=== PATIENT | male | born 1955 | race Caucasian/White ===

== ENCOUNTER → 2021-10-25 09:49 | Outpatient (BNVA) | payer OTHER, SELFPAY | PROVIDERS: Family Provider Family Medicine; PCP Family Medicine; Visit Provider Surgery | DX: Z12.11 Encounter for screening for malignant neoplasm of colon (principal) | CPT/HCPCS: 99203 ==

== ENCOUNTER 2021-11-08 11:12 | Outpatient (CLI) | payer OTHER, SELFPAY ==
--- NOTE | 2021-11-08 13:15 | PFTS_ITS ---
Date of Study:11/08/21 Date of Dictation: 11/11/21 MECHANICS: Postbronchodilator forced vital capacity (FVC) is normal. Postbronchodilator forced expiratory volume in one second (FEV1) is moderately reduced. FEV1/FVC is reduced. There is no significant response to bronchodilator FLOW VOLUME LOOP: Sloping of expiratory limb suggestive of airflow obstruction. LUNG VOLUMES: Total lung capacity (TLC) is normal. Residual volume (RV) is normal. DIFFUSING CAPACITY FOR CARBON MONOXIDE: normal. INTERPRETATION: The Spirometry showed moderate airflow obstruction. There is no significant response to bronchodilators. Lung volumes and gas transfer are normal. Clinical correlation recommended. MTDD
== END 2021-11-08 11:13 | disposition home or self-care (01) ==
LOC: RT 11:14
PROVIDERS: PCP Family Medicine; Visit Provider Family Medicine
DX: J44.9 Chronic obstructive pulmonary disease, unspecified (principal)
CPT/HCPCS: 94060; 94726; 94729; J7614

== ENCOUNTER 2022-01-26 09:24 | Day surgery (SDC) | payer OTHER, SELFPAY ==
[2022-01-24 14:15] VITALS: BMI 28.0
--- NOTE | 2022-01-26 06:52 | W.PM.OPSFHP ---
Same Day Surgery H&P Indication for Procedure/HPI DATE OF PROCEDURE: January 26, 2022 CHIEF COMPLAINT/INDICATIONFOR SURGICAL PROCEDURE: Screening colonoscopy PREOP DIAGNOSIS: Screening colonoscopy PLANNED PROCEDURE: Operation Date: 01/26/22 10:30 Proposed Procedures p Colonoscopy 76272,Z12.11(Not Applicable) - Andrey Roger MD 10/25/2021 This is a pleasant 66 years old gentleman was referred to my practice for screening colonoscopy.? Patient denies any history of bleeding per rectum or colon cancer or weight loss.? He also reports asymptomatic umbilical hernia had a cystic lesion on the right side of the abdomen where he does not have any complaints about both.? At present time.??Patient gives history of previous neck surgery back in 2017. Interim history 01/26/2022 Patient comes today for screening colonoscopy ROS All systems have been reviewed negative except as for the above or per problem list. Medications/Allergies* Home Medications Medication Instructions Recorded Confirmed Type cholecalciferol (vitamin D3) 25 25 mcg PO DAILY 01/05/21 01/26/22 History mcg (1,000 unit) capsule furosemide 20 mg tablet (Lasix) 10 mg PO QAM 01/05/21 01/26/22 History hydrochlorothiazide 12.5 mg capsule 12.5 mg PO DAILY 01/05/21 01/26/22 History metoclopramide HCl 5 mg tablet 5 mg PO DAILY 01/05/21 01/26/22 History amlodipine 10 mg tablet 10 mg PO DAILY 10/25/21 01/26/22 History atorvastatin 40 mg tablet 40 mg PO DAILY 10/25/21 01/26/22 History cetirizine 10 mg tablet 10 mg PO DAILY PRN Allergy Symptoms 10/25/21 01/26/22 History fluticasone 250 mcg-salmeterol 50 1 inh inhalation BID 10/25/21 01/26/22 History mcg/dose blistr powdr for inhalation (Wixela Inhub) hydrocodone 10 mg-acetaminophen 1 tab PO Q4H PRN Pain 10/25/21 01/26/22 History 325 mg tablet Allergies/Adverse Reactions Allergy/AdvReac Type Severity Reaction Status Date / Time No Known Allergies Allergy Verified 01/26/22 09:55 Pertinent History/Comorbid Conditions* Medical History (Updated 03/30/21 @ 14:15 by Katie Cantu DO) COPD (chronic obstructive pulmonary disease) History of ganglion cyst removal Hypertension Surgical History (Updated 01/09/22 @ 14:43 by Katie Cantu DO) History of decompression of ulnar nerve History of neck surgery 01/2017 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 -2007 Family History (Updated 01/05/21 @ 10:43 by Betty Walton) Diabetes Lung disease Denies family history of CAD (coronary artery disease) Chronic kidney disease (CKD) Cancer Stroke Social History Smoking and tobacco status: former smoker Second hand smoke exposure: No Alcohol intake: current Alcohol intake frequency: holidays/special occasions only Lives independently: Yes Pertinent Exam Findings alert, oriented x 3, regular rate & rhythm (Presence of precordial murmur) and procedure specific exam findings (Abdominal exam nontender nondistended soft) Recommendations Surgery/Procedure today (Screening colonoscopy) Coding Level of Care Code Acute Wink Cutter Operator for Alex Ruffin
[2022-01-26 09:51] VITALS: BP 168/99; PULSE 93; RESP 18; TEMP 36.6; O2SAT 95
--- NOTE | 2022-01-26 09:54 | PC.NURSE ---
patient c/o left upper arm pain x5 years. recently changed pain med to hydrocodone, states it has helped some. has an appointment with pain management on march 14.
[2022-01-26] MEDS: sodium chloride 0.9% 1,000 ML 30 ML IV (10:04)
--- NOTE | 2022-01-26 10:08 | ANES.PREANE2 ---
Pre-Anesthetic Assessment Height/Weight: Height 1.96 m Weight 107.048 kg Temp Pulse Resp BP Pulse Ox O2 Del Method 97.9 F 93 18 168/99 95 01/26/22 09:51 01/26/22 09:51 01/26/22 09:51 01/26/22 09:51 01/26/22 09:51 01/26/22 09:51 Preop Diagnosis: Screening colonoscopy Operation Date: 01/26/22 10:30 Proposed Procedures p Colonoscopy 54057,Z12.11(Not Applicable) - Andrey Roger MD Familial anesthetic complications: none Was Beta Merari taken within 24 hours: N/A Was Clonidine taken within 24 hours: N/A Last intake: Intake Last Liquid Date 01/25/22 Last Liquid Time 22:00 Last Solid Date 01/24/22 Last Solid Time 18:00 Last Intake: 22:00 Social Alcohol (2-3 beers day) and No tobacco Exam alert, oriented x 3, clear to auscultation bilaterally and regular rate & rhythm Airway Submandibular: within normal limits Cervical ROM: within normal limits Mallampati: Class I Dentition: false Pulmonary Chronic Obstructive Pulmonary Disease CV/HEM Hypertension and Murmur None reported Hepatic None reported GI None reported Metabolic None reported Musc/skel Lower Back Pain and Osteoarthritis/DJD Anesthetic Plan ASA status: 3 Anesthesia: MAC Risk of > 500 ml blood loss (7ml/kg in children): No Medications/Allergies Home Medications Medication Instructions Recorded Confirmed Last Taken Type cholecalciferol (vitamin D3) 25 25 mcg PO DAILY 01/05/21 01/26/22 01/25/22 History mcg (1,000 unit) capsule furosemide 20 mg tablet (Lasix) 10 mg PO QAM 01/05/21 01/26/22 01/25/22 History hydrochlorothiazide 12.5 mg capsule 12.5 mg PO DAILY 01/05/21 01/26/22 01/26/22 History metoclopramide HCl 5 mg tablet 5 mg PO DAILY 01/05/21 01/26/22 01/25/22 History calcipotriene 0.005 % topical 1 applic topical BID #120 grams 07/11/21 01/26/22 01/17/22 Rx ointment amlodipine 10 mg tablet 10 mg PO DAILY 10/25/21 01/26/22 01/25/22 History atorvastatin 40 mg tablet 40 mg PO DAILY 10/25/21 01/26/22 01/25/22 History cetirizine 10 mg tablet 10 mg PO DAILY PRN Allergy Symptoms 10/25/21 01/26/22 12/19/21 History fluticasone 250 mcg-salmeterol 50 1 inh inhalation BID 10/25/21 01/26/22 01/26/22 History mcg/dose blistr powdr for inhalation (Wixela Inhub) hydrocodone 10 mg-acetaminophen 1 tab PO Q4H PRN Pain 10/25/21 01/26/22 01/11/22 History 325 mg tablet Allergies Allergy/AdvReac Type Severity Reaction Status Date / Time No Known Allergies Allergy Verified 01/26/22 09:55 Current Medications Generic Name Dose Route Start Last Admin Trade Name Freq PRN Reason Stop Dose Admin Sodium Chloride 1,000 mls @ 30 mls/hr 01/26/22 09:30 01/26/22 10:04 Sodium Chloride 0.9% IV 01/27/22 09:29 30 mls/hr .Q24H MIGDALIA Administration PFSH Anesthesia Medical History COPD (chronic obstructive pulmonary disease) History of ganglion cyst removal Hypertension Surgical History History of decompression of ulnar nerve History of neck surgery 01/2017 History of surgery external aneurysm on right taoism -2007 Family History Other Diabetes Lung disease Denies family history of CAD (coronary artery disease) Chronic kidney disease (CKD) Cancer Stroke Social History Smoking and tobacco status: former smoker Second hand smoke exposure: No Alcohol intake: current Alcohol intake frequency: holidays/special occasions only Lives independently: Yes Data Anesthesia Cardiac Studies: No Data to Display
[2022-01-26 11:18] VITALS: BP 124/83; PULSE 78; RESP 16; TEMP 36.1; O2SAT 97
[2022-01-26 11:28] VITALS: BP 132/68; PULSE 87; RESP 18; O2SAT 96
--- NOTE | 2022-01-26 13:53 | ANE.PACU2 ---
Inpatient post-anesthesia follow up: Airway intact: Yes Vital signs: Temperature 97.0 F Pulse Rate 87 Respiratory Rate 18 Blood Pressure 132/68 Pulse Oximetry 96 Oxygen Delivery Me thod Room Air Oxygen Flow Rate 4 Fraction of Inspir ed Oxygen Hydration adequate: Yes Nausea and vomiting: No Pain level: 1 Mental status: Baseline
== END 2022-01-26 12:07 | disposition home or self-care (01) ==
PROVIDERS: PCP Family Medicine; Visit Provider Surgery
PROC: 0DJD8ZZ Inspection of Lower Intestinal Tract, Via Natural or Artificial Opening Endoscopic (ICD-10-PCS; CPT 45378; principal; 2022-01-26 10:30)
DX: Z12.11 Encounter for screening for malignant neoplasm of colon (principal); D12.2 Benign neoplasm of ascending colon; D12.4 Benign neoplasm of descending colon; D12.5 Benign neoplasm of sigmoid colon; D12.3 Benign neoplasm of transverse colon; D12.8 Benign neoplasm of rectum; K57.30 Diverticulosis of large intestine without perforation or abscess without bleeding; J44.9 Chronic obstructive pulmonary disease, unspecified; I10 Essential (primary) hypertension; Z87.891 Personal history of nicotine dependence
CPT/HCPCS: 45385; 88305; J2704; J7030

== ENCOUNTER → 2022-01-31 10:15 | Outpatient (BNVA) | payer OTHER, SELFPAY | PROVIDERS: PCP Family Medicine; Visit Provider Surgery | DX: Z09 Encounter for follow-up examination after completed treatment for conditions other than malignant neoplasm (principal); K57.31 Diverticulosis of large intestine without perforation or abscess with bleeding; K63.5 Polyp of colon | CPT/HCPCS: 99213 ==

== ENCOUNTER → 2022-05-23 11:39 | Outpatient (BNVA) | payer OTHER, SELFPAY | PROVIDERS: PCP Family Medicine; Visit Provider Anesthesiology Pain Medicine | DX: M54.12 Radiculopathy, cervical region (principal); M79.601 Pain in right arm; M79.602 Pain in left arm | CPT/HCPCS: 72040; 99203 ==

== ENCOUNTER → 2022-06-04 10:43 | Outpatient (BNVA) | payer OTHER, SELFPAY | PROVIDERS: PCP Family Medicine; Referring Provider Family Medicine; Visit Provider Student in an Organized Health Care Education/Training Program | DX: G56.22 Lesion of ulnar nerve, left upper limb (principal) | CPT/HCPCS: 99204 ==

== ENCOUNTER 2022-07-11 10:20 | Outpatient (CLI) | payer OTHER, SELFPAY ==
--- NOTE | 2022-07-11 10:30 | CT_ITS ---
WS: [id number] CT CERVICAL SPINE HISTORY: M54.12 - Radiculopathy, cervical region TECHNIQUE: Contiguous 2.0 mm axial imaging performed through the entire cervical spine. Sagittal and coronal reformats also performed. All CT scans at [facility] use at least one of these dose o ptimization techniques: automated exposure control; mA and/or kV adjustment per patient size (include s targeted exams where dose is matched to clinical indication); or iterative reconstruction. DLP: 762.20 mGy.cm COMPARISON: 08/14/2017 Prior anterior cervical fusion extends from C3 through C6. Interbody spacers at C3-4, C4-5 and C5-C6 are fused. 2 mm retrolisthesis of C2 and 2 mm anterolisthesis of C6. No fractures. C1 and C2 are normally aligned. The odontoid is intact. Craniocervical junction is normal. C2-C3: Mild osteophytic ridging C2 with mild encroachment upon the ventral thecal sac and mild forami nal narrowing. C3-C4: Bilateral moderate facet joint arthritis with bilateral foraminal stenosis. Slightly greater s tenosis on the RIGHT. C4-C5: Moderate bilateral facet joint arthritis with moderate foraminal stenosis. C5-C6: Mild osteophytic ridging with marked bilateral facet joint arthritis, LEFT greater than RIGHT. Moderate to severe foraminal stenosis, LEFT greater than RIGHT. C6-C7: Marked bilateral facet joint arthritis. Severe bilateral foraminal stenosis with mild encroach ment upon the ventral thecal sac. C7-T1: Mild osteophytic ridging. Facet joint osteophytes encroach into the foramina. At least moderat e foraminal stenosis due to osteophyte disease. Fibrosis at the lung apices. Scattered calcifications in the carotid arteries. CT/CT cervical spin wo con* [id number] IMPRESSION: 1. Anterior cervical fusion with interbody spacers from C3 to C6 is intact. Fu chandni across the interbody spacers. 2. Multilevel moderate to severe foraminal stenosis and facet joint arthritis. Hypertrophic bone formation with significant contribution to the foraminal yuliana nosis. Stenosis is most significant at C5-6 and C6-7.
== END 2022-07-11 10:21 | disposition home or self-care (01) ==
LOC: RAD 10:22
PROVIDERS: PCP Family Medicine; Visit Provider Anesthesiology Pain Medicine
DX: M54.12 Radiculopathy, cervical region (principal); Z98.1 Arthrodesis status; M48.02 Spinal stenosis, cervical region
CPT/HCPCS: 72125

== ENCOUNTER → 2022-07-30 09:58 | Outpatient (BNVA) | payer OTHER, SELFPAY | PROVIDERS: PCP Family Medicine; Visit Provider Student in an Organized Health Care Education/Training Program | DX: G56.22 Lesion of ulnar nerve, left upper limb (principal); Z98.890 Other specified postprocedural states | CPT/HCPCS: 99213 ==

== ENCOUNTER → 2022-08-21 10:30 | Outpatient (BNVA) | payer OTHER, SELFPAY | PROVIDERS: PCP Family Medicine; Visit Provider Anesthesiology Pain Medicine | DX: M50.323 Other cervical disc degeneration at C6-C7 level (principal); M48.02 Spinal stenosis, cervical region; Z98.890 Other specified postprocedural states | CPT/HCPCS: 99204; 99214 ==

== ENCOUNTER → 2022-10-10 09:40 | Outpatient (BNVA) | payer OTHER, SELFPAY | PROVIDERS: PCP Family Medicine; Visit Provider Anesthesiology Pain Medicine | DX: M54.50 Low back pain, unspecified (principal); M54.2 Cervicalgia | CPT/HCPCS: 99215 ==

== ENCOUNTER → 2022-12-05 09:40 | Outpatient (BNVA) | payer OTHER, SELFPAY | PROVIDERS: PCP Family Medicine; Visit Provider Anesthesiology Pain Medicine | DX: M48.02 Spinal stenosis, cervical region; M50.323 Other cervical disc degeneration at C6-C7 level; Z98.890 Other specified postprocedural states | CPT/HCPCS: 99214 ==

== ENCOUNTER → 2022-12-12 12:19 | Outpatient (BNVA) | payer OTHER, SELFPAY | PROVIDERS: PCP Family Medicine; Visit Provider Anesthesiology Pain Medicine | DX: M54.16 Radiculopathy, lumbar region (principal) | CPT/HCPCS: 64483; 64484; J1100; J3490 ==

== ENCOUNTER → 2023-01-09 13:43 | Outpatient (BNVA) | payer OTHER, SELFPAY | PROVIDERS: PCP Family Medicine; Visit Provider Anesthesiology Pain Medicine | DX: M54.16 Radiculopathy, lumbar region (principal) | CPT/HCPCS: 64483; 64484; J1100; J3490 ==

== ENCOUNTER → 2023-01-23 10:44 | Outpatient (BNVA) | payer OTHER, SELFPAY | PROVIDERS: PCP Family Medicine; Visit Provider Anesthesiology Pain Medicine | DX: M54.9 Dorsalgia, unspecified (principal); M48.02 Spinal stenosis, cervical region; L40.0 Psoriasis vulgaris; L57.0 Actinic keratosis; L57.8 Other skin changes due to chronic exposure to nonionizing radiation; L72.0 Epidermal cyst | CPT/HCPCS: 17000; 99213; 99214; 99215 ==

== ENCOUNTER → 2023-02-13 09:33 | Outpatient (BNVA) | payer OTHER, SELFPAY | PROVIDERS: PCP Family Medicine; Visit Provider Anesthesiology Pain Medicine | DX: M79.18 Myalgia, other site (principal); M54.12 Radiculopathy, cervical region | CPT/HCPCS: 20553; 99215; J1030; J3490 ==

== ENCOUNTER 2023-03-20 09:40 | Outpatient (CLI) | payer OTHER, SELFPAY ==
--- NOTE | 2023-03-20 11:00 | MR_ITS ---
WS: [id number] MRI LUMBAR SPINE NONCONTRAST TECHNIQUE: Sagittal T1, T2 and STIR imaging. Axial T1 and T2 imaging. CLINICAL INFORMATION: M48.062 - Spinal stenosis, lumbar region with neurogenic ... COMPARISON: MRI 2017 FINDINGS: Counting performed from the craniocervical junction. 13 rib-bearing thoracic vertebral bodies. 5 lumb ar type vertebral bodies considered L1-L5 for the purposes of this dictation. Small riblets at T12. S mall central protrusion at T12-L1 with mild central canal stenosis. This is progressed compared to pr evious. L1-L2: Mild disc bulging with slight effacement of the ventral thecal sac. Spinal canal and foramen a re patent. L2-L3: Disc bulging with moderate to severe narrowing of the thecal sac with crowding of the cauda eq uina nerve rootlets. Prominent dorsal epidural fat results in thecal sac narrowing. Moderate facet ar thropathy. Mild RIGHT foraminal narrowing. Central canal stenosis at this level has progressed. L3-L4: Moderate to severe narrowing of the thecal sac mainly due to prominent dorsal epidural fat pro gressed compared to previous. Crowding of the cauda equina nerve rootlets. Moderate facet arthropathy . Ligamentum flavum hypertrophy. Moderate to severe LEFT foraminal narrowing with impingement on the exiting LEFT L3 nerve root progressed compared to previous. L4-L5: Grade 1 anterolisthesis. Mild disc bulge with osteophytic ridging. Narrowing of the subarticul ar recess bilaterally. Mild central canal stenosis. This has progressed compared to previous. Advance d facet arthropathy and ligamentum flavum hypertrophy. Small facet effusions. Mild RIGHT and no signi ficant LEFT foraminal narrowing. L5-S1: Mild annular bulging with slight effacement of the ventral thecal sac. Spinal canal and forame n are patent. Mild facet arthropathy. Small LEFT renal cyst. Multiple central disc protrusions in the mid and lower thoracic spine with con tact of the thoracic cord seen on the garnett feeder imaging. This could be further evaluated with thoracic sp ine MRI. Visualized pelvic bony structures: Normal. Paravertebral soft tissues: Normal. IMPRESSION: 1. Counting performed from the craniocervical junction. 13 rib-bearing thoracic vertebral bodies. 5 lumbar type vertebral bodies considered L1-L5 for the purposes of this dictation. 2. Moderate to severe narrowing of the thecal sac L2-L3 and L3-L4 with crowding of the cauda equina nerve rootlets progressed compared to previous. This is primarily due to increased dorsal epidural fa t. 3. Mild central canal stenosis L4-5 with impingement on the traversing RIGHT greater than LEFT L5 ne rve roots. 4. Moderate to severe LEFT L3-4 foraminal narrowing with impingement on the exiting LEFT L3 nerve ro ot. 5. Mild RIGHT L4-5 foraminal narrowing. 6. Mild multilevel moderate to severe facet arthropathy worse at L3-L4 and L4-L5 with bilateral face t effusions at L4-5.
== END 2023-03-20 09:41 | disposition home or self-care (01) ==
PROVIDERS: PCP Family Medicine; Visit Provider Anesthesiology Pain Medicine
DX: M48.062 Spinal stenosis, lumbar region with neurogenic claudication (principal); M47.817 Spondylosis without myelopathy or radiculopathy, lumbosacral region; M54.16 Radiculopathy, lumbar region
CPT/HCPCS: 72148

== ENCOUNTER 2023-04-17 10:10 | Outpatient (CLI) | payer OTHER, SELFPAY ==
[2023-04-17 13:53] VITALS: PULSE 96; RESP 16; O2SAT 98
[2023-04-17] MEDS: albuterol 2.5 mg/3 mL Neb INHALATION (13:57)
[2023-04-17 13:58] VITALS: PULSE 99
== END 2023-04-17 10:11 | disposition home or self-care (01) ==
LOC: RT 10:10
PROVIDERS: PCP Family Medicine; Visit Provider Nurse Practitioner Family
DX: M48.02 Spinal stenosis, cervical region (principal); Z01.89 Encounter for other specified special examinations; G62.9 Polyneuropathy, unspecified; Z87.891 Personal history of nicotine dependence; Z98.1 Arthrodesis status; R94.2 Abnormal results of pulmonary function studies
CPT/HCPCS: 94060; 94729; 99214

== ENCOUNTER → 2023-05-01 13:03 | Outpatient (BNVA) | payer OTHER, SELFPAY | PROVIDERS: PCP Family Medicine; Visit Provider Anesthesiology Pain Medicine | DX: M79.18 Myalgia, other site (principal); M54.9 Dorsalgia, unspecified; M54.2 Cervicalgia; M25.552 Pain in left hip | CPT/HCPCS: 20553; 99213; J1030; J3490 ==

== ENCOUNTER → 2023-05-20 10:18 | Outpatient (BNVA) | payer OTHER, SELFPAY | PROVIDERS: PCP Family Medicine; Visit Provider Anesthesiology Pain Medicine | DX: M47.817 Spondylosis without myelopathy or radiculopathy, lumbosacral region (principal); M48.061 Spinal stenosis, lumbar region without neurogenic claudication; M48.02 Spinal stenosis, cervical region; M47.812 Spondylosis without myelopathy or radiculopathy, cervical region | CPT/HCPCS: 99215 ==

== ENCOUNTER → 2023-06-21 11:16 | Outpatient (BNVA) | payer OTHER, SELFPAY | PROVIDERS: PCP Family Medicine; Referring Provider Family Medicine; Visit Provider Orthopaedic Surgery | DX: M43.16 Spondylolisthesis, lumbar region (principal); M48.061 Spinal stenosis, lumbar region without neurogenic claudication; Z01.812 Encounter for preprocedural laboratory examination; Z79.899 Other long term (current) drug therapy | CPT/HCPCS: 36415; 72110; 80053; 81001; 85025; 87077; 87086; 87186; 99214 ==

== ENCOUNTER 2023-07-12 12:22 | Inpatient (IN) | payer OTHER, SELFPAY ==
[2023-07-12] VITALS (32 sets, daily range): BP systolic 75–148; BP diastolic 60–94; PULSE 73–123; RESP 10–25; TEMP 36.6–36.8; O2SAT 90–96
--- NOTE | 2023-07-12 12:39 | ECG_ITS ---
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 Measurements Intervals [place] Rate: 145 P: 0 AR: 0 QRS: -10 QRSD: 98 T: 87 QT: 301 QTc: 468 Interpretive Statements ATRIAL FIBRILLATION WITH RAPID VENTRICULAR RESPONSE MODERATE VOLTAGE CRITERIA FOR LVH, CONSIDER NORMAL VARIANT [MEETS CRITERIA IN ONE OF: R(aVL), S(V1), R(V5), R(V5/V6)+S(V1)] POSSIBLE SEPTAL MYOCARDIAL INFARCTION , PROBABLY OLD [30 ms Q WAVE IN V1/V2] ABNORMAL RHYTHM ECG No previous ECG available for comparison Electronically Signed On 07-12-2023 17:59:41 ASSEMBLY INSPECTOR by Burton Mooney M.D. [id number]
--- NOTE | 2023-07-12 12:39 | XR_ITS ---
WS: [id number] Exam: XR chest 1V portable [id number] Date/Time of Exam: 07/12/2023 12:49 PM Reason For Exam: palpitations Comparison with outside images performed 09/27/2021. The lungs are clear and fully expanded. Normal cardiomediastinal silhouette. No pleural effusions. Un remarkable bony structures. Fusion hardware in the lower C-spine. IMPRESSION: 1. No acute cardiopulmonary finding.
[2023-07-12] MEDS: dilTIAZem 5 mg/mL SDV 5 mL 10 MG IVP ×2 (12:52→13:22)
[2023-07-12] MEDS: aspirin 81 mg Chew Tablet 324 MG PO (12:52)
[2023-07-12] MEDS: ondansetron 2 mg/ML SDV 2 mL 4 MG IVP (12:52)
[2023-07-12 12:53] LABS: Basophils # 0.1 10^3/uL (0.0-0.1); Basophils % 0.8 %; Eosinophils # 0.1 10^3/uL (0.0-0.8); Eosinophils % 0.6 %; Hematocrit 44.8 % (37-53); Lymphocytes # 1.4 10^3/uL (0.8-4.8); Lymphocytes % 11.5 %; Mean Corpuscular HGB Conc 34.6 g/dL (30-55); Mean Corpuscular Hemoglobin 32.5 pg (27-33); Mean Corpuscular Volume 93.9 fl (82-101); Mean Platelet Volume 12.2 fL (7.4-10.4); Monocytes # 0.9 10^3/uL (0.2-0.9); Monocytes % 7.6 %; Neutrophils # 9.27 10^3/uL (1.8-7.7); Neutrophils % 78.8 %; Nucleated Red Blood Cells % 0 %; Platelet Count 139 10^3/cmm (157-399); Red Blood Count 4.77 10^6/uL (3.85-5.65); Red Cell Distribution Width 16.3 % (12.1-15.1); White Blood Count 11.78 10^3/uL (3.29-11.43)
[2023-07-12] MEDS: sodium chloride 0.9% 1,000 ML 999 ML IV (12:53)
--- NOTE | 2023-07-12 13:06 | W.ED.ARRPALP ---
HPI - Arrhythmia/Palpitations General: Chief Complaint: Arrhythmia/Palpitations Stated Complaint: sent over by , irregular heartbeat Time Seen by Provider: 07/12/23 12:38 History of Present Illness: 77-year-old male presents emergency department chief complaint of palpitations and concerns of atrial fibrillation patient was doing some outpatient testing for preoperative clearance for back surgery is coming up in which patient was noted to be an elevated heart rate in the 140s concerning for atrial fibrillation. Patient does not endorse any chest pain palpitations water rate retention or current weight gain patient does not endorse any chest pain at this time patient does not recall any prior history of any cardiac issues. The patient appears asymptomatic at this time patient was presented to the ER for further assessment and management. Associated symptoms: Deny anxiety, nausea or vomiting Review of Systems General: Reports: 10 or more systems reviewed and unremarkable except in HPI and below Const: Denies: fever(s), chills, fatigue or malaise Eyes: Denies: change in vision or blurry vision Card: Denies: chest pain or palpitations Resp: Denies: dyspnea or productive cough GI: Denies: abdominal pain, nausea or vomiting : Denies: flank pain Musc: Denies: extremity pain or extremity swelling Skin/Breast: Denies: rash or pruritus Neuro: Denies: headache(s) Psych: Denies: anxiety or depression Mat/Lymph: Denies: easy bleeding All/Imm: Denies: urticaria, throat swelling or facial swelling [facility] ED PFSH: Medical History Ulnar nerve neuropathy History of ganglion cyst removal Hypertension COPD (chronic obstructive pulmonary disease) Surgical History History of cervical spinal surgery History of decompression of ulnar nerve History of neck surgery 01/2017 History of surgery external aneurysm on right christianity -2007 Family History Other Diabetes Lung disease Denies family history of CAD (coronary artery disease) Chronic kidney disease (CKD) Cancer Stroke Social History Smoking and tobacco/nicotine status: former use of tobacco/nicotine Second hand smoke exposure: No Alcohol intake: current Alcohol intake frequency: holidays/special occasions only Substance/Drug Use: never Lives independently: Yes Physical Exam Narrative: EXAM NARRATIVE: Patient appears somewhat anxious on exam however appears in no obvious acute distress. Const: COMMON NORMALS: no acute distress, patient oriented x3 and healthy appearing HENMT: COMMON NORMALS: normocephalic and atraumatic HEAD & SCALP: normocephalic and atraumatic Eye: COMMON NORMALS: Equal, round and reactive pupils present and EOMs intact bilaterally PUPIL: Yes Equal, round and reactive pupils present Neck/C-Spine: COMMON NORMALS: full ROM, supple and no JVD Lymph: LYMPHATIC: no lymphadenopathy noted Chest: COMMONS NORMALS: normal inspection of the chest and normal palpation of entire chest wall Resp: COMMON NORMALS: normal respiratory effort, No retractions and clear to auscultation bilaterally EFFORT & INSPECTION: Yes able to speak in complete sentences and Yes symmetric chest movement AUSCULTATION: clear to auscultation bilaterally Cardio: COMMON NORMALS: no JVD; negative for regular rate and negative for regular rhythm (Patient was found to be A-fib with RVR with a rapid ventricular rate of danielle) RATE: abnormal rate and tachycardic RHYTHM: abnormal rhythm (Patient was found to be A-fib with RVR with a rapid ventricular rate of danielle) GI: COMMON NORMALS: Normal to inspection, nondistended, normoactive bowel sounds present, Soft to palpation and non-tender INSPECTION: Yes normal to inspection PALPATION: Yes Soft to palpation : COMMON NORMALS: Yes no CVA tenderness BLADDER/KIDNEY EXAM: Yes no CVA tenderness Back/Pelvis: COMMON NORMALS: no CVA tenderness Extremity: COMMON NORMALS: normal to inspection and full ROM Neuro: COMMON NORMALS: patient oriented x3, CN's II-XII intact bilaterally, moves all extremities and no focal motor deficits Psych: COMMON NORMALS: mental status grossly normal, Normal thought process present, cooperative and normal affect THOUGHT PROCESS: Normal thought process present Skin: COMMON NORMALS: no rashes or lesions noted GENERAL SKIN EXAM: no rashes or lesions noted Course Vital Signs: Vital signs: Vital Signs Temperature 97.8 F 07/12/23 12:23 Pulse Rate 106 H 07/12/23 13:54 Respiratory Rate 16 07/12/23 13:54 Blood Pressure 123/75 07/12/23 13:54 Pulse Oximetry 93 07/12/23 13:54 Oxygen Delivery Me thod Room Air 07/12/23 13:54 MDM - Arrhythmia/Palpitations Medical Decision Making Patient is found to be in A-fib with RVR current rate is in the 140s will be started the patient on a cardiac workup applied the patient a dose of Cardizem patient most likely will require Cardizem drip but he does not respond with the IV push Cardizem patient is otherwise asymptomatic at this time anticipate the need for probable admission placing the patient on a Cardizem drip as well as further evaluation by cardiology and medicine. Patient was found to have elevated cardiac troponins no current chest pain patient also was found to be somewhat hypokalemic which potassium was provided. Discussed patient's case with hospitalist Dr. Jones there is greater acceptance to the CCU patient remained in stable condition at this time currently on a Cardizem drip. Lab Data 07/12/23 12:46 07/12/23 13:19 Laboratory Results WBC 11.78 10^3/uL (3.29-11.43) H 07/12/23 12:46 RBC 4.77 10^6/uL (3.85-5.65) 07/12/23 12:46 Hgb 15.50 g/dL (11.27-16.99) 07/12/23 12:46 Hct 44.8 % (37-53) 07/12/23 12:46 MCV 93.9 fl (82-101) 07/12/23 12:46 MCH 32.5 pg (27-33) 07/12/23 12:46 MCHC 34.6 g/dL (30-55) 07/12/23 12:46 RDW 16.3 % (12.1-15.1) H 07/12/23 12:46 Plt Count 139 10^3/cmm (157-399) L 07/12/23 12:46 MPV 12.2 fL (7.4-10.4) H 07/12/23 12:46 Neut % (Auto) 78.8 % 07/12/23 12:46 Lymph % (Auto) 11.5 % 07/12/23 12:46 [place] % (Auto) 7.6 % 07/12/23 12:46 Eos % (Auto) 0.6 % 07/12/23 12:46 Baso % (Auto) 0.8 % 07/12/23 12:46 Neut # (Auto) 9.27 10^3/uL (1.8-7.7) H 07/12/23 12:46 Lymph # (Auto) 1.4 10^3/uL (0.8-4.8) 07/12/23 12:46 [place] # (Auto) 0.9 10^3/uL (0.2-0.9) 07/12/23 12:46 Eos # (Auto) 0.1 10^3/uL (0.0-0.8) 07/12/23 12:46 Baso # (Auto) 0.1 10^3/uL (0.0-0.1) 07/12/23 12:46 Nucleated RBC % (auto) 0 % 07/12/23 12:46 Nucleated RBCs # 0.0 /100WBC 07/12/23 12:46 PT 15.50 SECONDS (12.1-14.9) H 07/12/23 12:46 INR 1.19 (0.8-1.2) 07/12/23 12:46 APTT 27.6 SECONDS (23.9-36.7) 07/12/23 12:46 Sodium 136 mmol/L (136-145) 07/12/23 13:19 Potassium 2.6 mmol/L (3.5-5.1) L* 07/12/23 13:19 Chloride 97 mmol/L (98-107) L 07/12/23 13:19 Carbon Dioxide 21 mmol/L (22-29) L 07/12/23 13:19 Anion Gap 20.6 (5-19) H 07/12/23 13:19 BUN 10 mg/dL (8-23) 07/12/23 13:19 Creatinine 1.2 mg/dL (0.7-1.2) 07/12/23 13:19 GFR Calculation 60.8 mL/min (90-130) L 07/12/23 13:19 Glucose 147 mg/dL (65-115) H 07/12/23 13:19 Calculated Osmolality 284 mOsm/kg (285-295) L 07/12/23 13:19 Calcium 8.6 mg/dL (8.5-10.5) 07/12/23 13:19 Total Bilirubin 5.4 mg/dL (0.15-1.2) H 07/12/23 13:19 AST 85 U/L (0-40) H 07/12/23 13:19 ALT 50 U/L (0-41) H 07/12/23 13:19 Alkaline Phosphatase 261 U/L (40-130) H 07/12/23 13:19 Troponin T Baseline 41 ng/L (0-15) H 07/12/23 13:19 NT-Pro-B Natriuret Pep 442 pg/mL (0-125) H 07/12/23 13:19 Total Protein 6.4 g/dL (6.6-8.7) L 07/12/23 13:19 Albumin 3.2 g/dL (3.5-5.2) L 07/12/23 13:19 Globulin 3.2 g/dL (1.3-4.6) 07/12/23 13:19 All radiology interpretation(s) finalized by discharge Discharge Plan Discharge Patient Disposition: Admitted As Inpatient Clinical Impression: Atrial fibrillation with rapid ventricular response Condition: Stable Prescriptions: No Action metoclopramide HCl 5 mg tablet 5 mg PO DAILY cholecalciferol (vitamin D3) 25 mcg (1,000 unit) capsule 25 mcg PO DAILY hydrochlorothiazide 12.5 mg capsule 12.5 mg PO DAILY calcipotriene 0.005 % ointment 1 applic topical BID Qty: 120 2RF Rx Instructions: rub in gently and completely to affected areas on the lower extremities amlodipine 10 mg tablet 10 mg PO DAILY atorvastatin 40 mg tablet 40 mg PO DAILY fluticasone propion-salmeterol [Wixela Inhub] 250-50 mcg/dose blister with device 1 inh inhalation BID gabapentin 300 mg capsule 300 mg PO TID Qty: 90 3RF potassium chloride 10 mEq Tablet Extended Release 10 meq PO DAILY Referrals: Debora Garcia MD [Primary Care Provider] - Coding Level of Care Code ED Painting Machine Operator for Caryg Laly
[2023-07-12 13:08] LABS: INR 1.19 (0.8-1.2)
[2023-07-12 13:10] LABS: Partial Thromboplastin Time 27.6 SECONDS (23.9-36.7)
[2023-07-12] MEDS: dilTIAZem 100 MG in sodium chloride 0.9% (add-van) 100 ML IV (13:22)
[2023-07-12 13:54] LABS: Troponin(5th) Baseline 41 ng/L (0-15)
--- NOTE | 2023-07-12 14:01 | ECG_ITS ---
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 Measurements Intervals [place] Rate: 105 P: 0 [place]: 0 QRS: -23 QRSD: 106 T: 84 QT: 384 QTc: 508 Interpretive Statements ATRIAL FIBRILLATION WITH RAPID VENTRICULAR RESPONSE INCOMPLETE RIGHT BUNDLE BRANCH BLOCK [90+ ms QRS DURATION, TERMINAL R IN V1/V2, 40+ ms S IN I/aVL/V4/V5/V6] MODERATE VOLTAGE CRITERIA FOR LVH, CONSIDER NORMAL VARIANT [MEETS CRITERIA IN ONE OF: R(aVL), S(V1), R(V5), R(V5/V6)+S(V1)] POSSIBLE SEPTAL MYOCARDIAL INFARCTION , PROBABLY OLD [30 ms Q WAVE IN V1/V2] ABNORMAL RHYTHM ECG Compared to ECG 07/12/2023 12:27:35 Incomplete right bundle-branch block now present Myocardial infarct finding still present Electronically Signed On 07-12-2023 18:04:33 WRAPPER CASER by Burton Mooney M.D. [id number]
[2023-07-12 14:05] LABS: Alanine Aminotransferase 50 U/L (0-41); Albumin Level 3.2 g/dL (3.5-5.2); Alkaline Phosphatase 261 U/L (40-130); Anion Gap 20.6 (5-19); Aspartate Amino Transferase 85 U/L (0-40); Blood Urea Nitrogen 10 mg/dL (8-23); Calcium 8.6 mg/dL (8.5-10.5); Carbon Dioxide 21 mmol/L (22-29); Chloride 97 mmol/L (98-107); Creatinine Clr Calc Pharmacy 79.4806; Globulin 3.2 g/dL (1.3-4.6); Glomerular Filtration Rate 60.8 mL/min (90-130); Glucose 147 mg/dL (65-115); NT Pro B Type Natriuretic Pept 442 pg/mL (0-125); Osmolality Calculated 284 mOsm/kg (285-295); Sodium 136 mmol/L (136-145); Total Bilirubin 5.4 mg/dL (0.15-1.2); Total Protein 6.4 g/dL (6.6-8.7)
[2023-07-12 14:07] LABS: Potassium 2.6 mmol/L (3.5-5.1)
--- NOTE | 2023-07-12 14:25 | P.HP_ITS ---
Providers/Chief Complaint 2 Primary Care Provider: Debora Garcia MD Chief Complaint: sent over by , irregular heartbeat History of Present Illness Jose Mosley is a 67 year old male With past medical history of hypertension, COPD, peripheral neuropathy presented to the hospital today after being sent from his primary care doctor's office. He is going to be getting a L3-L4 L4-L5 PLIF with decompression on 07/17/[address] De La Vega and he went to see his primary to get cleared for surgery. He went to get outpatient testing done and presented with a heart rate of 140 concerning for atrial fibrillation. Patient was sent to the ER. Patient denies complaint of palpitations, chest pain, shortness of breath, weight gain, lower extremity swelling, abdominal pain, nausea, vomiting, diarrhea. He states he feels asymptomatic. ED course: 123/75 heart rate 16, pulse 106, temperature 97.8, saturating 93% on room air. Patient found to be in A-fib with RVR on EKG and he was given IV Cardizem push after which she was started on a Cardizem drip. Troponins ordered. First troponin 41, BNP 442, WBC 11.7. Potassium found to be 2.4. 40 potassium orally x 1 was given. Hospitalist called for admission. Medications/Allergies Home Medications Medication Instructions Recorded Confirmed Last Taken Type cholecalciferol (vitamin D3) 25 25 mcg PO DAILY 01/05/21 07/12/23 07/11/23 History mcg (1,000 unit) capsule hydrochlorothiazide 12.5 mg capsule 12.5 mg PO DAILY 01/05/21 07/12/23 07/11/23 History metoclopramide HCl 5 mg tablet 5 mg PO DAILY 01/05/21 07/12/23 07/11/23 History calcipotriene 0.005 % topical 1 applic topical BID #120 grams 07/11/21 07/12/23 07/11/23 Rx ointment amlodipine 10 mg tablet 10 mg PO DAILY 10/25/21 07/12/23 07/12/23 History atorvastatin 40 mg tablet 40 mg PO DAILY 10/25/21 07/12/23 07/11/23 History fluticasone 250 mcg-salmeterol 50 1 inh inhalation BID 10/25/21 07/12/23 07/11/23 History mcg/dose blistr powdr for inhalation (Wixela Inhub) gabapentin 300 mg capsule 300 mg PO TID pain #90 caps 10/10/22 07/12/23 07/12/23 Rx potassium chloride 10 mEq 10 meq PO DAILY 07/12/23 07/12/23 07/11/23 History tablet,extended release Allergies Allergy/AdvReac Type Severity Reaction Status Date / Time No Known Allergies Allergy Verified 07/12/23 13:37 PFSH Acute 2 PFSH: Medical History (Updated 07/12/23 @ 19:35 by Viry Jones MD) Ulnar nerve neuropathy History of ganglion cyst removal Hypertension COPD (chronic obstructive pulmonary disease) Surgical History History of cervical spinal surgery History of decompression of ulnar nerve History of neck surgery 01/2017 History of surgery external 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 Family History Other Diabetes Lung disease Denies family history of CAD (coronary artery disease) Chronic kidney disease (CKD) Cancer Stroke Social History Smoking and tobacco/nicotine status: former use of tobacco/nicotine Second hand smoke exposure: No Alcohol intake: current Alcohol intake frequency: holidays/special occasions only Substance/Drug Use: never Lives independently: Yes Vitals/I&O/Wt Last Vital Signs Temp 97.8 F 07/12/23 12:23 Pulse 106 H 07/12/23 13:54 Resp 16 07/12/23 13:54 BP 123/75 07/12/23 13:54 Pulse Ox 93 07/12/23 13:54 O2 Del Method Room Air 07/12/23 13:54 07/11/23 07/12/23 07/12/23 22:59 06:59 14:59 Intake Total 3.167 / 3.167 Balance 3.167 / 3.167 Weight last 48 hrs Weight 95.254 kg Physical Exam 2 Narrative: General: Alert oriented x3, patient seen sitting up in bed appearing comfortable. HEENT: Normocephalic, atraumatic, EOMI, breathing comfortably on room air. Cardio: irregularly irregular, normal S1-S2, no jvd elevation Respiratory: Mild crackles bilaterally at bases. GI: Abdomen soft, nontender, nondistended, bowel sounds + Behavior: Appropriate and cooperative Extremities: NO edema ble Data 07/12/23 12:46 07/12/23 17:17 A&P Assessment and plan (1) Atrial fibrillation with rapid ventricular response: (2) Hypertension: (3) Heart failure: Plan #Atrial fibrillation with RVR #New onset congestive heart failure, unspecified #COPD, not in exacerbation #Hypertension #Hypokalemia ? Patient presents with new onset A-fib with RVR on routine preop testing. ? Cardizem push given. Continue on Cardizem drip ? Check echocardiogram ? I will give Lasix 20 IV x 1 ? BNP elevated 442 ? Stable from respiratory standpoint COPD not in exacerbation. Does not require use of oxygen ? Takes Advair as an outpatient ? Replete potassium. Keep potassium above 4 magnesium above 2 ? Recheck magnesium potassium in a.m. ? Convert to oral Cardizem once rate controlled. ? Discussed with patient regarding anticoagulation secondary to atrial fibrillation ? He will need a cardiology follow-up after discharge ? Denies any chest pain. Initial troponin 44, subsequent troponins pending at this time. - Check TSH, HBA1C, Lipid panel Full code SCDs, heparin SQ twice daily Attestations 2 Medical Necessity Statement*: Anticipate < 48 hours stay Diagnoses Atrial fibrillation with rapid ventricular response I48.91 Hypertension I10 Heart failure I50.9
[2023-07-12 14:34] LABS: Alcohol Level < 10 mg/dL (0-10)
[2023-07-12 15:12] LABS: Estmated Average Glucose 82; Hemoglobin A1C 4.5 % (4.0-6.0)
[2023-07-12 15:15] LABS: Thyroid Stimulating Hormone 1.55 uIU/mL (0.27-4.20)
[2023-07-12] MEDS: potassium chloride ER 20 mEq Tablet 40 MEQ PO (15:56)
[2023-07-12] MEDS: sodium chloride 0.9% 1,000 ML 75 ML IV (16:00)
[2023-07-12] MEDS: potassium phosphate (mEq K) 20 MEQ in sodium chloride 0.9% (100 ml) 100 ML 27.2699999999999996 MEQ IV (16:08)
--- NOTE | 2023-07-12 16:36 | PC.NURSE ---
Pt admitted to ICU as CSU-OF from Ed. Pt alert and oriented. Amiodarone gtt infusing at 1 mg/min. without difficulty. No chest pain or dizziness per pt. Sinus rhythm noted on monitor
[2023-07-12 16:54] LABS: Troponin 5 2HR 36.42 ng/L (0-15)
[2023-07-12 16:55] LABS: Troponin 5 2HR Delta -4.58 ABS# (0-10)
[2023-07-12 17:40] LABS: Blood Urea Nitrogen 9 mg/dL (8-23); Calcium 8.3 mg/dL (8.5-10.5); Carbon Dioxide 24 mmol/L (22-29); Chloride 96 mmol/L (98-107); Creatinine Clr Calc Pharmacy 95.3767; Glucose 167 mg/dL (65-115); Osmolality Calculated 276 mOsm/kg (285-295); Sodium 132 mmol/L (136-145)
--- NOTE | 2023-07-12 18:12 | PC.NURSE ---
arrived from ED, AO x4 no c/o
[2023-07-12] MEDS: gabapentin 300 mg Capsule PO (19:55)
[2023-07-12] MEDS: FUROsemide 10 mg/mL SDV 2mL 20 MG IVP (19:55)
[2023-07-12 20:00] LABS: Chol HDL Ratio 3.24 mg/dL (1.0-5.00); Cholesterol 165 mg/dL (0-200); HDL Cholesterol 51 mg/dL (60-100); LDL Cholesterol Calculated 98 mg/dL (50-129); Triglycerides 82 mg/dL (0-150); VLDL Cholestrol Calculation 16 mg/dL (0-30)
[2023-07-12] MEDS: budesonide 0.5 mg/2 mL Neb INHALATION (20:07)
[2023-07-12] MEDS: albuterol 2.5 mg/3 mL Neb INHALATION (20:07)
[2023-07-12 20:08] LABS: Troponin 5 6HR 33.99 ng/L (0-15)
[2023-07-12 20:09] LABS: Troponin 5 6HR Delta -7.01 ng/L (0-12)
[2023-07-12] MEDS: dilTIAZem 100 MG in sodium chloride 0.9% (add-van) 100 ML 10 MG IV (21:01)
--- NOTE | 2023-07-12 21:16 | ECG_ITS ---
[facility] Test Date: 2023-07-12 Pat Name: Jose Mosley Department: Room: ICU03 Gender: Male Historical Interpreter: : 1955 Requested By: Patrick August Order Number: [id number] Kelli MD: Pavan Mckinley M.D. Measurements Intervals [place] Rate: 91 P: 0 UT: 0 QRS: -20 QRSD: 106 T: 74 QT: 322 QTc: 397 Interpretive Statements ATRIAL FIBRILLATION MODERATE VOLTAGE CRITERIA FOR LVH, CONSIDER NORMAL VARIANT [MEETS CRITERIA IN ONE OF: R(aVL), S(V1), R(V5), R(V5/V6)+S(V1)] NONSPECIFIC ST & T-WAVE ABNORMALITY Compared to ECG 07/12/2023 14:01:01 T-wave abnormality now present Incomplete right bundle-branch block no longer present Myocardial infarct finding no longer present Electronically Signed On 07-13-2023 10:13:07 TELEVISION MAINTENANCE MAN by Pavan Mckinley M.D. [id number]
[2023-07-12 22:28] LABS: Bilirubin Urine 1+ (Negative); Blood Urine 2+ (Negative); Glucose Urine UA Norm (Normal); Ketones Urine Negative (Negative); Leukocyte Esterase Urine 1+ (Negative); Nitrate Urine Negative (Negative); Protein Urine Neg (Negative); Urine Appearance Clear (CLEAR); Urine Color Amber (Yellow); Urobilinogen Urine 4 mg/dL (Negative); pH Urine 7 (5-7)
[2023-07-12 22:29] LABS: Add Urine Microscopic? YES
[2023-07-12 22:31] LABS: Add Urine Culture? Yes; Bacteria Urine 1+ /hpf; Calcium Oxalate Crystals Urine 0-4 /hpf; Squamous Epithelial Cell Urine 0-4 /hpf (0-5)
[2023-07-12 22:33] LABS: Amphetamines Screen Urine Negative (Negative); Barbiturates Screen Urine Negative (Negative); Benzodiazepines Screen Urine Negative (Negative); Cocaine Screen Urine Negative (Negative); Opiate Screen Urine Negative (Negative); PCP Screen Urine Negative (Negative); THC Screen Urine Negative (Negative)
[2023-07-13] VITALS (35 sets, daily range): BP systolic 92–128; BP diastolic 44–80; PULSE 64–121; RESP 14–28; TEMP 36.8; O2SAT 80–96
[2023-07-13 03:58] LABS: Basophils # 0.1 10^3/uL (0.0-0.1); Basophils % 0.9 %; Eosinophils # 0.4 10^3/uL (0.0-0.8); Eosinophils % 3.9 %; Hematocrit 38.3 % (37-53); Lymphocytes # 2.4 10^3/uL (0.8-4.8); Lymphocytes % 24.1 %; Mean Corpuscular HGB Conc 34.2 g/dL (30-55); Mean Corpuscular Hemoglobin 32.4 pg (27-33); Mean Corpuscular Volume 94.8 fl (82-101); Mean Platelet Volume 12.3 fL (7.4-10.4); Monocytes % 9.4 %; Neutrophils % 61.2 %; Nucleated Red Blood Cells % 0 %; Platelet Count 108 10^3/cmm (157-399); Red Blood Count 4.04 10^6/uL (3.85-5.65); Red Cell Distribution Width 16.5 % (12.1-15.1); White Blood Count 10.13 10^3/uL (3.29-11.43)
[2023-07-13] MEDS: sodium chloride 0.9% 1,000 ML 75 ML IV (04:14)
[2023-07-13] MEDS: dilTIAZem 100 MG in sodium chloride 0.9% (add-van) 100 ML 10 MG IV (04:14)
[2023-07-13 04:17] LABS: Alanine Aminotransferase 43 U/L (0-41); Albumin Level 2.9 g/dL (3.5-5.2); Alkaline Phosphatase 219 U/L (40-130); Anion Gap 15.6 (5-19); Aspartate Amino Transferase 72 U/L (0-40); Blood Urea Nitrogen 9 mg/dL (8-23); Calcium 8.1 mg/dL (8.5-10.5); Carbon Dioxide 26 mmol/L (22-29); Chloride 100 mmol/L (98-107); Creatinine Clr Calc Pharmacy 119.4531; Globulin 2.7 g/dL (1.3-4.6); Glucose 99 mg/dL (65-115); Magnesium 1.4 mg/dL (1.7-2.3); Osmolality Calculated 287 mOsm/kg (285-295); Sodium 139 mmol/L (136-145); Total Bilirubin 4.1 mg/dL (0.15-1.2); Total Protein 5.6 g/dL (6.6-8.7)
[2023-07-13 04:37] LABS: Potassium 2.6 mmol/L (3.5-5.1)
[2023-07-13] MEDS: lidocaine 1% 5 ML in potassium chloride premix 100 ML 52.5 ML IV (05:39)
[2023-07-13] MEDS: potassium chloride oral liq 20 mEq/15 mL UDC 40 MEQ PO (05:40)
[2023-07-13] MEDS: magnesium sulfate premix 4 GM/100 ML PREMIX IV (05:40)
--- NOTE | 2023-07-13 06:04 | PC.NURSE ---
Patient's heart rate is 55 to 60. Patient is on amiodarone at 0.5mg/min currently and has dose of metoprolol 50mg. Informed Dr Beckwith and received order to hold metoprolol dose this am and continue with amiodarone as ordered. RBVO
[2023-07-13] MEDS: atorvastatin 40 mg Tablet PO (08:46)
[2023-07-13] MEDS: gabapentin 300 mg Capsule PO ×2 (08:46→16:18)
--- NOTE | 2023-07-13 09:28 | CTR_ITS ---
PROCEDURE INFORMATION: Exam: CT Abdomen And Pelvis With Contrast Exam date and time: 07/13/2023 9:40 AM Age: 67 years old Clinical indication: Abnormal findings; Abnormal lab test; Other: Elevated bilirubin; Additional info: Elevated bilirubin 4.1 TECHNIQUE: Imaging protocol: Computed tomography of the abdomen and pelvis with contrast. Radiation optimization: All CT scans at this facility use at least one of these dose optimization techniques: automated exposure control; mA and/or kV adjustment per patient size (includes targeted exams where dose is matched to clinical indication); or iterative reconstruction. Contrast material: OMNI 350; Contrast volume: 100 ml; Contrast route: INTRAVENOUS (IV); COMPARISON: MR lumbar spine wo con* [id number] 03/20/2023 11:07 AM RADIATION DOSE METRICS: Total DLP (mGy-cm): 838.12 FINDINGS: Lungs: Mild dependent atelectatic changes. Coronary artery calcifications noted. Liver: Marked heterogeneous hypodensity throughout without a discrete focal lesion. Portal vein is patent. Hepatic veins are patent. Gallbladder and bile ducts: Contracted gallbladder with minimal pericholecystic edema. No significant biliary ductal dilatation is identified. Pancreas: 2.2 x 2.3 x 2.3 cm hypodense lesion in tail of the pancreas suspicious for neoplasm. The remainder of the pancreas is unremarkable. No ductal dilatation. Spleen: Minimally enlarged measuring 13 x 5 x 13.5 cm. Adrenal glands: Normal. Kidneys and ureters: Cortical cysts seen bilaterally, largest on the right side measuring 2.6 cm and largest on the left side measuring 2.1 cm. Some of these lesions are too small to characterize.No further workup is recommended. No hydronephrosis. Stomach and bowel: Diverticulosis changes of colon noted. Minimal mucosal edema of the stomach suspected. No obstruction. Mild wall thickening of hepatic flexure of the colon as well as ascending colon. Appendix: No evidence of appendicitis. Intraperitoneal space: Minimal nodular appearing peritoneum without a discrete mass. No free air. No significant fluid collection. Vasculature: No abdominal aortic aneurysm. Calcifications in aorta and iliac vessels. Lymph nodes: No enlarged lymph nodes. Urinary bladder: Chronic appearing mild wall thickening. Reproductive: Prostatomegaly. Bones/joints: No acute fracture. Prominent spondylotic changes. Chronic appearing mild compression deformities of lower thoracic vertebra. Soft tissues: 4.8 x 1.6 cm circumscribed soft tissue masslike density in right ventral abdominal wall involving skin and subcutaneous fat. CT/CT abdomen pelvis w con* [id number] IMPRESSION: 1. 2.2 x 2.3 x 2.3 cm mass in tail of the pancreas, suspicious for neoplasm. 2. Marked heterogeneous hypodense liver without a definite focal lesion. Severe hepatocellular dysfunction suspected. No biliary ductal dilatation identified. 3. Follow-up with MRI will be helpful to evaluate pancreatic lesion and liver. 4. Apparent minimal nodular appearing peritoneum without discrete mass. Artifactual versus neoplasm. 5. Mild mucosal thickening of stomach and minimal edema of ascending colon. 6. 4.8 x 1.6 cm circumscribed masslike lesion in skin and subcutaneous fat right anterior abdominal wall. Correlate clinically for benign lesion. If concern for neoplasm, consider biopsy.
[2023-07-13] MEDS: iohexol 350 mg/mL 500 mL Btl (per mL) IV (09:48)
[2023-07-13] MEDS: albuterol 2.5 mg/3 mL Neb INHALATION (11:01)
[2023-07-13] MEDS: dilTIAZem 60 mg Tablet PO ×2 (11:42→16:18)
--- NOTE | 2023-07-13 13:13 | P.PN_ITS ---
Subjective 2 Subjective: seen this morning rate controlled CT abdomen pelvis ordered: results discussed with patient he would like to pursue further imaging talked with MRI to see if tech is available today. Patient says he drinks alcohol every day and the last time he drank was on Saturday this week. He has decided not to drink anymore. Total bilirubin 4.1, magnesium 1.4 today, AST ALT elevated. Vitals/I&O/Wt Last Vital Signs Temp 98.3 F 07/13/23 03:00 Pulse 90 07/13/23 12:00 Resp 17 07/13/23 12:00 BP 118/63 07/13/23 12:00 Pulse Ox 94 07/13/23 12:00 O2 Del Method Room Air 07/13/23 11:01 07/12/23 07/13/23 07/13/23 22:59 06:59 14:59 Intake Total 599.7133 / 1610.0053 1100 / 2710.0053 545 / 545 Output Total 800 / 800 750 / 1550 750 / 750 Balance -200.2867 / 810.0053 350 / 1160.0053 -205 / -205 Weight last 48 hrs Weight 95.254 kg Weight 95.7 kg Weight 95.254 kg Physical Exam 2 Narrative: General: Alert oriented x3, patient seen sitting up in bed appearing comfortable. HEENT: Normocephalic, atraumatic, EOMI, breathing comfortably on room air. Cardio: irregularly irregular, normal S1-S2, no jvd elevation Respiratory: Clear to auscultation bilaterally. GI: Abdomen soft, nontender, nondistended, bowel sounds + Behavior: Appropriate and cooperative Extremities: NO edema ble Data 07/13/23 03:20 07/13/23 03:20 A&P Assessment and plan (1) Atrial fibrillation with rapid ventricular response: (2) Hypertension: (3) Heart failure: Plan #Atrial fibrillation with RVR #New onset congestive heart failure, unspecified #COPD, not in exacerbation #Hypertension #Hypokalemia #Pancreatic mass ? Patient presents with new onset A-fib with RVR on routine preop testing. ? Cardizem push given. Continue on Cardizem drip ? Check echocardiogram?pending ? I will give Lasix 20 IV x 1 ? BNP elevated 442 ? Stable from respiratory standpoint COPD not in exacerbation. Does not require use of oxygen ? Takes Advair as an outpatient ? Replete potassium. Keep potassium above 4 magnesium above 2 ? Recheck magnesium potassium in a.m. ? Stop Cardizem drip. Switch to 60 mg every 6 hours orally. ? [id number] score: 2. Patient is moderate high risk and should be a anticoagulation candidate. ? He says he has a back surgery coming up and would like to hold off on starting anticoagulation at this time in the hospital. ? He would like to discuss this with his primary care doctor as an outpatient. ? He will need a cardiology follow-up after discharge ? Denies any chest pain. Initial troponin 44, subsequent troponins pending at this time. - Check TSH, HBA1C, Lipid panel. Triglycerides 82, LDL 98, cholesterol 165, TSH 1.55, hemoglobin A1c 4.5 ? CT abdomen pelvis obtained today shows: 1. 2.2 x 2.3 x 2.3 cm mass in tail of the pancreas, suspicious for neoplasm. 2. Marked heterogeneous hypodense liver without a definite focal lesion. Severe hepatocellular dysfunction suspected. No biliary ductal dilatation identified. 3. Follow-up with MRI will be helpful to evaluate pancreatic lesion and liver. 4. Apparent minimal nodular appearing peritoneum without discrete mass. Artifactual versus neoplasm. 5. Mild mucosal thickening of stomach and minimal edema of ascending colon. 6. 4.8 x 1.6 cm circumscribed masslike lesion in skin and subcutaneous fat right anterior abdominal wall. Correlate clinically for benign lesion. If concern for neoplasm, consider biopsy. -MRI abdomen pelvis ordered. ? Check CA 19?9, CEA, AFP Transfer to floor Full code SCDs, heparin SQ twice daily Attestations 2 Medical Necessity Statement*: requires hospitalization for workup of pancreatic mass Diagnoses Atrial fibrillation with rapid ventricular response I48.91 Hypertension I10 Heart failure I50.9
--- NOTE | 2023-07-13 14:27 | PM.DCS ---
Discharge Providers Date of Admission: 07/12/23 14:28 Date of Discharge: July 13, 2023 Attending Provider at Admission: Viry Jones MD Attending Provider at Discharge: Viry Jones MD Primary Care Provider: Debora Garcia MD Diagnoses at Discharge Discharge Diagnosis (1) Atrial fibrillation with rapid ventricular response: Status: Acute (2) Hypertension: Status: Acute (3) Heart failure: Status: Acute Reason for Visit Reason for Visit: sent over by macie felix Hospital Course Hospital Course Patient was admitted for atrial fibrillation after being sent in by his primary care doctor. He was kept on a Cardizem drip and eventually converted to oral Cardizem once rate controlled. Echocardiogram was ordered however patient declined to have that done during hospital stay. During hospital stay LFTs were elevated along with bilirubin therefore CT abdomen pelvis was ordered which showed 2.2 x 2.3 x 2.3 cm mass in tail of the pancreas, suspicious for neoplasm. 2. Marked heterogeneous hypodense liver without a definite focal lesion. Severe hepatocellular dysfunction suspected. No biliary ductal dilatation identified. 3. Follow-up with MRI will be helpful to evaluate pancreatic lesion and liver. 4. Apparent minimal nodular appearing peritoneum without discrete mass. Artifactual versus neoplasm. 5. Mild mucosal thickening of stomach and minimal edema of ascending colon. 6. 4.8 x 1.6 cm circumscribed masslike lesion in skin and subcutaneous fat right anterior abdominal wall. Correlate clinically for benign lesion. If concern for neoplasm, consider biopsy. Also discussed with the patient an MRI for follow-up was recommended. Initially patient agreed to stay in the hospital to have MRI completed however later said he wanted to be discharged and wanted to do the workup as an outpatient. He also requested to have biopsy done as an outpatient. Patient really wanted to be discharged and wanted to go home and did not even want to wait for an echocardiogram that was a part of his workup with new onset congestive heart failure and atrial fibrillation. CHF is most likely secondary to A-fib with RVR. He was euvolemic at discharge. Patient was given prescription to do echo as an outpatient as per his request. CA 19?9, CEA, AFP were ordered at time of discharge. Patient was discharged home on diltiazem. Patient did get Lasix 20 x 1 in the ER and was euvolemic thereafter. Did not require any further Lasix. He was also noted to be chronically hypokalemic and with a history of hypertension warrants further workup for hyperaldosteronism. Patient however did not want to stay in the hospital for further management. All of the above was discussed with the patient in detail however at time of discharge he did not even wait for discharge instructions and left. He was given follow-up appointment with oncology, cardiology, gastroenterology as he will need a colonoscopy for further workup. Patient does have a laminectomy planned with Dr. De La Vega as outpatient and therefore Eliquis was not started in the hospital. Patient would like to defer that to start at a later time. He will however need anticoagulation as his [id number] score is 2 and this was discussed with the patient. At time the tag writer is writing this discharge summary it is noted that the CEA is 15.2 and CA 19?9 is 218. High suspicion for pancreatic cancer given results. Copy of discharge summary will be sent to patient's primary care doctor at the [facility]. I have provided him with a prescription to recheck CBC CMP and MRI outpatient. He has been given a 21-day event monitor prescription as well. Discharge Data Studies Completed and Pending Completed Studies During Hospitalization Category Date Time Status CT abdomen pelvis w con* [id number] Stat Cat Scan 07/13/23 09:28 Completed XR chest 1V portable [id number] Stat Exams 07/12/23 12:39 Completed Pending at discharge Category Date Time Status AFPTM [Tumor Marker Alpha Fetoprotein] Routine Lab 07/13/23 03:20 Received BMP [Basic Metabolic Panel] Routine Lab 07/13/23 16:23 Ordered Basic Metabolic Panel AM LABS Lab 07/14/23 04:00 Ordered CEA [Carcinoembryonic Antigen] Routine Lab 07/13/23 03:20 Received Cancer Antigen 19 9 Stat Lab 07/13/23 03:20 Received Complete Blood Count w/Auto AM LABS Lab 07/14/23 04:00 Ordered Magnesium AM LABS Lab 07/14/23 04:00 Ordered Urine Culture Stat Lab 07/12/23 22:14 Received MR abdomen wo/w con* [id number] Routine MRI 07/13/23 13:25 Ordered US abdomen complete* [id number] Routine Ultrasound 07/13/23 06:00 Ordered Radiology Impressions Abdomen/Pelvis CT 07/13/23 09:28 IMPRESSION: 1. 2.2 x 2.3 x 2.3 cm mass in tail of the pancreas, suspicious for neoplasm. 2. Marked heterogeneous hypodense liver without a definite focal lesion. Severe hepatocellular dysfunction suspected. No biliary ductal dilatation identified. 3. Follow-up with MRI will be helpful to evaluate pancreatic lesion and liver. 4. Apparent minimal nodular appearing peritoneum without discrete mass. Artifactual versus neoplasm. 5. Mild mucosal thickening of stomach and minimal edema of ascending colon. 6. 4.8 x 1.6 cm circumscribed masslike lesion in skin and subcutaneous fat right anterior abdominal wall. Correlate clinically for benign lesion. If concern for neoplasm, consider biopsy. Laboratory Results WBC 10.13 10^3/uL (3.29-11.43) 07/13/23 03:20 RBC 4.04 10^6/uL (3.85-5.65) 07/13/23 03:20 Hgb 13.10 g/dL (11.27-16.99) 07/13/23 03:20 Hct 38.3 % (37-53) 07/13/23 03:20 MCV 94.8 fl (82-101) 07/13/23 03:20 MCH 32.4 pg (27-33) 07/13/23 03:20 MCHC 34.2 g/dL (30-55) 07/13/23 03:20 RDW 16.5 % (12.1-15.1) H 07/13/23 03:20 Plt Count 108 10^3/cmm (157-399) L 07/13/23 03:20 MPV 12.3 fL (7.4-10.4) H 07/13/23 03:20 Neut % (Auto) 61.2 % 07/13/23 03:20 Lymph % (Auto) 24.1 % 07/13/23 03:20 [place] % (Auto) 9.4 % 07/13/23 03:20 Eos % (Auto) 3.9 % 07/13/23 03:20 Baso % (Auto) 0.9 % 07/13/23 03:20 Neut # (Auto) 6.20 10^3/uL (1.8-7.7) 07/13/23 03:20 Lymph # (Auto) 2.4 10^3/uL (0.8-4.8) 07/13/23 03:20 [place] # (Auto) 1.0 10^3/uL (0.2-0.9) H 07/13/23 03:20 Eos # (Auto) 0.4 10^3/uL (0.0-0.8) 07/13/23 03:20 Baso # (Auto) 0.1 10^3/uL (0.0-0.1) 07/13/23 03:20 Nucleated RBC % (auto) 0 % 07/13/23 03:20 Nucleated RBCs # 0.0 /100WBC 07/13/23 03:20 PT 15.50 SECONDS (12.1-14.9) H 07/12/23 12:46 INR 1.19 (0.8-1.2) 07/12/23 12:46 APTT 27.6 SECONDS (23.9-36.7) 07/12/23 12:46 Sodium 139 mmol/L (136-145) 07/13/23 03:20 Potassium 2.6 mmol/L (3.5-5.1) L* 07/13/23 03:20 Chloride 100 mmol/L (98-107) 07/13/23 03:20 Carbon Dioxide 26 mmol/L (22-29) 07/13/23 03:20 Anion Gap 15.6 (5-19) 07/13/23 03:20 BUN 9 mg/dL (8-23) 07/13/23 03:20 Creatinine 0.8 mg/dL (0.7-1.2) 07/13/23 03:20 GFR Calculation 97.0 mL/min (90-130) 07/13/23 03:20 Glucose 99 mg/dL (65-115) 07/13/23 03:20 Estimat Average Glucose 82 07/12/23 12:46 Hemoglobin A1c 4.5 % (4.0-6.0) 07/12/23 12:46 Calculated Osmolality 287 mOsm/kg (285-295) 07/13/23 03:20 Calcium 8.1 mg/dL (8.5-10.5) L 07/13/23 03:20 Magnesium 1.4 mg/dL (1.7-2.3) L 07/13/23 03:20 Total Bilirubin 4.1 mg/dL (0.15-1.2) H 07/13/23 03:20 AST 72 U/L (0-40) H 07/13/23 03:20 ALT 43 U/L (0-41) H 07/13/23 03:20 Alkaline Phosphatase 219 U/L (40-130) H 07/13/23 03:20 Troponin T Baseline 41 ng/L (0-15) H 07/12/23 13:19 Troponin T 120 Minute 36.42 ng/L (0-15) H 07/12/23 15:34 Delta Troponin T -4.58 ABS# (0-10) L 07/12/23 15:34 Troponin T Hi Sens 6Hr 33.99 ng/L (0-15) H 07/12/23 19:39 Troponin T Hi Sens 6Hr Delta -7.01 ng/L (0-12) L 07/12/23 19:39 NT-Pro-B Natriuret Pep 442 pg/mL (0-125) H 07/12/23 13:19 Total Protein 5.6 g/dL (6.6-8.7) L 07/13/23 03:20 Albumin 2.9 g/dL (3.5-5.2) L 07/13/23 03:20 Globulin 2.7 g/dL (1.3-4.6) 07/13/23 03:20 Triglycerides 82 mg/dL (0-150) 07/12/23 17:17 Cholesterol 165 mg/dL (0-200) 07/12/23 17:17 LDL Cholesterol, Calc 98 mg/dL (50-129) 07/12/23 17:17 Total VLDL Cholesterol 16 mg/dL (0-30) 07/12/23 17:17 HDL Cholesterol 51 mg/dL (60-100) L 07/12/23 17:17 Cholesterol/HDL Ratio 3.24 mg/dL (1.0-5.00) 07/12/23 17:17 TSH 1.55 uIU/mL (0.27-4.20) 07/12/23 12:46 Urine Color [place] (Yellow) 07/12/23 22:14 Urine Appearance Clear (CLEAR) 07/12/23 22:14 Urine pH 7 (5-7) 07/12/23 22:14 Ur Specific [place] 1.000 (1.005-1.030) L 07/12/23 22:14 Urine Protein Neg (Negative) 07/12/23 22:14 Urine Glucose (UA) Norm (Normal) 07/12/23 22:14 Urine Ketones Negative (Negative) 07/12/23 22:14 Urine Blood 2+ (Negative) H 07/12/23 22:14 Urine Nitrate Negative (Negative) 07/12/23 22:14 Urine Bilirubin 1+ (Negative) H 07/12/23 22:14 Urine Urobilinogen 4 mg/dL (Negative) H 07/12/23 22:14 Ur Leukocyte Esterase 1+ (Negative) H 07/12/23 22:14 Urine RBC 5-10 /hpf (0-2) H 07/12/23 22:14 Urine WBC 5-10 /hpf (0-5) H 07/12/23 22:14 Ur Squamous Epith Cells 0-4 /hpf (0-5) H 07/12/23 22:14 Calcium Oxalate Crystal 0-4 /hpf H 07/12/23 22:14 Amorphous Sediment Not Reportable 07/12/23 22:14 Urine Bacteria 1+ /hpf (NONE) H 07/12/23 22:14 Urine Opiates Screen Negative ng/mL (Negative) 07/12/23 22:14 Ur Barbiturates Screen Negative ng/mL (Negative) 07/12/23 22:14 Ur Phencyclidine Scrn Negative ng/mL (Negative) 07/12/23 22:14 Ur Amphetamines Screen Negative ng/mL (Negative) 07/12/23 22:14 U Benzodiazepines Scrn Negative ng/mL (Negative) 07/12/23 22:14 Urine Cocaine Screen Negative ng/mL (Negative) 07/12/23 22:14 U Marijuana (THC) Screen Negative ng/mL (Negative) 07/12/23 22:14 Ethyl Alcohol < 10 mg/dL (0-10) 07/12/23 13:19 Vitals Last Vital Signs Temp 98.3 F 07/13/23 03:00 Pulse 90 07/13/23 12:00 Resp 17 07/13/23 12:00 BP 118/63 07/13/23 12:00 Pulse Ox 94 07/13/23 12:00 O2 Del Method Room Air 07/13/23 11:01 Discharge Plan Discharge Patient Disposition: Home Condition: Stable Prescriptions: New diltiazem HCl 240 mg capsule,extended release 24 hr 240 mg PO DAILY Qty: 30 0RF Continued metoclopramide HCl 5 mg tablet 5 mg PO DAILY cholecalciferol (vitamin D3) 25 mcg (1,000 unit) capsule 25 mcg PO DAILY calcipotriene 0.005 % ointment 1 applic topical BID Qty: 120 2RF Rx Instructions: rub in gently and completely to affected areas on the lower extremities atorvastatin 40 mg tablet 40 mg PO DAILY fluticasone propion-salmeterol [Wixela Inhub] 250-50 mcg/dose blister with device 1 inh inhalation BID gabapentin 300 mg capsule 300 mg PO TID Qty: 90 3RF potassium chloride 10 mEq Tablet Extended Release 10 meq PO DAILY Qty: 30 0RF Discontinued hydrochlorothiazide 12.5 mg capsule 12.5 mg PO DAILY amlodipine 10 mg tablet 10 mg PO DAILY Discharge Orders: Discharge Order (Routine); Ordered 07/13/23 Ordered By: Viry Jones Other Ambulatory Orders: MR abdomen wo/w con* [id number] (Routine) Timeframe: 1 Day Facility: [facility] - Location: Radiology [place] [facility] Ordered By: Viry Jones Complete Blood Count w/Auto (Routine) Timeframe: 3 Days Location: Determined by Patient Ordered By: Viry Jones Comprehensive Metabolic Panel (Routine) Timeframe: 3 Days Facility: [facility] - Location: Lab - Main Lab Ordered By: Viry Jones MCT/Event Monitor 21 Days (Routine) Timeframe: 1 Day Facility: [facility] - Location: Radiology Ordered By: Viry Jones Referrals: Enrrique Hollingsworth [Other] - 1-3 days (Please call on Saturday to set up an appointment to be seen in 1-3 days ) Debora Garcia MD [Primary Care Provider] - 1-3 days (lease call on Saturday to set up an appointment to be seen within 1-3 days.P) Johanna Luque FNP [Nurse Practitioner] - 7-10 days ([facility] and should contact you on Saturday. In the event you do not hear form them for a f/u appt, please call them on Saturday to set up an appt.) Mitch Callahan MD [Hospitalist] - 4-7 days (A message has been sent to Dr. Callahan's office to set up an appointment to be seen. If you do not hear form them by Saturday, please call Saturday to set up an appointment.) Discharge Diet: Cardiac Discharge Activity: Resume usual activity Patient Instructions: Diltiazem (By mouth), A-fib (Atrial Fibrillation) (DC), Hypokalemia (DC), Opioid Safety Activity Restrictions/Additional Instructions: You will need outpatient follow-up for your pancreatic mass. As discussed you will need further imaging with MRI and a biopsy for diagnosis. Initial labs have been obtained during your hospitalization. Please follow-up with your primary care doctor for further workup as per your request. Also discussed with your primary care doctor regarding starting anticoagulation for your atrial fibrillation. If you have worsening abdominal pain, chest pain, nausea vomiting please return back to the hospital. Follow-up with your primary care doctor regarding results of the echocardiogram obtained in the hospital. You will need follow up with gasteroentology as well. Please ensure you have lab work done as directed. Please follow-up with your primary care doctor at your earliest convenience. Discharge Attestations Time Spent in Discharge Care*: greater than 30 min Quality Metrics Clinical Quality Measures [ No reported AMI, CVA or VTE this stay] Coding Level of Care Code 67256 Total time (in minutes) for Discharge: 45 Diagnoses Atrial fibrillation with rapid ventricular response I48.91 Hypertension I10 Heart failure I50.9
[2023-07-13 14:29] LABS: Cancer Antigen 19 9 218.7 U/mL (0-35); Carcinoembryonic Antigen 15.2 ng/mL (0.0-4.7); Tumor Marker Alpha Fetoprotein 3.4 ng/mL (0-8.3)
[2023-07-13] MEDS: potassium chloride ER 20 mEq Tablet 40 MEQ PO (16:18)
--- NOTE | 2023-07-13 16:49 | PC.NURSE ---
Discharge Note Patient discharged to [home] via [w/c to POV] accompanied by [friend]. Discharge instructions were not reviewed with patient and/or service liaison representative as the pt was upset and ready to go [place]. Informed pt that there was a lot of important information contained in the packet and that he needs to set up some appointments as it is the weekend and we are not able to set them up at this time. Pt stated understanding. Mobile pharmacy medications and/or prescriptions provided. Belongings/home medications returned.
== END 2023-07-13 16:45 | disposition home or self-care (01) | DRG 310 ==
LOC: ER 14:27 → ER IP 15:40 → ICU 17:26
PROVIDERS: Admitting Provider Internal Medicine; Emergency Provider Emergency Medicine; PCP Family Medicine; Visit Provider Internal Medicine
DX: I48.91 Unspecified atrial fibrillation (principal); I11.0 Hypertensive heart disease with heart failure; I50.9 Heart failure, unspecified; J44.9 Chronic obstructive pulmonary disease, unspecified; G62.9 Polyneuropathy, unspecified; E87.6 Hypokalemia; F10.90 Alcohol use, unspecified, uncomplicated; K86.9 Disease of pancreas, unspecified; R97.0 Elevated carcinoembryonic antigen [CEA]; R97.8 Other abnormal tumor markers; Z87.891 Personal history of nicotine dependence
CPT/HCPCS: 36415; 71045; 74177; 80048; 80053; 80061; 80306; 80307; 81001; 82105; 82378; 83036; 83735; 83880; 84443; 84484; 85025; 85610; 85730; 86301; 87077; 87086; 87186; 93005; 94640; 96365; 96366; 96375; 96376; 99285; J1940; J2405; J3475; J3480; J3490; J7030; J7613; J7626; Q9967

== ENCOUNTER 2023-08-21 11:59 | Oncology outpatient (recurring) (ONCR) | payer OTHER, SELFPAY ==
[2023-08-21 13:25] LABS: Basophils # 0.1 10^3/uL (0.0-0.1); Basophils % 0.8 %; Eosinophils # 0.2 10^3/uL (0.0-0.8); Eosinophils % 2.3 %; Hematocrit 42.5 % (37-53); Lymphocytes # 1.7 10^3/uL (0.8-4.8); Lymphocytes % 19.6 %; Mean Corpuscular HGB Conc 33.4 g/dL (30-55); Mean Corpuscular Hemoglobin 33.3 pg (27-33); Mean Corpuscular Volume 99.5 fl (82-101); Mean Platelet Volume 11.1 fL (7.4-10.4); Monocytes # 0.9 10^3/uL (0.2-0.9); Monocytes % 9.7 %; Neutrophils # 5.89 10^3/uL (1.8-7.7); Neutrophils % 67.1 %; Nucleated Red Blood Cells % 0 %; Platelet Count 160 10^3/cmm (157-399); Red Blood Count 4.27 10^6/uL (3.85-5.65); Red Cell Distribution Width 15.4 % (12.1-15.1); White Blood Count 8.77 10^3/uL (3.29-11.43)
[2023-08-21 13:51] LABS: Carcinoembryonic Antigen 20.3 ng/mL (0.0-4.7)
[2023-08-21 14:02] LABS: Alanine Aminotransferase 32 U/L (0-41); Albumin Level 3.1 g/dL (3.5-5.2); Alkaline Phosphatase 312 U/L (40-130); Anion Gap 15.9 (5-19); Aspartate Amino Transferase 68 U/L (0-40); Blood Urea Nitrogen 10 mg/dL (8-23); Calcium 8.7 mg/dL (8.5-10.5); Carbon Dioxide 22 mmol/L (22-29); Chloride 102 mmol/L (98-107); Creatinine Clr Calc Pharmacy 126.3969; Globulin 3.3 g/dL (1.3-4.6); Glomerular Filtration Rate 113.2 mL/min (90-130); Glucose 113 mg/dL (65-115); Osmolality Calculated 282 mOsm/kg (285-295); Potassium 3.9 mmol/L (3.5-5.1); Sodium 136 mmol/L (136-145); Total Bilirubin 4.2 mg/dL (0.15-1.2); Total Protein 6.4 g/dL (6.6-8.7)
[2023-08-21 14:32] LABS: Cancer Antigen 19 9 240.9 U/mL (0-35)
== END 2023-09-10 23:59 | disposition home or self-care (01) ==
PROVIDERS: PCP Family Medicine; Visit Provider Internal Medicine Medical Oncology
DX: K86.89 Other specified diseases of pancreas (principal); Z79.899 Other long term (current) drug therapy
CPT/HCPCS: 36415; 80053; 82378; 85025; 86301; 99205

== ENCOUNTER → 2023-08-28 09:48 | Outpatient (BNVA) | payer OTHER, SELFPAY | PROVIDERS: PCP Family Medicine; Visit Provider Anesthesiology Pain Medicine | DX: K86.89 Other specified diseases of pancreas (principal); M43.16 Spondylolisthesis, lumbar region; M48.061 Spinal stenosis, lumbar region without neurogenic claudication; M47.816 Spondylosis without myelopathy or radiculopathy, lumbar region; M48.02 Spinal stenosis, cervical region | CPT/HCPCS: 99215 ==

== ENCOUNTER 2023-09-20 11:58 | Emergency (ER) | payer OTHER, SELFPAY ==
[2023-09-20 12:00] VITALS: PULSE 110; RESP 18; TEMP 36.4; O2SAT 97; BMI 26.3
--- NOTE | 2023-09-20 13:13 | XR_ITS ---
WS: [id number] Portable AP upright chest, 09/20/2023 Clinical Data: edema Comparison: Portable chest, 07/12/2023 Findings: No nodules, masses or effusions are seen. The heart is normal. The pulmonary vascularity is not increased. No pneumonia or pneumothorax is seen. The aortic arch and descending thoracic aorta s how mild tortuosity. There is a lower anterior cervical disc fusion. XR/XR chest 1V portable [id number] Impression: Atherosclerosis.
[2023-09-20 13:14] VITALS: BP 133/69; PULSE 111; O2SAT 97
--- NOTE | 2023-09-20 13:15 | USCV_ITS ---
Jose Mosley Age: 67 Gender: M : 1955 Exam Date: 09/20/2023 13:42 Ordering Phys: Solomon Villeda MD Technologist: FRANCESCO Exam Location: [facility] [place] Indication: RLE PAIN AND SWELLING HISTORY: Lower extremity swelling. Lower extremity pain. PROCEDURES: Venous duplex imaging was performed in only the right lower extremity. The following venous structures were evaluated: common femoral vein, profunda vein, proximal portion of the greater saphenous vein, superficial femoral vein, and the popliteal vein. In addition, the posterior tibial and peroneal trunk were evaluated. Serial compression, augmentation maneuvers, and spectral Doppler flow evaluation were performed. FINDINGS: No evidence of DVT seen in any vessel visualized at this time. Edema seen in Right lower leg CONCLUSIONS No evidence of right lower extremity DVT. Patel Carrillo MD (Electronically Signed) Final Date: 20 Sep 2023 16:05 S
--- NOTE | 2023-09-20 13:16 | W.ED.EXTPRO ---
HPI - Extremity Problem General: Chief complaint: Extremity Problem,Nontraumatic Stated complaint: Lower leg edema Time Seen by Provider: 09/20/23 13:13 Source: patient Mode of arrival: ambulatory Limitations: no limitations History of Present Illness: 67-year-old male states he is recently diagnosed with a pancreatic mass with possible pancreatic cancer. He states that he has had increased swelling mainly to his right leg is occurred over the last week he has had a open sore as well along with some erythema he has pain in that leg as well he rates a 4 out of 10. Denies any fevers denies any shortness of breath. Denies any injuries Associated symptoms: Deny chest pain, fever(s) or rash Review of Systems Const: Denies: fever(s), chills, body aches or change in appetite ENMT: Denies: throat pain or dental pain Card: Denies: chest pain Resp: Denies: dyspnea GI: Denies: abdominal pain, nausea, vomiting or diarrhea Musc: Reports: extremity pain and extremity swelling; Denies: neck pain or back pain Skin/Breast: Reports: erythema; Denies: rash Neuro: Denies: headache(s) PFSH ED PFSH: Medical History Psoriasis Degenerative joint disease of spine Congestive heart failure Atrial fibrillation Peripheral neuropathy Ulnar nerve neuropathy History of ganglion cyst removal Hypertension COPD (chronic obstructive pulmonary disease) Surgical History History of surgical removal of ganglion cyst Right wrist Hx of colonoscopy History of cervical spinal surgery History of decompression of ulnar nerve History of surgery external 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 Second hand smoke exposure: No Alcohol intake: current Alcohol intake frequency: few times a week Substance/Drug Use: never Lives independently: Yes Physical Exam Const: COMMON NORMALS: no acute distress, patient oriented x3 and healthy appearing HENMT: COMMON NORMALS: normocephalic and atraumatic HEAD & SCALP: normocephalic and atraumatic Neck/C-Spine: COMMON NORMALS: full ROM and supple Chest: COMMONS NORMALS: normal inspection of the chest Resp: COMMON NORMALS: normal respiratory effort Cardio: COMMON NORMALS: regular rate, regular rhythm and No murmurs present (Cardio) RATE: regular rate RHYTHM: regular rhythm GI: COMMON NORMALS: Normal to inspection, nondistended, normoactive bowel sounds present, Soft to palpation, non-tender and no masses PALPATION: Yes Soft to palpation Extremity: COMMON NORMALS: full ROM NARRATIVE EXTREMITY EXAM: Swelling noted to right leg with erythema redness to touch as well distal pulses intact Neuro: COMMON NORMALS: patient oriented x3, moves all extremities and no focal motor deficits Psych: COMMON NORMALS: mental status grossly normal, Normal thought process present and cooperative THOUGHT PROCESS: Normal thought process present Skin: COMMON NORMALS: no rashes or lesions noted and no wounds GENERAL SKIN EXAM: no rashes or lesions noted Course Vital Signs: Vital signs: Vital Signs Temperature 97.6 F 09/20/23 12:00 Pulse Rate 111 H 09/20/23 13:14 Respiratory Rate 18 09/20/23 12:00 Blood Pressure 133/69 09/20/23 13:14 Pulse Oximetry 97 09/20/23 13:14 Oxygen Delivery Me thod Room Air 09/20/23 13:14 MDM - Extremity (Nontraumatic) Medical Decision Making Patient presents here with cellulitis to right leg with some slight swelling no signs of DVT also has some hypokalemia we will place him on Keflex at home along with potassium he is follow-up with PCP and 3 to 5 days and return if worsening. Medical Records I reviewed the patient's medical records. Lab Data I reviewed the patient's lab results. 09/20/23 13:11 09/20/23 13:11 Radiology Impressions Chest X-Ray 09/20/23 13:13 Impression: Atherosclerosis. Laboratory Results WBC 11.64 10^3/uL (3.29-11.43) H 09/20/23 13:11 RBC 4.74 10^6/uL (3.85-5.65) 09/20/23 13:11 Hgb 14.90 g/dL (11.27-16.99) 09/20/23 13:11 Hct 44.3 % (37-53) 09/20/23 13:11 MCV 93.5 fl (82-101) 09/20/23 13:11 MCH 31.4 pg (27-33) 09/20/23 13:11 MCHC 33.6 g/dL (30-55) 09/20/23 13:11 RDW 12.9 % (12.1-15.1) 09/20/23 13:11 Plt Count 264 10^3/cmm (157-399) 09/20/23 13:11 MPV 10.4 fL (7.4-10.4) 09/20/23 13:11 Neut % (Auto) 68.0 % 09/20/23 13:11 Lymph % (Auto) 19.6 % 09/20/23 13:11 [place] % (Auto) 9.3 % 09/20/23 13:11 Eos % (Auto) 1.6 % 09/20/23 13:11 Baso % (Auto) 0.8 % 09/20/23 13:11 Neut # (Auto) 7.92 10^3/uL (1.8-7.7) H 09/20/23 13:11 Lymph # (Auto) 2.3 10^3/uL (0.8-4.8) 09/20/23 13:11 [place] # (Auto) 1.1 10^3/uL (0.2-0.9) H 09/20/23 13:11 Eos # (Auto) 0.2 10^3/uL (0.0-0.8) 09/20/23 13:11 Baso # (Auto) 0.1 10^3/uL (0.0-0.1) 09/20/23 13:11 Nucleated RBC % (auto) 0 % 09/20/23 13:11 Nucleated RBCs # 0.0 /100WBC 09/20/23 13:11 Sodium 134 mmol/L (136-145) L 09/20/23 13:11 Potassium 2.9 mmol/L (3.5-5.1) L 09/20/23 13:11 Chloride 98 mmol/L (98-107) 09/20/23 13:11 Carbon Dioxide 23 mmol/L (22-29) 09/20/23 13:11 Anion Gap 15.9 (5-19) 09/20/23 13:11 BUN 9 mg/dL (8-23) 09/20/23 13:11 Creatinine 0.9 mg/dL (0.7-1.2) 09/20/23 13:11 GFR Calculation 84.7 mL/min (90-130) L 09/20/23 13:11 Glucose 125 mg/dL (65-115) H 09/20/23 13:11 Calculated Osmolality 278 mOsm/kg (285-295) L 09/20/23 13:11 Calcium 8.8 mg/dL (8.5-10.5) 09/20/23 13:11 Total Bilirubin 3.3 mg/dL (0.15-1.2) H 09/20/23 13:11 AST 54 U/L (0-40) H 09/20/23 13:11 ALT 21 U/L (0-41) 09/20/23 13:11 Alkaline Phosphatase 244 U/L (40-130) H 09/20/23 13:11 NT-Pro-B Natriuret Pep 348 pg/mL (0-125) H 09/20/23 13:11 Total Protein 6.9 g/dL (6.6-8.7) 09/20/23 13:11 Albumin 2.8 g/dL (3.5-5.2) L 09/20/23 13:11 Globulin 4.1 g/dL (1.3-4.6) 09/20/23 13:11 All radiology interpretation(s) finalized by discharge EKG Data EKG 1: I personally reviewed and interpreted this EKG as follows: EKG interpretation date: 09/20/23 EKG interpretation time: 13:25 Interpretation: afib hr [address] or t wave abnormalities qrs 99 qtc 420 Discharge Plan Discharge Patient Disposition: Home Clinical Impression: Hypokalemia Cellulitis Qualifiers: Site of cellulitis: extremity Site of cellulitis of extremity: lower extremity Laterality: right Qualified Code(s): L03.115 - Cellulitis of right lower limb Condition: Stable Prescriptions: New cephalexin 500 mg capsule 500 mg PO TID 7 Days Qty: 21 0RF potassium chloride 20 mEq tablet extended release 20 meq PO BID Qty: 10 0RF No Action cholecalciferol (vitamin D3) 25 mcg (1,000 unit) capsule 25 mcg PO DAILY calcipotriene 0.005 % ointment 1 applic topical BID Qty: 120 2RF Rx Instructions: rub in gently and completely to affected areas on the lower extremities atorvastatin 40 mg tablet 40 mg PO DAILY fluticasone propion-salmeterol [Wixela Inhub] 250-50 mcg/dose blister with device 1 inh inhalation BID gabapentin 300 mg capsule 300 mg PO TID Qty: 90 3RF tramadol 50 mg tablet 50 mg PO BID PRN (Reason: pain related to cancer and spine) Qty: 15 0RF Rx Instructions: Not to be taken with alcohol other opioids or benzodiazepines. diltiazem HCl 240 mg capsule,extended release 24 hr 240 mg PO DAILY Qty: 30 0RF potassium chloride 10 mEq Tablet Extended Release 10 meq PO DAILY Qty: 30 0RF Discharge Orders: Discharge ED (Routine); Ordered 09/20/23 Ordered By: Solomon Villeda Referrals: Debora Garcia MD [Primary Care Provider] - 4-7 days Discharge Diet: Advance as tolerated Discharge Activity: Resume usual activity Patient Instructions: Cellulitis (ED) Coding Level of Care Code ED Videogame Tester for Alex Ruffin
--- NOTE | 2023-09-20 13:25 | ECG_ITS ---
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 Measurements Intervals [place] Rate: 86 P: 0 [place]: 0 QRS: -13 QRSD: 99 T: 75 QT: 376 QTc: 451 Interpretive Statements ATRIAL FIBRILLATION ANTEROSEPTAL MYOCARDIAL INFARCTION , PROBABLY OLD [40+ ms Q WAVE IN V1-V4] Compared to ECG 07/12/2023 21:16:46 Myocardial infarct finding now present T-wave abnormality no longer present Electronically Signed On 09-20-2023 14:48:17 CDT by Pavan Mckinley M.D. [id number]
[2023-09-20 13:29] LABS: Basophils # 0.1 10^3/uL (0.0-0.1); Basophils % 0.8 %; Eosinophils # 0.2 10^3/uL (0.0-0.8); Eosinophils % 1.6 %; Hematocrit 44.3 % (37-53); Lymphocytes # 2.3 10^3/uL (0.8-4.8); Lymphocytes % 19.6 %; Mean Corpuscular HGB Conc 33.6 g/dL (30-55); Mean Corpuscular Hemoglobin 31.4 pg (27-33); Mean Corpuscular Volume 93.5 fl (82-101); Mean Platelet Volume 10.4 fL (7.4-10.4); Monocytes # 1.1 10^3/uL (0.2-0.9); Monocytes % 9.3 %; Neutrophils # 7.92 10^3/uL (1.8-7.7); Nucleated Red Blood Cells % 0 %; Platelet Count 264 10^3/cmm (157-399); Red Blood Count 4.74 10^6/uL (3.85-5.65); Red Cell Distribution Width 12.9 % (12.1-15.1); White Blood Count 11.64 10^3/uL (3.29-11.43)
[2023-09-20 13:59] LABS: Alanine Aminotransferase 21 U/L (0-41); Albumin Level 2.8 g/dL (3.5-5.2); Alkaline Phosphatase 244 U/L (40-130); Anion Gap 15.9 (5-19); Aspartate Amino Transferase 54 U/L (0-40); Blood Urea Nitrogen 9 mg/dL (8-23); Calcium 8.8 mg/dL (8.5-10.5); Carbon Dioxide 23 mmol/L (22-29); Chloride 98 mmol/L (98-107); Creatinine Clr Calc Pharmacy 108.4944; Globulin 4.1 g/dL (1.3-4.6); Glomerular Filtration Rate 84.7 mL/min (90-130); Glucose 125 mg/dL (65-115); NT Pro B Type Natriuretic Pept 348 pg/mL (0-125); Osmolality Calculated 278 mOsm/kg (285-295); Sodium 134 mmol/L (136-145); Total Bilirubin 3.3 mg/dL (0.15-1.2); Total Protein 6.9 g/dL (6.6-8.7)
[2023-09-20 14:05] LABS: Potassium 2.9 mmol/L (3.5-5.1)
--- NOTE | 2023-09-20 14:06 | PC.PHAR ---
PT IS [facility] FOR MED LIST 2:06PM 09/20/23
[2023-09-20 14:11] VITALS: PULSE 109; O2SAT 98
[2023-09-20] MEDS: potassium chloride ER 20 mEq Tablet 40 MEQ PO (14:30)
[2023-09-20] MEDS: FUROsemide 10 mg/mL SDV 10mL 60 MG IVP (14:31)
[2023-09-20] MEDS: cefTRIAXone 1,000 MG in sodium chloride 0.9% (plus) 50 ML 100 MG IV (14:32)
[2023-09-20 15:00] VITALS: BP 133/69; PULSE 109; RESP 18; TEMP 36.4; O2SAT 98
== END 2023-09-20 15:03 | disposition home or self-care (01) ==
PROVIDERS: Emergency Provider Emergency Medicine; PCP Family Medicine
DX: E87.6 Hypokalemia (principal); L03.115 Cellulitis of right lower limb; Z87.891 Personal history of nicotine dependence; I11.0 Hypertensive heart disease with heart failure; I50.9 Heart failure, unspecified; J44.9 Chronic obstructive pulmonary disease, unspecified
CPT/HCPCS: 36415; 71045; 80053; 83880; 85025; 93005; 93971; 96365; 96375; 99285; J0696; J1940

== ENCOUNTER → 2023-09-25 10:48 | Outpatient (BNVA) | payer OTHER, MEDICARE, SELFPAY | PROVIDERS: PCP Family Medicine; Visit Provider Anesthesiology Pain Medicine | DX: S81.801A Unspecified open wound, right lower leg, initial encounter (principal); M54.2 Cervicalgia; M43.16 Spondylolisthesis, lumbar region; K86.89 Other specified diseases of pancreas; X58.XXXA Exposure to other specified factors, initial encounter; M48.061 Spinal stenosis, lumbar region without neurogenic claudication | CPT/HCPCS: 99215 ==

== ENCOUNTER 2023-10-02 12:30 | Oncology outpatient (recurring) (ONCR) | payer OTHER, SELFPAY ==
--- NOTE | 2023-09-17 13:30 | PETR_ITS ---
PROCEDURE INFORMATION: Exam: PET/CT Skull Base to Mid-thigh Exam date and time: 09/17/2023 1:30 PM Age: 67 years old Clinical indication: Abnormal findings; 1. 2.2 x 2.3 x 2.3 cm mass in tail of the pancreas, suspicious for neoplasm. 2. Marked heterogeneous hypodense liver without a definite focal lesion. Severe hepatocellular dysfunction suspected. No biliary ductal dilatation. Identified. CT 07/13/23; Additional info: Pancreatic mass LABS AND CLINICAL REPORTS: Glucose: 86 mg/dl Treatment strategy for malignancy (PET staging): Initial Staging (PI) TECHNIQUE: Imaging protocol: Following at least four-hour fasting and following the injection of radiopharmaceutical, low dose CT images were obtained. Then, PET images were obtained. Attenuation corrected images were constructed using the CT scan. Fused images of PET and CT were reviewed. The standardized uptake values (SUV) reported below are maximum values within a region of interest, expressed in gm/ml. Exam includes orbital meatal line to mid-thigh. Radiopharmaceutical: 12.03 mCi F-18 FDG (Fluorodeoxyglucose), IV. Time of imaging post radiopharmaceutical administration: 1 hour Injection site: Left hand COMPARISON: CT abdomen pelvis w con* [id number] 07/13/2023 9:40 AM FINDINGS: Brain: Visualized brain has normal physiologic uptake. Pharynx: No abnormal uptake. Larynx: No abnormal uptake. Lungs, pleura and trachea: No abnormal uptake. Mild upper lung predominant paraseptal emphysematous change. Small left pleural effusion. Heart: Normal physiologic uptake. Coronary arteries: Moderate to heavy coronary artery calcification. Mediastinal space: No abnormal uptake. Liver: No abnormal uptake. No focal CT abnormality visualized. Gallbladder and bile ducts: No abnormal uptake. Cholelithiasis. Pancreas: Ill-defined soft tissue fullness at the pancreatic tail with SUV max measuring 3.[address] finding of concern. Spleen: No abnormal uptake. Adrenal glands: No abnormal uptake. Kidneys and ureters: Normal physiologic uptake. Bilateral renal cysts. Stomach and bowel: No abnormal uptake. Colonic diverticulosis. Intraperitoneal and retroperitoneal spaces: Developed moderate fluid density ascites. Vasculature: No abnormal uptake. Moderate to heavy systemic atherosclerotic calcification. Lymph nodes: Asymmetrically prominent right inguinal lymph node measures 1.2 cm in the short axis on axial image 275 of series 3 and shows low-level FDG uptake with SUV max 1.5. Otherwise no lymphadenopathy in the head, neck, chest, abdomen, pelvis, and extremities. Bones/joints: Mild FDG uptake about the left glenohumeral joint/rotator cuff with small calcification anteriorly is likely inflammatory. Otherwise no abnormal uptake in the visualized axial and appendicular skeleton. Chronic fracture deformities of multiple bilateral ribs. Degenerative changes along the spine. Small nonaggressive lucency redemonstrated at the left ilium adjacent to the sacroiliac joint. Soft tissues: No abnormal uptake in the visualized head, neck, chest, abdomen, pelvis, and extremities. Redemonstrated anterior right upper abdominal wall 4.5 x 1.6 cm subcutaneous parallel focus with broad dermal interface. Small fat containing umbilical and bilateral inguinal hernias now containing small amount of fluid in the umbilical and right inguinal hernia. Asymmetric sntey-xvpqerk-fqsk-left upper thigh subcutaneous edema. PET/PET [facility] INITIAL [id number] IMPRESSION: 1. Ill-defined soft tissue fullness at the pancreatic tail with associated FDG uptake corresponding to comparison CT abnormality suspicious for malignancy. 2. Developed moderate to large volume ascites and small left pleural effusion. 3. Asymmetrically prominent right inguinal lymph node favored to be reactive in the setting of asymmetric pnwdt-lyyxyqh-daai-left thigh edematous soft tissue swelling. 4. Cholelithiasis. 5. Atherosclerosis with moderate to heavy coronary artery calcification. 6. 4.5 cm long anterior right upper abdominal wall subcutaneous lesion without FDG uptake. Correlate with clinical exam. 7. Additional chronic and incidental findings as above, to include colonic diverticulosis and likely inflammatory process about the left glenohumeral joint/rotator cuff.
[2023-10-02 12:15] LABS: Basophils # 0.1 10^3/uL (0.0-0.1); Basophils % 0.5 %; Eosinophils # 0.1 10^3/uL (0.0-0.8); Eosinophils % 0.8 %; Hematocrit 42.1 % (37-53); Lymphocytes # 1.6 10^3/uL (0.8-4.8); Lymphocytes % 14.3 %; Mean Corpuscular Hemoglobin 31.7 pg (27-33); Mean Corpuscular Volume 93.3 fl (82-101); Mean Platelet Volume 10.6 fL (7.4-10.4); Neutrophils # 8.32 10^3/uL (1.8-7.7); Neutrophils % 74.9 %; Nucleated Red Blood Cells % 0 %; Platelet Count 200 10^3/cmm (157-399); Red Blood Count 4.51 10^6/uL (3.85-5.65); Red Cell Distribution Width 14.2 % (12.1-15.1); White Blood Count 11.12 10^3/uL (3.29-11.43)
[2023-10-02 12:33] LABS: Alanine Aminotransferase 15 U/L (0-41); Albumin Level 2.8 g/dL (3.5-5.2); Alkaline Phosphatase 222 U/L (40-130); Anion Gap 18.2 (5-19); Aspartate Amino Transferase 37 U/L (0-40); Blood Urea Nitrogen 12 mg/dL (8-23); Calcium 8.3 mg/dL (8.5-10.5); Carbon Dioxide 23 mmol/L (22-29); Chloride 96 mmol/L (98-107); Globulin 3.5 g/dL (1.3-4.6); Glucose 185 mg/dL (65-115); Osmolality Calculated 283 mOsm/kg (285-295); Potassium 3.2 mmol/L (3.5-5.1); Sodium 134 mmol/L (136-145); Total Bilirubin 4.8 mg/dL (0.15-1.2); Total Protein 6.3 g/dL (6.6-8.7)
[2023-10-02 14:35] LABS: Carcinoembryonic Antigen 12.3 ng/mL (0.0-4.7); Tumor Marker Alpha Fetoprotein 2.6 ng/mL (0-8.3)
[2023-10-02 15:14] LABS: Cancer Antigen 19 9 168.8 U/mL (0-35)
== END 2023-10-11 23:59 | disposition home or self-care (01) ==
PROVIDERS: Internal Medicine; PCP Family Medicine; Visit Provider Internal Medicine Medical Oncology
DX: Z53.9 Procedure and treatment not carried out, unspecified reason; K86.89 Other specified diseases of pancreas; R18.8 Other ascites; E87.6 Hypokalemia; I48.91 Unspecified atrial fibrillation; I25.10 Atherosclerotic heart disease of native coronary artery without angina pectoris; L03.116 Cellulitis of left lower limb; L03.115 Cellulitis of right lower limb; R01.1 Cardiac murmur, unspecified; I50.9 Heart failure, unspecified; I11.0 Hypertensive heart disease with heart failure; Z87.891 Personal history of nicotine dependence; D69.6 Thrombocytopenia, unspecified
CPT/HCPCS: 36415; 78815; 80053; 82105; 82378; 85025; 86301; 99213; A9552

== ENCOUNTER 2023-10-09 10:16 | Day surgery (SDC) | payer OTHER, SELFPAY ==
[2023-10-09 10:21] VITALS: BMI 26.1
--- NOTE | 2023-10-09 10:24 | US_ITS ---
WS: [id number] ULTRASOUND-GUIDED THERAPEUTIC AND DIAGNOSTIC PARACENTESIS Procedure, risks, and complications have been explained to the patient. Consent is obtained. Utilizing aseptic technique and 1% buffered lidocaine, a small dermatome was made through which a 5 F rench Yueh catheter was inserted. Approximately 8000 ml of clear peritoneal fluid was obtained witho ut difficulty. No complications encountered. Specimen removed for analysis as requested. US/US paracentesis abd w [id number] IMPRESSION: Uncomplicated paracentesis yielding 8000 ml of peritoneal fluid.
[2023-10-09 10:27] VITALS: BP 132/81; PULSE 82; RESP 18; TEMP 36.1; O2SAT 99
[2023-10-09 11:21] LABS: Cyto Order Verification Order Verified
[2023-10-09 11:26] LABS: Mononuclear %, Pleural Fluid 84 %; Polynuclear Cells, Pleural % 16 %
[2023-10-09 11:28] LABS: Appearance, Pleural Fluid CLOUDY (CLEAR); Color, Pleural Fluid Yellow (Pale Yellow); Cyto Order Verification Order Verified
[2023-10-09 11:29] LABS: PATH Referal YES
[2023-10-09 11:57] LABS: Albumin Body Fluid 0.8 g/dL; Total Protein Peritoneal Fluid 1.4 g/dL
--- NOTE | 2023-10-09 12:00 | PC.NURSE ---
First paracentesis for this patient. 8,000 ml peritoneal fluid removed. Orthostatic vital signs taken 112/75 lying, 114/79 sitting, 115/61 standing. Patient had no complaints of dizziness or lightheadedness.
[2023-10-12 20:29] LABS: Amylase, Peritoneal Fluid <10 U/L
== END 2023-10-09 12:04 | disposition home or self-care (01) ==
LOC: GILAB 10:17
PROVIDERS: Radiology Diagnostic Radiology; PCP Family Medicine; Visit Provider Internal Medicine
PROC: (CPT 49082; principal; 2023-10-09 11:00)
DX: K86.89 Other specified diseases of pancreas (principal); I96 Gangrene, not elsewhere classified; L97.812 Non-pressure chronic ulcer of other part of right lower leg with fat layer exposed
CPT/HCPCS: 11042; 49083; 80503; 82042; 82150; 82945; 83615; 84157; 87070; 87075; 87205; 88112; 89050; 99213

== ENCOUNTER → 2023-10-23 12:57 | Outpatient (BNVA) | payer OTHER, SELFPAY | PROVIDERS: PCP Family Medicine; Visit Provider Thoracic Surgery (Cardiothoracic Vascular Surgery) | DX: E11.52 Type 2 diabetes mellitus with diabetic peripheral angiopathy with gangrene (principal); E11.622 Type 2 diabetes mellitus with other skin ulcer; L97.812 Non-pressure chronic ulcer of other part of right lower leg with fat layer exposed | CPT/HCPCS: 11042; 87070; 87176; 87205; A6446 ==

== ENCOUNTER 2023-10-30 10:01 | Oncology outpatient (recurring) (ONCR) | payer OTHER, SELFPAY ==
[2023-10-30 10:38] LABS: Basophils # 0.1 10^3/uL (0.0-0.1); Basophils % 0.9 %; Eosinophils # 0.2 10^3/uL (0.0-0.8); Hematocrit 47.7 % (37-53); Mean Corpuscular HGB Conc 34.6 g/dL (30-55); Mean Corpuscular Hemoglobin 31.9 pg (27-33); Mean Corpuscular Volume 92.1 fl (82-101); Monocytes # 0.9 10^3/uL (0.2-0.9); Monocytes % 7.6 %; Neutrophils # 7.36 10^3/uL (1.8-7.7); Neutrophils % 63.2 %; Nucleated Red Blood Cells % 0 %; Platelet Count 253 10^3/cmm (157-399); Red Blood Count 5.18 10^6/uL (3.85-5.65); Red Cell Distribution Width 15.2 % (12.1-15.1); White Blood Count 11.63 10^3/uL (3.29-11.43)
[2023-10-30 11:07] LABS: Carcinoembryonic Antigen 10.7 ng/mL (0.0-4.7)
[2023-10-30 11:19] LABS: Alanine Aminotransferase 13 U/L (0-41); Albumin Level 2.6 g/dL (3.5-5.2); Alkaline Phosphatase 166 U/L (40-130); Anion Gap 20.3 (5-19); Aspartate Amino Transferase 32 U/L (0-40); Blood Urea Nitrogen 12 mg/dL (8-23); Calcium 8.3 mg/dL (8.5-10.5); Carbon Dioxide 22 mmol/L (22-29); Chloride 97 mmol/L (98-107); Creatinine Clr Calc Pharmacy 82.6681; Globulin 3.7 g/dL (1.3-4.6); Glucose 115 mg/dL (65-115); Osmolality Calculated 283 mOsm/kg (285-295); Potassium 3.3 mmol/L (3.5-5.1); Sodium 136 mmol/L (136-145); Total Bilirubin 5.2 mg/dL (0.15-1.2); Total Protein 6.3 g/dL (6.6-8.7)
[2023-10-30 11:21] LABS: Hepatitis A Antibody IgM Non-Reactive (Nonreactive); Hepatitis B Core AB, Total Non-Reactive (Nonreactive); Hepatitis B Surface AB < 3.5 (11.5-1000); Hepatitis B Surface Antigen Non-Reactive (Nonreactive); Hepatitis C Virus Antibody Non-Reactive (Nonreactive)
[2023-10-30 15:06] LABS: Cancer Antigen 19 9 272.3 U/mL (0-35)
== END 2023-11-10 23:59 | disposition home or self-care (01) ==
LOC: ONCMED 10:02
PROVIDERS: Internal Medicine; PCP Family Medicine; Visit Provider Internal Medicine Medical Oncology
DX: K86.89 Other specified diseases of pancreas; Z87.891 Personal history of nicotine dependence; D69.6 Thrombocytopenia, unspecified; C25.2 Malignant neoplasm of tail of pancreas
CPT/HCPCS: 36415; 80053; 82378; 85025; 86301; 86705; 86706; 86709; 86803; 87340; 99215

== ENCOUNTER → 2023-11-27 11:17 | Outpatient (BNVA) | payer OTHER, SELFPAY | PROVIDERS: PCP Family Medicine; Visit Provider Thoracic Surgery (Cardiothoracic Vascular Surgery) | DX: I96 Gangrene, not elsewhere classified (principal); L97.811 Non-pressure chronic ulcer of other part of right lower leg limited to breakdown of skin | CPT/HCPCS: 97597 ==

== ENCOUNTER 2023-12-04 11:59 | Inpatient (IN) | payer OTHER, MEDICARE, SELFPAY ==
[2023-12-04] VITALS (32 sets, daily range): BP systolic 99–143; BP diastolic 54–72; PULSE 65–92; RESP 13–30; TEMP 35.1–36.6; O2SAT 93–100
--- NOTE | 2023-12-04 12:10 | ECG_ITS ---
[facility] Test Date: 2023-12-04 Pat Name: Jose Mosley Department: Room: Gender: Male Nurse Manager: : 1955 Requested By: Gloria Boyle Order Number: [id number] Pereira MD: Pavan Mckinley M.D. Measurements Intervals [place] Rate: 86 P: 0 [place]: 0 QRS: 8 QRSD: 126 T: 88 QT: 408 QTc: 490 Interpretive Statements ATRIAL FIBRILLATION WITH ABERRANT CONDUCTION OR VENTRICULAR PREMATURE COMPLEXES MODERATE INTRAVENTRICULAR CONDUCTION DELAY [110+ ms QRS DURATION] ST DEVIATION AND MODERATE T-WAVE ABNORMALITY, CONSIDER LATERAL ISCHEMIA [-0.1+ mV T-WAVE IN I/aVL/V5/V6] INTERPRETATION BASED ON A DEFAULT AGE OF 40 YEARS Compared to ECG 09/20/2023 13:25:35 Ventricular premature complex(es) now present Aberrant conduction of supraventricular beat(s) now present Intraventricular conduction delay now present T-wave abnormality now present Possible ischemia now present Myocardial infarct finding no longer present Electronically Signed On 12-04-2023 15:56:41 CDT by Pavan Mckinley M.D. [id number]
--- NOTE | 2023-12-04 12:11 | XR_ITS ---
WS: [id number] XR chest 1V portable [id number] REASON FOR EXAM: Weakness FINDINGS: The chest is unchanged compared to 09/20/2023. Moderate tortuosity and ectasia of the thoracic aorta. Normal heart size. Minimal calcified granulomas disease bilaterally. No acute/subacute pulmonary parenchymal or pleural abnormality is identified. Moderate degenerative spondylosis in the mid and lower thoracic spine. XR/XR chest 1V portable [id number] IMPRESSION: Stable chest without acute/subacute abnormality.
[2023-12-04 13:03] LABS: Basophils # 0.1 10^3/uL (0.0-0.1); Basophils % 0.4 %; Hematocrit 34.6 % (37-53); Lymphocytes # 2.1 10^3/uL (0.8-4.8); Lymphocytes % 14.6 %; Mean Corpuscular HGB Conc 34.4 g/dL (30-55); Mean Corpuscular Hemoglobin 31.8 pg (27-33); Mean Corpuscular Volume 92.5 fl (82-101); Mean Platelet Volume 11.2 fL (7.4-10.4); Monocytes # 0.6 10^3/uL (0.2-0.9); Monocytes % 3.9 %; Neutrophils # 11.15 10^3/uL (1.8-7.7); Nucleated Red Blood Cells # 0.5 /100WBC; Nucleated Red Blood Cells % 3.8 %; Platelet Count 166 10^3/cmm (157-399); Red Blood Count 3.74 10^6/uL (3.85-5.65); Red Cell Distribution Width 16.8 % (12.1-15.1); White Blood Count 14.11 10^3/uL (3.29-11.43)
[2023-12-04 13:13] LABS: INR 1.95 (0.8-1.2)
[2023-12-04 13:14] LABS: Partial Thromboplastin Time 39.9 SECONDS (23.9-36.7)
--- NOTE | 2023-12-04 13:14 | W.ED.WEAKNES ---
HPI - Weakness General: Chief complaint: Weakness Stated complaint: low bp, Dr. mooney sent over Time Seen by Provider: 12/04/23 12:02 History of Present Illness: 68-year-old male with a history of cirrhosis and ascites, tobacco dependence in remission, COPD, hypertension, neuropathy and chronic neck pain and a recent diagnosis of pancreatic cancer who presents to the emergency room from cardiology clinic with weakness and low blood pressure. He is reportedly lost over 60 pounds in the last 6 months. I spoke to Dr. Mooney about the patient. He was seeing him in cardiology clinic as part of his workup prior to being treated for the pancreatic cancer. Patient appeared very weak and sallow. Had a low blood pressure. So sent him to the emergency room. Patient denies any fevers. No cough. No chest pain. Review of Systems Narrative: Constitutional symptoms: Negative except as documented in HPI. Skin symptoms: Negative except as documented in HPI. Eye symptoms: Negative except as documented in HPI. ENMT symptoms: Negative except as documented in HPI. Respiratory symptoms: Negative except as documented in HPI. Cardiovascular symptoms: Negative except as documented in HPI. Gastrointestinal symptoms: Negative except as documented in HPI. Genitourinary symptoms: Negative except as documented in HPI. Musculoskeletal symptoms: Negative except as documented in HPI. Neurologic symptoms: Negative except as documented in HPI. Psychiatric symptoms: Negative except as documented in HPI. Endocrine symptoms: Negative except as documented in HPI. PFSH ED PFSH: Medical History Psoriasis Degenerative joint disease of spine Congestive heart failure Atrial fibrillation Peripheral neuropathy Ulnar nerve neuropathy History of ganglion cyst removal Hypertension COPD (chronic obstructive pulmonary disease) Surgical History History of surgical removal of ganglion cyst Right wrist Hx of colonoscopy History of cervical spinal surgery History of decompression of ulnar nerve History of surgery external aneurysm on right tenriism -2007 Family History Father Cancer Mother Congestive heart failure (CHF) Brother Congestive heart failure (CHF) Other Diabetes Lung disease Denies family history of CAD (coronary artery disease) Chronic kidney disease (CKD) Stroke Social History Smoking and tobacco/nicotine status: former use of tobacco/nicotine Quit status (tobacco/nicotine): has quit using Year quit tobacco: June 24, 2023 Former quit date comment: He smoked for 50 years, less than 1 PPD. Second hand smoke exposure: No Alcohol intake: current Alcohol intake frequency: few times a week Substance/Drug Use: never Lives independently: Yes Physical Exam Narrative: EXAM NARRATIVE: General: Alert, patient appears somewhat sallow and ill Skin: Warm, dry. Head: Normocephalic, atraumatic. Neck: Supple, trachea midline. Eye: Extraocular movements are intact. Ears, nose, mouth and throat: Dry oral mucosa Cardiovascular: Regular, Normal peripheral perfusion. Respiratory: Lungs are clear to auscultation, respirations are non-labored, breath sounds are equal, Symmetrical chest wall expansion. Gastrointestinal: Soft, Nontender, Non distended Musculoskeletal: Normal ROM, no deformity. Neurological: Alert and oriented, No focal neurological deficit observed. Psychiatric: Cooperative, appropriate mood & affect. Course Vital Signs: Vital signs: Vital Signs Temperature 95.2 F L 12/04/23 15:45 Pulse Rate 75 12/04/23 16:55 Respiratory Rate 23 H 12/04/23 16:55 Blood Pressure 104/63 12/04/23 16:55 Pulse Oximetry 98 12/04/23 16:55 Oxygen Delivery Me thod Room Air 12/04/23 12:05 MDM - Weakness Medical Decision Making Medical decision making: Differential diagnosis for patient presenting with generalized weakness including but not limited to and based on the above HPI, review of systems and physical exam: Sepsis. Dehydration. Renal failure. Electrolyte abnormalities. Anemia. Congestive heart failure. Hypotension. Coronary syndrome. Hepatitis. Cirrhosis. Infections such as pneumonia, urinary tract infection, [place]ick bourne illness, Cellulitis, Viral infections including influenza and Covid-19. Workup: labwork and lab/exam driven imaging ordered to evaluate, rule in and rule out above pathologies. EKG: Time 12:10 AM. Rate 86. Atrial fibrillation with controlled rate, quite a bit of interference. Some ST changes that are nonspecific, no ectopy, This was reviewed and interpreted by myself the ER physician at 1215. Done in triage. Repeat EKG: Time 1348. Rate 74. Atrial fibrillation with controlled rate, No ST-T changes, no ectopy, This was reviewed and interpreted by myself the ER physician at 1352. Less interference. No obvious changes. Chest x-ray: No acute process. No infiltrate. No pneumothorax. This was reviewed and interpreted by myself the ER physician. Lab Review: Laboratory results were reviewed and interpreted by myself the emergency room physician. Patient has a plethora of lab abnormalities. Leukocytosis with a white count of 14,000. Platelets are somewhat low at 166. Coags are elevated with an INR 1.9. Most of these would point to his liver disease. He is T. bili which normally is around 5 is up to almost 9 today. All of these would be stigmata of his worsening cirrhosis. His ammonia today is 116. I do not have any previous measurements. He does not have severe hepatic encephalopathy but likely does have some element this probably relates to his energy issues. His lactate is elevated at 9.8 initially and dropped down to 7.5 after some fluids. Urine is leukocyte Estrace positive and has around 20 whites. This is the only source I can find for infection. He does not have any abdominal tenderness to suggest SBP. No right upper quadrant tenderness to suggest cholelithiasis/cholecystitis. No biliary dilatation. BUN and creatinine are elevated above his baseline he is normally around 1-1.1. Today his creatinine is 1.9. Hepatorenal syndrome versus sepsis and dehydration. Consultation: I spoke with Dr. Mooney who was working the cardiology clinic today and saw the patient and transferred him to the emergency room. He told me he thinks the patient was there because he has a history of CHF and possibly aortic valve stenosis. Consultation: I spoke with Dr. Callahan who is familiar with the patient and follows him in clinic. Discussed this is a very tough case. He has known cirrhosis and ascites. He says this would be amenable to surgery except for he is not a good surgical candidate because of his severe hepatocellular disease. He recommends admission here and treatment for his ascites and sepsis. This seems to be more of an issue with his cirrhosis than with the pancreatic cancer. Consultation: I spoke with Dr. Ayers who is on-call for the hospitalist and agrees to admission. CT of the chest abdomen and pelvis with contrast: No acute chest abnormalities. Abdomen there was some concern for his gallbladder but he has no tenderness in his right upper quadrant. He has diffuse ascites. No acute processes were identified. The tumor in the tail of the pancreas is identified. This was reviewed and interpreted by myself the emergency room physician. I also reviewed the radiology report. I reviewed the patient's medical record. Reexamination: Patient Assessment and plan: Sepsis Hypothermia Urinary tract infection Cirrhosis Ascites Pancreatic cancer Coagulopathy Hepatic encephalopathy Acute renal insufficiency Hypothermia Hyperbilirubinemia - 1 L normal saline bolus. I do believe the patient may be septic. Possible sources his urine. However I am holding on additional fluid as he has extensive ascites and he is maintaining his blood pressure. He was however hypothermic. Has a lactic acidosis. Has acute renal failure.\ ?Bear hugger for his hypothermia -Broad-spectrum antibiotics were administered. Zyvox and meropenem. -Sepsis quality measures. -Lactic acid with a reflex was ordered. -Blood cultures were ordered. -I discussed the patient with the hospitalist on-call who is admitting the patient. - Discussed findings and plan with patient. Answered any questions. - All laboratory values were reviewed and interpreted personally by myself, the ER physician - All imaging was reviewed and interpreted personally by myself, the ER physician. - Evaluation and treatment of this problem were appropriate in the emergency setting -I spent a total of >35 minutes of critical care time managing the patient, independent of any other practitioner. -The time involved in the performance of separately reportable procedures was not counted towards critical care time. Lab Data 12/04/23 12:54 12/04/23 12:54 Radiology Impressions Chest X-Ray 12/04/23 12:11 IMPRESSION: Stable chest without acute/subacute abnormality. Chest/Abdomen/Pelvis CT 12/04/23 14:12 IMPRESSION: Large left pleural effusion. IMPRESSION: 1. Question cholelithiasis or focal gallbladder wall thickening, in which neoplastic disease is in the differential diagnosis. Ultrasound follow-up is recommended for clarification. 2. 2.6 x 2.2 x 2.4 cm enhancing lesion in the pancreatic tail. In keeping with known history of pancreatic carcinoma. 3. Concern for a focal splenic infarct versus artifact. 4. Cirrhosis and severely decompensated portal hypertension. 5. Acute enterocolitis or portal entero colopathy. COMMENTS: 1. Please review chest CT performed concomitantly for other important findings. 2. Consistent with the [employer]'s Incidental Findings Committee white paper (J Am Nitin Radiol 2018): Any incidental renal lesion less than 1 cm or classified as too small to characterize, or any incidental cystic renal lesion characterized as simple-appearing, is likely benign. No follow-up imaging is recommended for these lesions per consensus recommendations based on imaging criteria. Laboratory Results WBC 14.11 10^3/uL (3.29-11.43) H 12/04/23 12:54 RBC 3.74 10^6/uL (3.85-5.65) L 12/04/23 12:54 Hgb 11.90 g/dL (11.27-16.99) 12/04/23 12:54 Hct 34.6 % (37-53) L 12/04/23 12:54 MCV 92.5 fl (82-101) 12/04/23 12:54 MCH 31.8 pg (27-33) 12/04/23 12:54 MCHC 34.4 g/dL (30-55) 12/04/23 12:54 RDW 16.8 % (12.1-15.1) H 12/04/23 12:54 Plt Count 166 10^3/cmm (157-399) 12/04/23 12:54 MPV 11.2 fL (7.4-10.4) H 12/04/23 12:54 Neut % (Auto) 79.0 % 12/04/23 12:54 Lymph % (Auto) 14.6 % 12/04/23 12:54 [place] % (Auto) 3.9 % 12/04/23 12:54 Eos % (Auto) 0.0 % 12/04/23 12:54 Baso % (Auto) 0.4 % 12/04/23 12:54 Neut # (Auto) 11.15 10^3/uL (1.8-7.7) H 12/04/23 12:54 Lymph # (Auto) 2.1 10^3/uL (0.8-4.8) 12/04/23 12:54 [place] # (Auto) 0.6 10^3/uL (0.2-0.9) 12/04/23 12:54 Eos # (Auto) 0.0 10^3/uL (0.0-0.8) 12/04/23 12:54 Baso # (Auto) 0.1 10^3/uL (0.0-0.1) 12/04/23 12:54 Nucleated RBC % (auto) 3.8 % 12/04/23 12:54 Nucleated RBCs # 0.5 /100WBC 12/04/23 12:54 PT 22.90 SECONDS (12.1-14.9) H 12/04/23 12:54 INR 1.95 (0.8-1.2) H 12/04/23 12:54 APTT 39.9 SECONDS (23.9-36.7) H 12/04/23 12:54 Specimen Type Arterial 12/04/23 14:28 Sample Site Radial, right 12/04/23 14:28 ABG pH 7.54 (7.35-7.45) H 12/04/23 14:28 ABG pCO2 20.2 mmHg (35-45) L 12/04/23 14:28 ABG pO2 80.7 mmHg (80.0-100.0) 12/04/23 14:28 ABG PO2/FiO2 Ratio 384 12/04/23 14:28 ABG HCO3 17.2 mmol/L (22-26) L 12/04/23 14:28 ABG O2 Saturation 97.5 12/04/23 14:28 ABG Base Excess -3.6 mmol/L (-2.0-2.0) L 12/04/23 14:28 Julio C Test Pos 12/04/23 14:28 A-a O2 Gradient 5.5 mmHg (5-10) 12/04/23 14:28 Hematocrit 35.6 % (42-52) L 12/04/23 14:28 Hgb O2 Saturation 96.2 % (95-100) 12/04/23 14:28 Carboxyhemoglobin 0.9 %THgb (0.4-20.1) 12/04/23 14:28 Methemoglobin 0.4 % (0.4-1.5) 12/04/23 14:28 Total Hemoglobin 11.6 g/dL (14-18) L 12/04/23 14:28 Sodium 128.0 mmol/L (131-143) L 12/04/23 14:28 Potassium 3.3 mmol/L (3.5-5.0) L 12/04/23 14:28 Glucose 143.0 mg/dL (70-115) H 12/04/23 14:28 Ionized Calcium 1.1 mmol/L (1.1-1.4) 12/04/23 14:28 O2 Delivery Device Room air 12/04/23 14:28 FiO2 21.0 % 12/04/23 14:28 Brim Curler ID Francesco 12/04/23 14:28 Sodium 130 mmol/L (136-145) L 12/04/23 12:54 Potassium 3.5 mmol/L (3.5-5.1) 12/04/23 12:54 Chloride 93 mmol/L (98-107) L 12/04/23 12:54 Carbon Dioxide 13 mmol/L (22-29) L 12/04/23 12:54 Anion Gap 27.5 (5-19) H 12/04/23 12:54 BUN 25 mg/dL (8-23) H 12/04/23 12:54 Creatinine 1.9 mg/dL (0.7-1.2) H 12/04/23 12:54 GFR Calculation 35.6 mL/min (90-130) L 12/04/23 12:54 Glucose 146 mg/dL (65-115) H 12/04/23 12:54 Calculated Osmolality 277 mOsm/kg (285-295) L 12/04/23 12:54 Lactic Acid 9.7 mmol/L (0.5-2.2) H* 12/04/23 12:54 Lactic Acid (Sepsis) 7.5 mmol/L (0.5-2.2) H* 12/04/23 16:02 Calcium 8.5 mg/dL (8.5-10.5) 12/04/23 12:54 Total Bilirubin 8.8 mg/dL (0.15-1.2) H* 12/04/23 12:54 AST 21 U/L (0-40) 12/04/23 12:54 ALT 13 U/L (0-41) 12/04/23 12:54 Alkaline Phosphatase 151 U/L (40-130) H 12/04/23 12:54 Ammonia 112 umol/L (16-60) H 12/04/23 12:54 C-Reactive Protein 43.9 mg/L (0.0-4.9) H 12/04/23 12:54 NT-Pro-B Natriuret Pep 1532 pg/mL (0-125) H 12/04/23 12:54 Total Protein 6.5 g/dL (6.6-8.7) L 12/04/23 12:54 Albumin 2.7 g/dL (3.5-5.2) L 12/04/23 12:54 Globulin 3.8 g/dL (1.3-4.6) 12/04/23 12:54 Lipase 19 U/L (13-60) 12/04/23 12:54 Urine Color Other (Yellow) A 12/04/23 15:25 Urine Appearance Slightly cloudy (CLEAR) 12/04/23 15:25 Urine pH 5 (5-7) 12/04/23 15:25 Ur Specific [place] 1.020 (1.005-1.030) 12/04/23 15:25 Urine Protein 1+ (Negative) H 12/04/23 15:25 Urine Glucose (UA) Norm (Normal) 12/04/23 15:25 Urine Ketones Negative (Negative) 12/04/23 15:25 Urine Blood 2+ (Negative) H 12/04/23 15:25 Urine Nitrate Negative (Negative) 12/04/23 15:25 Urine Bilirubin 2+ (Negative) H 12/04/23 15:25 Urine Urobilinogen 4+ mg/dL (Negative) H 12/04/23 15:25 Ur Leukocyte Esterase 1+ (Negative) H 12/04/23 15:25 Urine RBC None /hpf (0-2) 12/04/23 15:25 Urine WBC 11-20 /hpf (0-5) 12/04/23 15:25 Ur Squamous Epith Cells 0-4 /hpf (0-5) H 12/04/23 15:25 Amorphous Sediment Not Reportable 12/04/23 15:25 Urine Bacteria 2+ /hpf (NONE) H 12/04/23 15:25 All radiology interpretation(s) finalized by discharge Discharge Plan Discharge Patient Disposition: Admitted As Inpatient Clinical Impression: Urinary tract infection, Cirrhosis, Ascites, Pancreatic cancer, Hepatic encephalopathy, Coagulopathy, Hyperbilirubinemia, Acute renal insufficiency, Hypothermia Sepsis Qualifiers: Sepsis type: sepsis due to unspecified organism Sepsis acute organ dysfunction status: unspecified Qualified Code(s): A41.9 - Sepsis, unspecified organism Condition: Stable Coding Level of Care Code ED [employer] for Alex Ruffin
[2023-12-04 13:18] LABS: Alanine Aminotransferase 13 U/L (0-41); Albumin Level 2.7 g/dL (3.5-5.2); Alkaline Phosphatase 151 U/L (40-130); Anion Gap 27.5 (5-19); Aspartate Amino Transferase 21 U/L (0-40); Blood Urea Nitrogen 25 mg/dL (8-23); C Reactive Protein 43.9 mg/L (0.0-4.9); Calcium 8.5 mg/dL (8.5-10.5); Carbon Dioxide 13 mmol/L (22-29); Chloride 93 mmol/L (98-107); Creatinine Clr Calc Pharmacy 36.8047; Globulin 3.8 g/dL (1.3-4.6); Glomerular Filtration Rate 35.6 mL/min (90-130); Glucose 146 mg/dL (65-115); Lipase 19 U/L (13-60); Osmolality Calculated 277 mOsm/kg (285-295); Potassium 3.5 mmol/L (3.5-5.1); Sodium 130 mmol/L (136-145); Total Protein 6.5 g/dL (6.6-8.7)
[2023-12-04 13:20] LABS: Ammonia 112 umol/L (16-60)
--- NOTE | 2023-12-04 13:35 | PC.NURSE ---
Rectal Temperature: 94.5 deg F, Dr. Fernandez notified. pt placed in gown and applied [place] Hugger to pt.
[2023-12-04 13:48] LABS: NT Pro B Type Natriuretic Pept 1532 pg/mL (0-125)
[2023-12-04 14:11] LABS: Total Bilirubin 8.8 mg/dL (0.15-1.2)
--- NOTE | 2023-12-04 14:12 | CTR_ITS ---
PROCEDURE INFORMATION: Exam: CT Chest With Contrast; Diagnostic Exam date and time: 12/04/2023 3:44 PM Age: 68 years old Clinical indication: Other: Weakness; Dyspnea; Additional info: Pancreatic cancer, possible sepsis TECHNIQUE: Imaging protocol: Diagnostic computed tomography of the chest with contrast. Radiation optimization: All CT scans at this facility use at least one of these dose optimization techniques: automated exposure control; mA and/or kV adjustment per patient size (includes targeted exams where dose is matched to clinical indication); or iterative reconstruction. Contrast material: OMNI 350; Contrast volume: 100 ml; Contrast route: INTRAVENOUS (IV); [id number] 09/17/2023 1:30 PM RADIATION DOSE METRICS: Total DLP (mGy-cm): 357 FINDINGS: Thyroid: 2 mm right thyroid lobe nodule. No follow-up is recommended according to current guidelines. Thyroid is otherwise unremarkable. Trachea: The airways are patent. Lungs: Bilateral apical capping/scarring. Bilateral apical paraseptal emphysema. There is subpleural atelectasis of the dependent portions of the lungs. Left lower lobe compressive atelectasis. Remainder of the lungs are clear. There are no pulmonary nodules. Pleural spaces: There is a large layering left pleural effusion present. No right pleural effusion. There is no evidence of pneumothorax. Heart: There is calcification of the aortic valve annulus. Heart is of normal size and morphology. No pericardial thickening or effusion. Coronary arteries: There is moderate atherosclerotic calcification of the coronary arteries. Mediastinal space: Mediastinum is otherwise unremarkable. Lymph nodes: There is no evidence of lymphadenopathy. Vasculature: The aorta demonstrates mild atherosclerotic calcification. No acute pathology in the aorta. The aorta is normal in course and caliber. Periesophageal varices. Bones/joints: There are healed right rib fractures.There are healed left rib fractures.Partially visualized lower cervical spine fixation hardware without discrete complications. Moderate multilevel degenerative changes of the spine, as manifested by multilevel anterior osteophytes and multilevel decrease in intervertebral disc space. No acute fracture, dislocation, or aggressive osseous lesion. Soft tissues: No acute body wall soft tissue findings. COMMENTS: 1. Please review abdomen and pelvic CT performed on the same date for other findings. 2. Consistent with the [place] [employer]'s Incidental Findings Committee white paper (J Am Nitin Radiol 2015): In patients aged 35 years and older with an incidental thyroid nodule equal to or greater than 1.[address], MRI or extrathyroidal US, further evaluation with dedicated thyroid US is recommended for patients with normal life expectancy and without comorbidities. For smaller nodules without suspicious features, no further evaluation or follow up is recommended. 3. The presence of pulmonary emphysema on CT is an independent risk factor for lung cancer. In the absence of a history or active diagnosis of lung cancer, it is recommended that this patient with emphysema be evaluated for enrollment in a low dose CT lung cancer screening program. PROCEDURE INFORMATION: Exam: CT Abdomen And Pelvis With Contrast Exam date and time: 12/04/2023 3:44 PM Age: 68 years old Clinical indication: Other: Weakness; Dyspnea; Additional info: Pancreatic cancer, possible sepsis TECHNIQUE: Imaging protocol: Computed tomography of the abdomen and pelvis with contrast. Radiation optimization: All CT scans at this facility use at least one of these dose optimization techniques: automated exposure control; mA and/or kV adjustment per patient size (includes targeted exams where dose is matched to clinical indication); or iterative reconstruction. Contrast material: OMNI 350; Contrast volume: 100 ml; Contrast route: INTRAVENOUS (IV); COMPARISON: PT PET [facility] INITIAL [id number] 09/17/2023 1:30 PM RADIATION DOSE METRICS: Total DLP (mGy-cm): 699 FINDINGS: Liver: The liver has a nodular contour and there is relative hypertrophy of the caudate lobe, consistent with cirrhosis. The liver is otherwise unremarkable. Gallbladder and biliary ducts: Layering hyperdense material in the gallbladder fundus with question of mild wall thickening. The gallbladder is otherwise unremarkable. There is no evidence of biliary ductal dilation. Pancreas: There is diffuse atrophy of the pancreatic parenchyma. There is diffuse, benign fatty infiltration of the pancreas. 2.6 x 2.2 x 2.4 cm enhancing lesion in the pancreatic tail. No ductal dilation. Spleen: Linear/wedge-shaped area of hypodensity in the spleen. The spleen is otherwise unremarkable. Adrenal glands: The adrenal glands are normal. Kidneys and ureters: There are multiple simple right renal cysts, as large as 2.9 cm. No follow-up is recommended. Subcentimeter right renal hypodense lesions are too small to characterize but most probably benign representing cysts. Consider correlation with nonemergent ultrasound. There are multiple simple left renal cysts, as large as 1.9 cm. No follow-up is recommended. Subcentimeter left renal hypodense lesions are too small to characterize but most probably benign representing cysts. Consider correlation with nonemergent ultrasound. No solid kidney masses. There is no evidence of hydronephrosis. No hydroureter. Stomach and bowel: Diffuse colonic diverticulosis. There is moderately excessive colonic stool content. Wall thickening and mucosal hyperenhancement in the transverse and ascending colon. Submucosal edema in the ascending colon. Wall thickening and mucosal hyperenhancement in the 4th duodenal segment and throughout the jejunum and ileum. No bowel obstruction. The stomach is normal. Appendix: No evidence of appendicitis. Intraperitoneal space: There is a large amount of free intraperitoneal fluid present. There is no free intraperitoneal air. No intraperitoneal fluid collections. Vasculature: Chronic thrombosis of the splenic vein. Remainder of the portal venous system is patent. Collateral portosystemic vessels throughout the omentum, perigastric space, and perisplenic space. The arterial vasculature demonstrates diffuse marked atherosclerotic calcification. No aortic aneurysms. Lymph nodes: There is no evidence of lymphadenopathy. Urinary bladder: The bladder is normal. Reproductive: The prostate demonstrates moderate nonspecific enlargement. The seminal vesicles are normal. Bones/joints: Diffusely decreased bone density, favoring osteopenia. Moderate multilevel degenerative changes of the spine, as manifested by multilevel anterior osteophytes and multilevel decrease in intervertebral disc space. No acute fracture, dislocation, or aggressive osseous lesion. Soft tissues: Ascites containing umbilical, supraumbilical, and right hemiabdomen ventral abdominal wall hernias. CT/CT chest abdpel w/*[id number] IMPRESSION: Large left pleural effusion. IMPRESSION: 1. Question cholelithiasis or focal gallbladder wall thickening, in which neoplastic disease is in the differential diagnosis. Ultrasound follow-up is recommended for clarification. 2. 2.6 x 2.2 x 2.4 cm enhancing lesion in the pancreatic tail. In keeping with known history of pancreatic carcinoma. 3. Concern for a focal splenic infarct versus artifact. 4. Cirrhosis and severely decompensated portal hypertension. 5. Acute enterocolitis or portal entero colopathy. COMMENTS: 1. Please review chest CT performed concomitantly for other important findings. 2. Consistent with the [employer] [employer]'s Incidental Findings Committee white paper (J Am Nitin Radiol 2018): Any incidental renal lesion less than 1 cm or classified as too small to characterize, or any incidental cystic renal lesion characterized as simple-appearing, is likely benign. No follow-up imaging is recommended for these lesions per consensus recommendations based on imaging criteria.
[2023-12-04 14:33] LABS: Lactic Sepsis W/Reflex 9.7 mmol/L (0.5-2.2)
[2023-12-04 14:39] LABS: ABG PCO2 20.2 mmHg (35-45); ABG PH Result 7.54 (7.35-7.45); Alveolar-Arterial Oxygen Gradi 5.5 mmHg (5-10); Arterial Blood Gas Hematocrit 35.6 % (42-52); Base Excess ABG -3.6 mmol/L (-2.0-2.0); Blood Gas Allen Test Pos; Blood Gas Operator Identificat WALCI; Blood Gas Sample Site Radial, right; Blood Gas Sample Type Arterial; Carboxyhemoglobin 0.9 %THgb (0.4-20.1); HCO3 ABG 17.2 mmol/L (22-26); HGB O2 Sat 96.2 % (95-100); Ionized Calcium Level - ABG 1.1 mmol/L (1.1-1.4); Methemoglobin 0.4 % (0.4-1.5); Oxygen Device ROOM AIR; Oxygen Saturation ABG 97.5; PO2 ABG 80.7 mmHg (80.0-100.0); PO2 FiO2 Ratio Arterial Blood 384; Potassium Level - ABG 3.3 mmol/L (3.5-5.0); Total Hemoglobin 11.6 g/dL (14-18)
[2023-12-04 14:45] LABS: Reflex Lactate Order REFLEX LACTIC ORDERD
[2023-12-04] MEDS: sodium chloride 0.9% 1,000 ML 999 ML IV (14:56)
[2023-12-04] MEDS: iohexol 350 mg/mL 500 mL Btl (per mL) IV (15:49)
[2023-12-04 16:15] LABS: Protein Urine 1+ (Negative); Urine Appearance Slightly Cloudy (CLEAR); Urine Color Other (Yellow); pH Urine 5 (5-7)
[2023-12-04 16:26] LABS: Bilirubin Urine 2+ (Negative); Blood Urine 2+ (Negative); Glucose Urine UA Norm (Normal); Ketones Urine Negative (Negative); Leukocyte Esterase Urine 1+ (Negative); Nitrate Urine Negative (Negative); Urobilinogen Urine 4+ mg/dL (Negative)
[2023-12-04 16:27] LABS: Add Urine Culture? Yes; Bacteria Urine 2+ /hpf; Squamous Epithelial Cell Urine 0-4 /hpf (0-5)
[2023-12-04 16:34] LABS: Lactic Acid level (Lactate) 7.5 mmol/L (0.5-2.2)
[2023-12-04] MEDS: meropenem 500 mg SDV IVP (17:43)
[2023-12-04] MEDS: linezolid premix 600 MG/300 ML PREMIX 300 MG IV (17:52)
--- NOTE | 2023-12-04 18:39 | P.HP_ITS ---
Providers/Chief Complaint 2 Admitting Physician: Olivia Ayers MD Primary Care Provider: Debora Garcia MD Chief Complaint: low bp, Dr. norton sent over History of Present Illness Jose Mosley is a 68 year old male with a history of A-fib RVR, recent diagnosis of cirrhosis, pancreatic cancer with a hypodense lesion over tail of the pancreas suspicious for neoplasm. Peritoneum with nodular appearance but without discrete mass. Evaluation with PET/CT in September 2023 showed malignancy of the pancreatic tail for which patient has undergone biopsy in [place]. He has large volume ascites and a small left pleural effusion since diagnosis. 8 L of paracentesis fluid was removed on October 09, 2023. Peritoneal fluid cytology was negative at that time. He was planned for surgical intervention, however it appears this has been delayed due to discovery of severe hepatocellular dysfunction, history of heart failure. Patient was seen earlier today in the cardiology office where he was noted to be hypotensive and was referred into the emergency room. Here he was noted to have an elevated lactate, hypothermia and initial blood pressure of 99/72. Patient appears to be dehydrated clinically. His skin is dry parched as are his mucous membranes. His speech is mildly slurred. Ammonia is elevated at 112. He states that he has been experiencing generalized weakness and low blood pressure chronically for a few days now. Tells me that he used to be on amlodipine but this has been taken off now. Denies any abdominal pain nausea vomiting diarrhea. Denies any hematemesis or melena. Denies any chest pain dyspnea palpitations at this time. Review of Systems 2 General: Reports: 10 or more systems reviewed and unremarkable except in HPI and below Const: Denies: fever(s), chills or body aches Eyes: Denies: change in vision, blurry vision or photophobia ENMT: Reports: hoarseness; Denies: throat pain, enlarged tonsils, odynophagia or nasal congestion Card: Denies: chest pain, palpitations, irregular heart rhythm, edema, swelling of feet/ankles, lightheadedness, pre-syncope, dyspnea on exertion or orthopnea Resp: Denies: dyspnea, productive cough, non-productive cough, wheezing, stridor, pain on inspiration, change in phlegm color, hemoptysis or chest congestion GI: Denies: abdominal pain, nausea, vomiting, hematemesis, coffee ground emesis, dysphagia, heartburn, diarrhea, constipation, GI cramping, change in stool character, hematochezia or melena : Denies: flank pain, dysuria, urinary frequency, urinary urgency, urinary hesitancy or hematuria Musc: Denies: neck pain, back pain, extremity pain, joint swelling, joint warmth or deformity Neuro: Denies: headache(s), numbness in extremities, weakness in extremities, sensory changes, difficulty walking, frequent falls, dizziness, vertigo, behavioral changes, Slurred speech present or seizure-like activity Psych: Denies: anxiety, depression, suicidal ideation or homicidal ideation Endo: Denies: polyuria, polydipsia, tired all the time, cold intolerance or hot flashes Mat/Lymph: Denies: easy bruising or easy bleeding Medications/Allergies Home Medications Medication Instructions Recorded Confirmed Last Taken Type cholecalciferol (vitamin D3) 25 25 mcg PO DAILY 01/05/21 12/04/23 10/08/23 History mcg (1,000 unit) capsule calcipotriene 0.005 % topical 1 applic topical BID #120 grams 07/11/21 12/04/23 10/08/23 Rx ointment atorvastatin 40 mg tablet 40 mg PO DAILY 10/25/21 12/04/23 10/08/23 History fluticasone 250 mcg-salmeterol 50 1 inh inhalation BID PRN Shortness 10/25/21 12/04/23 07/11/23 History mcg/dose blistr powdr for Of Breath Or Wheezing inhalation (Wixela Inhub) gabapentin 300 mg capsule 300 mg PO TID pain #90 caps 10/10/22 12/04/23 10/08/23 Rx diltiazem HCl 240 mg capsule,24 240 mg PO DAILY #30 caps 07/13/23 12/04/23 10/08/23 Rx hr,extended release tramadol 50 mg tablet 50 mg PO BID PRN pain related to 09/23/23 12/04/23 10/09/23 Rx cancer and spine #15 tabs hydrochlorothiazide 25 mg tablet 25 mg PO DAILY 10/08/23 12/04/23 10/08/23 History potassium chloride 20 mEq 20 meq PO DAILY 10/08/23 12/04/23 10/08/23 History tablet,extended release Allergies Allergy/AdvReac Type Severity Reaction Status Date / Time No Known Allergies Allergy Verified 10/30/23 11:19 PFSH Acute 2 PFSH: Medical History Psoriasis Degenerative joint disease of spine Congestive heart failure Atrial fibrillation Peripheral neuropathy Ulnar nerve neuropathy History of ganglion cyst removal Hypertension COPD (chronic obstructive pulmonary disease) Surgical History History of surgical removal of ganglion cyst Right wrist Hx of colonoscopy History of cervical spinal surgery History of decompression of ulnar nerve History of surgery external 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 Second hand smoke exposure: No Alcohol intake: current Alcohol intake frequency: few times a week Substance/Drug Use: never Lives independently: Yes Vitals/I&O/Wt Last Vital Signs Temp 95.2 F L 12/04/23 15:45 Pulse 75 12/04/23 18:01 Resp 23 H 12/04/23 16:55 BP 104/63 12/04/23 18:01 Pulse Ox 98 12/04/23 18:01 O2 Del Method Room Air 12/04/23 17:53 12/04/23 12/04/23 12/04/23 06:59 14:59 22:59 Intake Total 1000 / 1000 Balance 1000 / 1000 Weight last 48 hrs Weight 82.242 kg Weight 68.039 kg Physical Exam 2 Narrative: General: No acute distress, AO x3 HEENT: PERRLA, pupils bilaterally equal and reactive, pallors not present Chest: Normal vesicular breath sounds, no added sounds, equal good air entry bilaterally CVS: S1-S2 regular, no murmurs, no tachycardia, no gallops, no rubs Abdomen: Soft, nontender, no organomegaly, bowel sounds present Neuro: No focal deficits, no facial deformity, AO x3, power 5/5 in all limbs Data 12/04/23 12:54 12/04/23 12:54 Micro: Microbiology 12/04/23 12:54 Blood Culture - Preliminary Blood SPECIMEN COLLECTED 12/04/23 12:50 Blood Culture - Preliminary Blood SPECIMEN COLLECTED Other data: Radiology Impressions Chest X-Ray 12/04/23 12:11 IMPRESSION: Stable chest without acute/subacute abnormality. Chest/Abdomen/Pelvis CT 12/04/23 14:12 IMPRESSION: Large left pleural effusion. IMPRESSION: 1. Question cholelithiasis or focal gallbladder wall thickening, in which neoplastic disease is in the differential diagnosis. Ultrasound follow-up is recommended for clarification. 2. 2.6 x 2.2 x 2.4 cm enhancing lesion in the pancreatic tail. In keeping with known history of pancreatic carcinoma. 3. Concern for a focal splenic infarct versus artifact. 4. Cirrhosis and severely decompensated portal hypertension. 5. Acute enterocolitis or portal entero colopathy. COMMENTS: 1. Please review chest CT performed concomitantly for other important findings. 2. Consistent with the [employer]'s Incidental Findings Committee white paper (J Am Nitin Radiol 2018): Any incidental renal lesion less than 1 cm or classified as too small to characterize, or any incidental cystic renal lesion characterized as simple-appearing, is likely benign. No follow-up imaging is recommended for these lesions per consensus recommendations based on imaging criteria. Laboratory Results WBC 14.11 10^3/uL (3.29-11.43) H 12/04/23 12:54 RBC 3.74 10^6/uL (3.85-5.65) L 12/04/23 12:54 Hgb 11.90 g/dL (11.27-16.99) 12/04/23 12:54 Hct 34.6 % (37-53) L 12/04/23 12:54 MCV 92.5 fl (82-101) 12/04/23 12:54 MCH 31.8 pg (27-33) 12/04/23 12:54 MCHC 34.4 g/dL (30-55) 12/04/23 12:54 RDW 16.8 % (12.1-15.1) H 12/04/23 12:54 Plt Count 166 10^3/cmm (157-399) 12/04/23 12:54 MPV 11.2 fL (7.4-10.4) H 12/04/23 12:54 Neut % (Auto) 79.0 % 12/04/23 12:54 Lymph % (Auto) 14.6 % 12/04/23 12:54 [place] % (Auto) 3.9 % 12/04/23 12:54 Eos % (Auto) 0.0 % 12/04/23 12:54 Baso % (Auto) 0.4 % 12/04/23 12:54 Neut # (Auto) 11.15 10^3/uL (1.8-7.7) H 12/04/23 12:54 Lymph # (Auto) 2.1 10^3/uL (0.8-4.8) 12/04/23 12:54 [place] # (Auto) 0.6 10^3/uL (0.2-0.9) 12/04/23 12:54 Eos # (Auto) 0.0 10^3/uL (0.0-0.8) 12/04/23 12:54 Baso # (Auto) 0.1 10^3/uL (0.0-0.1) 12/04/23 12:54 Nucleated RBC % (auto) 3.8 % 12/04/23 12:54 Nucleated RBCs # 0.5 /100WBC 12/04/23 12:54 PT 22.90 SECONDS (12.1-14.9) H 12/04/23 12:54 INR 1.95 (0.8-1.2) H 12/04/23 12:54 APTT 39.9 SECONDS (23.9-36.7) H 12/04/23 12:54 Specimen Type Arterial 12/04/23 14:28 Sample Site Radial, right 12/04/23 14:28 ABG pH 7.54 (7.35-7.45) H 12/04/23 14:28 ABG pCO2 20.2 mmHg (35-45) L 12/04/23 14:28 ABG pO2 80.7 mmHg (80.0-100.0) 12/04/23 14:28 ABG PO2/FiO2 Ratio 384 12/04/23 14:28 ABG HCO3 17.2 mmol/L (22-26) L 12/04/23 14:28 ABG O2 Saturation 97.5 12/04/23 14:28 ABG Base Excess -3.6 mmol/L (-2.0-2.0) L 12/04/23 14:28 Julio C Test Pos 12/04/23 14:28 A-a O2 Gradient 5.5 mmHg (5-10) 12/04/23 14:28 Hematocrit 35.6 % (42-52) L 12/04/23 14:28 Hgb O2 Saturation 96.2 % (95-100) 12/04/23 14:28 Carboxyhemoglobin 0.9 %THgb (0.4-20.1) 12/04/23 14:28 Methemoglobin 0.4 % (0.4-1.5) 12/04/23 14:28 Total Hemoglobin 11.6 g/dL (14-18) L 12/04/23 14:28 Sodium 128.0 mmol/L (131-143) L 12/04/23 14:28 Potassium 3.3 mmol/L (3.5-5.0) L 12/04/23 14:28 Glucose 143.0 mg/dL (70-115) H 12/04/23 14:28 Ionized Calcium 1.1 mmol/L (1.1-1.4) 12/04/23 14:28 O2 Delivery Device Room air 12/04/23 14:28 FiO2 21.0 % 12/04/23 14:28 Information Assistant ID [place] 12/04/23 14:28 Sodium 130 mmol/L (136-145) L 12/04/23 12:54 Potassium 3.5 mmol/L (3.5-5.1) 12/04/23 12:54 Chloride 93 mmol/L (98-107) L 12/04/23 12:54 Carbon Dioxide 13 mmol/L (22-29) L 12/04/23 12:54 Anion Gap 27.5 (5-19) H 12/04/23 12:54 BUN 25 mg/dL (8-23) H 12/04/23 12:54 Creatinine 1.9 mg/dL (0.7-1.2) H 12/04/23 12:54 GFR Calculation 35.6 mL/min (90-130) L 12/04/23 12:54 Glucose 146 mg/dL (65-115) H 12/04/23 12:54 Calculated Osmolality 277 mOsm/kg (285-295) L 12/04/23 12:54 Lactic Acid 9.7 mmol/L (0.5-2.2) H* 12/04/23 12:54 Lactic Acid (Sepsis) 7.5 mmol/L (0.5-2.2) H* 12/04/23 16:02 Calcium 8.5 mg/dL (8.5-10.5) 12/04/23 12:54 Total Bilirubin 8.8 mg/dL (0.15-1.2) H* 12/04/23 12:54 AST 21 U/L (0-40) 12/04/23 12:54 ALT 13 U/L (0-41) 12/04/23 12:54 Alkaline Phosphatase 151 U/L (40-130) H 12/04/23 12:54 Ammonia 112 umol/L (16-60) H 12/04/23 12:54 C-Reactive Protein 43.9 mg/L (0.0-4.9) H 12/04/23 12:54 NT-Pro-B Natriuret Pep 1532 pg/mL (0-125) H 12/04/23 12:54 Total Protein 6.5 g/dL (6.6-8.7) L 12/04/23 12:54 Albumin 2.7 g/dL (3.5-5.2) L 12/04/23 12:54 Globulin 3.8 g/dL (1.3-4.6) 12/04/23 12:54 Lipase 19 U/L (13-60) 12/04/23 12:54 Urine Color Other (Yellow) A 12/04/23 15:25 Urine Appearance Slightly cloudy (CLEAR) 12/04/23 15:25 Urine pH 5 (5-7) 12/04/23 15:25 Ur Specific [place] 1.020 (1.005-1.030) 12/04/23 15:25 Urine Protein 1+ (Negative) H 12/04/23 15:25 Urine Glucose (UA) Norm (Normal) 12/04/23 15:25 Urine Ketones Negative (Negative) 12/04/23 15:25 Urine Blood 2+ (Negative) H 12/04/23 15:25 Urine Nitrate Negative (Negative) 12/04/23 15:25 Urine Bilirubin 2+ (Negative) H 12/04/23 15:25 Urine Urobilinogen 4+ mg/dL (Negative) H 12/04/23 15:25 Ur Leukocyte Esterase 1+ (Negative) H 12/04/23 15:25 Urine RBC None /hpf (0-2) 12/04/23 15:25 Urine WBC 11-20 /hpf (0-5) 12/04/23 15:25 Ur Squamous Epith Cells 0-4 /hpf (0-5) H 12/04/23 15:25 Amorphous Sediment Not Reportable 12/04/23 15:25 Urine Bacteria 2+ /hpf (NONE) H 12/04/23 15:25 A&P Assessment and plan (1) Cirrhosis: (2) Hepatic encephalopathy: (3) Portal hypertension: (4) Ascites: (5) Primary adenocarcinoma of tail of pancreas: Plan 68-year-old male with adenocarcinoma, liver cirrhosis with decompensated state, ascites, presenting to the hospital today with chief complaints of generalized weakness, malaise, noted to be hypotensive at an outpatient visit earlier today. Patient currently clinically appears to be volume depleted, showing signs of dehydration though does have ascites. His skin is wrinkled, parched. I believe he is intravascularly depleted and spite of having ascites as a result of portal hypertension. Start gentle IV fluids normal saline at 50 cc an hour, closely monitor for any respiratory decompensation Noted to have ascites, elevated white blood cell count and lactate, could possibly have SBP. Start empiric ceftriaxone 1 g IV every 24 hours Ultrasound-guided paracentesis for diagnostic and therapeutic paracentesis in the a.m. by radiology. Ammonia noted to be at 112. Patient is currently awake alert and oriented, however his speech is intermittently slurred, he is slow to respond, takes time to understand the questions being asked to him. This is related to hepatic encephalopathy. Start lactulose 20 mg every 6 hours, titrate to 4-6 bowel movements per day. Trend ammonia level. Hold gabapentin CT of the abdomen and pelvis showing large left pleural effusion. Possible cholelithiasis or focal gallbladder wall thickening for which neoplastic disease is in the differential diagnosis. Last PET scan dating back to September 2023 had shown disease localized to the pancreas. There was additional concern for possible splenic infarct versus artifact. 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 DEDRA likely related to dehydration, cannot rule out hepatorenal syndrome. Start midodrine 10 mg 3 times daily, if persistently hypotensive would add albumin every 8 hours DVT prophylaxis: Heparin 5000 subcutaneously every 12 hours Patient states he is a DNR/DNI, however he would like to be full code until his Sister Shruti and get here from [place] to be at his bedside. Attestations 2 Medical Necessity Statement*: Greater than 2 midnight admission is anticipated Coding Level of Care Code Acute Code for Chg Fwd High MDM includes number and complexity of problems actively addressed during encounter, amount and/or complexity of data reviewed/ordered and described risk of complication, morbidity or mortality of management as documented Diagnoses Cirrhosis K74.60 Hepatic encephalopathy K76.82 Portal hypertension K76.6 Ascites R18.8 Primary adenocarcinoma of tail of pancreas C25.2
[2023-12-04] MEDS: sodium chloride 0.9% 1,000 ML 50 ML IV (19:05)
[2023-12-04] MEDS: cefTRIAXone 1,000 mg SDV 1000 MG IVP (19:05)
[2023-12-04] MEDS: lactulose oral liq 20 gm/30 mL UDC PO (19:06)
[2023-12-04] MEDS: heparin 5,000 unit/mL INJ 1 mL 5000 UNIT SUBCUT (19:06)
[2023-12-04] MEDS: midodrine 5 mg TABLET 10 MG PO (20:03)
[2023-12-05] VITALS (7 sets, daily range): BP systolic 98–116; BP diastolic 56–70; PULSE 71–107; RESP 15–17; TEMP 36.3–36.6; O2SAT 95–98
[2023-12-05] MEDS: lactulose oral liq 20 gm/30 mL UDC PO ×4 (00:32→18:29)
[2023-12-05 04:31] LABS: Basophils % 0.2 %; Eosinophils % 0.3 %; Lymphocytes # 2.4 10^3/uL (0.8-4.8); Lymphocytes % 23.9 %; Mean Corpuscular HGB Conc 35.7 g/dL (30-55); Mean Corpuscular Hemoglobin 31.6 pg (27-33); Mean Corpuscular Volume 88.6 fl (82-101); Mean Platelet Volume 10.3 fL (7.4-10.4); Monocytes # 0.9 10^3/uL (0.2-0.9); Monocytes % 8.6 %; Neutrophils # 6.63 10^3/uL (1.8-7.7); Nucleated Red Blood Cells # 0.1 /100WBC; Platelet Count 106 10^3/cmm (157-399); Red Blood Count 3.16 10^6/uL (3.85-5.65); Red Cell Distribution Width 16.3 % (12.1-15.1); White Blood Count 10.04 10^3/uL (3.29-11.43)
[2023-12-05 04:51] LABS: Alanine Aminotransferase 9 U/L (0-41); Albumin Level 2.2 g/dL (3.5-5.2); Alkaline Phosphatase 122 U/L (40-130); Anion Gap 16.4 (5-19); Aspartate Amino Transferase 21 U/L (0-40); Blood Urea Nitrogen 29 mg/dL (8-23); Calcium 7.7 mg/dL (8.5-10.5); Carbon Dioxide 19 mmol/L (22-29); Chloride 98 mmol/L (98-107); Creatinine Clr Calc Pharmacy 54.5858; Globulin 3.1 g/dL (1.3-4.6); Glomerular Filtration Rate 43.5 mL/min (90-130); Glucose 111 mg/dL (65-115); Osmolality Calculated 277 mOsm/kg (285-295); Potassium 3.4 mmol/L (3.5-5.1); Sodium 130 mmol/L (136-145); Total Bilirubin 5.8 mg/dL (0.15-1.2); Total Protein 5.3 g/dL (6.6-8.7)
[2023-12-05 04:55] LABS: Ammonia 75 umol/L (16-60)
[2023-12-05 04:59] LABS: Slide Review Slide Review Perform
[2023-12-05] MEDS: heparin 5,000 unit/mL INJ 1 mL 5000 UNIT SUBCUT (06:10)
[2023-12-05] MEDS: midodrine 5 mg TABLET 10 MG PO ×3 (09:26→20:42)
--- NOTE | 2023-12-05 09:38 | PC.CHAP ---
Pastoral Care Encounter/Spiritual Assessment Type of Contact [] Declined clothing room supervisor visit [] Patient/Family/Request visit [] Outpatient visit [] Follow-up visit [] Physician referral [] Code/Alert [] Routine visit [] Staff referral [] Actively dying [x] Patient sleeping [] Family support [] [] Out of room [] Palliative care [] [] Receiving care in room [] Pre-surgical visit [] Trauma [] Long length of stay [] ICU visit [] Other: Relational/Emotional Strength [] Patient feels connected with others/family/visitors/staff [] Distress [] Loneliness/isolation [] Abandonment Spirituality of Patient [] Person of Marie [] Attends Tenriism of their Marie [] Believes in Prayer [] Reads Bible or Orthodox materials [] There are Spiritual issues to be addressed Heliotherapist Interventions [] Prayer [] Active listening [] Non-anxious presence [] Spiritual/emotional support [] Crisis/trauma care [] Spiritual counseling [] Bereavement support [] Provided bereavement packet [] Provided Bible/devotional materials [] Provided toy/stuffed animal, coloring book to patient or family member [] Provided Communion [] Anointing/[place] [] Salvation [] Completed spiritual assessment [] Other: Impact on Illness or Injury [] Angry [] Fearful [] Anxious [] Often cries [] Exhaustion [] Unable to work [] Unable to attend evangelical [] Unable to walk/stand [] Unable to read [] Unable to drive [] Unable to eat/drink [] Unable to sleep [] Unable to be with family [] Patient intubated [] Other: Summary Time spent with patient
--- NOTE | 2023-12-05 10:46 | PC.PHAR ---
PT IS [facility]
[2023-12-05] MEDS: sodium chloride 0.9% 1,000 ML 50 ML IV (13:18)
[2023-12-05 13:19] LABS: Color, Body Fluid YELLOW
[2023-12-05 13:20] LABS: Apprearance, Body Fluid CLOUDY; Body Fluid Polynuclear #Cells 0.041; Body Fluid WBC 171 /uL; Cyto Order Verification Order Verified; Fluid Laterality PARACENTESIS; RBC, Body Fluid 0 10^3/uL
[2023-12-05 13:44] LABS: Albumin Body Fluid 0.9 g/dL; Fluid Alkaline Phos. 30 IU/L; PATH Referral YES; Uric Acid Body Fluid 9 mg/dL
--- NOTE | 2023-12-05 17:12 | P.PN_ITS ---
Subjective 2 Subjective: Status post paracentesis with removal of 5 L fluid from the abdomen today. Cell count at 170, does not appear to be consistent with SBP. Pending Gram stain and culture from the ascitic fluid. Urine culture showing clear gram-negative rods pending further identification. Medications: Reviewed: Yes Vitals/I&O/Wt Last Vital Signs Temp 97.5 F L 12/06/23 07:33 Pulse 81 12/06/23 11:39 Resp 17 12/06/23 11:39 BP 90/61 12/06/23 11:39 Pulse Ox 97 12/06/23 11:39 O2 Del Method Room Air 12/06/23 11:39 12/06/23 12/06/23 12/06/23 06:59 14:59 22:59 Intake Total 1240 / 1240 Output Total 50 / 900 Balance -50 / 715.190 2329 / 1240 Weight last 48 hrs Weight 83.518 kg Weight 82.236 kg Weight 82.242 kg Physical Exam 2 Narrative: General: dehydarted AO x3, cachexic HEENT: PERRLA, pupils bilaterally equal and reactive, pallors not present Chest: Normal vesicular breath sounds, no added sounds, equal good air entry bilaterally CVS: S1-S2 regular, no murmurs, no tachycardia, no gallops, no rubs Abdomen: Soft, nontender, no organomegaly, bowel sounds present Neuro: No focal deficits, no facial deformity, AO x3, power 5/5 in all limbs Urinary Catheter Management: Jaramillo: Cath Placed During This Visit: yes Urinary Catheter Date of Insertion: 12/05/23 Urinary Catheter Time of Insertion: 16:20 Data 12/06/23 05:50 12/06/23 05:50 Micro: Microbiology 12/05/23 12:36 Gram Stain - Final Peritoneal Fluid Body Fluid Culture - Preliminary 12/04/23 15:25 Urine Culture - Preliminary Urine,Clean Catch Gram Negative Rods 12/04/23 12:54 Blood Culture - Preliminary Blood NEGATIVE TO DATE 12/04/23 12:50 Blood Culture - Preliminary Blood NEGATIVE TO DATE A&P Assessment and plan (1) Cirrhosis: (2) Hepatic encephalopathy: (3) Portal hypertension: (4) Ascites: (5) Primary adenocarcinoma of tail of pancreas: Plan 68-year-old male with adenocarcinoma, liver cirrhosis with decompensated state, ascites, presenting to the hospital today with chief complaints of generalized weakness, malaise, noted to be hypotensive at an outpatient visit earlier today. Patient currently clinically appears to be volume depleted, showing signs of dehydration though does have ascites. His skin is wrinkled, parched. I believe he is intravascularly depleted and spite of having ascites as a result of portal hypertension. Start gentle IV fluids normal saline at 50 cc an hour, closely monitor for any respiratory decompensation Noted to have ascites, elevated white blood cell count and lactate, could possibly have SBP. Start empiric ceftriaxone 1 g IV every 24 hours Ultrasound-guided paracentesis for diagnostic and therapeutic paracentesis in the a.m. by radiology. Ammonia noted to be at 112. Patient is currently awake alert and oriented, however his speech is intermittently slurred, he is slow to respond, takes time to understand the questions being asked to him. This is related to hepatic encephalopathy. Start lactulose 20 mg every 6 hours, titrate to 4-6 bowel movements per day. Trend ammonia level. Hold gabapentin CT of the abdomen and pelvis showing large left pleural effusion. Possible cholelithiasis or focal gallbladder wall thickening for which neoplastic disease is in the differential diagnosis. Last PET scan dating back to September 2023 had shown disease localized to the pancreas. There was additional concern for possible splenic infarct versus artifact. 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 DEDRA likely related to dehydration, cannot rule out hepatorenal syndrome. Start midodrine 10 mg 3 times daily, if persistently hypotensive would add albumin every 8 hours DVT prophylaxis: Heparin 5000 subcutaneously every 12 hours Patient states he is a DNR/DNI, however he would like to be full code until his Sister Shruti and get here from [place] to be at his bedside. December 05, 2023: Status post paracentesis today. Removal of 5 L fluid from the abdomen. Cell count does not appear to be consistent with SBP. Urine culture showing gram- negative rods pending further identification. Continue IV fluids. Awaiting echocardiogram results from [facility]. Continue midodrine, continue fluids. Discontinue heparin prophylaxis, patient's home list has been updated, start Pradaxa 150 mg p.o. twice daily as he takes at home. Additionally resume home dose of gabapentin Add rifaximin 550 mg p.o. twice daily for hepatic encephalopathy.Continue lactulose Attestations 2 Medical Necessity Statement*: s/p paracentesis, awaiting GR idnetification, iv abx Coding Level of Care Code Acute Code for Chg Fwd Diagnoses Cirrhosis K74.60 Hepatic encephalopathy K76.82 Portal hypertension K76.6 Ascites R18.8 Primary adenocarcinoma of tail of pancreas C25.2
[2023-12-05] MEDS: cefTRIAXone 1,000 mg SDV 1000 MG IVP (18:29)
--- NOTE | 2023-12-05 18:35 | US_ITS ---
WS: [id number] ULTRASOUND-GUIDED PARACENTESIS CLINICAL INFORMATION: SBP COMPARISON: None. Procedure Informed consent: The risks, benefits, and alternatives of the procedure were discussed with the brooke ent. Verbal and written consent was obtained. Timeout: A timeout was performed to confirm the correct patient, procedure, and site. Preparation: A suitable skin site was identified. The patient was prepped and draped in usual sterile fashion. Lidocaine 1% was used for local anesthesia. Catheter: 4 [place] One-step Yueh catheter. Side: RIGHT lower quadrant. Fluid Volume: 5000 ml Color: Clear yellow Complications: None. US/US paracentesis abd w [id number] IMPRESSION: Uncomplicated ultrasound-guided paracentesis. Removal of 5000 cc
[2023-12-05] MEDS: gabapentin 300 mg Capsule PO (20:42)
[2023-12-06] VITALS (8 sets, daily range): BP systolic 90–108; BP diastolic 57–65; PULSE 77–105; RESP 16–18; TEMP 36.4–36.8; O2SAT 93–99
[2023-12-06] MEDS: lactulose oral liq 20 gm/30 mL UDC PO ×4 (01:08→18:13)
[2023-12-06 05:57] LABS: Basophils # 0.1 10^3/uL (0.0-0.1); Basophils % 0.2 %; Hematocrit 30.5 % (37-53); Lymphocytes # 0.9 10^3/uL (0.8-4.8); Lymphocytes % 3.2 %; Mean Corpuscular HGB Conc 35.1 g/dL (30-55); Mean Corpuscular Hemoglobin 32.3 pg (27-33); Mean Corpuscular Volume 92.1 fl (82-101); Monocytes # 0.7 10^3/uL (0.2-0.9); Monocytes % 2.4 %; Neutrophils # 26.63 10^3/uL (1.8-7.7); Neutrophils % 93.4 %; Nucleated Red Blood Cells # 0.1 /100WBC; Nucleated Red Blood Cells % 0.4 %; Platelet Count 100 10^3/cmm (157-399); Red Blood Count 3.31 10^6/uL (3.85-5.65); Red Cell Distribution Width 17.2 % (12.1-15.1); White Blood Count 28.52 10^3/uL (3.29-11.43)
[2023-12-06 06:13] LABS: Alanine Aminotransferase 10 U/L (0-41); Alkaline Phosphatase 115 U/L (40-130); Aspartate Amino Transferase 21 U/L (0-40); Blood Urea Nitrogen 27 mg/dL (8-23); Calcium 7.6 mg/dL (8.5-10.5); Carbon Dioxide 18 mmol/L (22-29); Chloride 102 mmol/L (98-107); Creatinine Clr Calc Pharmacy 79.3953; Glucose 112 mg/dL (65-115); Osmolality Calculated 284 mOsm/kg (285-295); Sodium 134 mmol/L (136-145); Total Bilirubin 4.6 mg/dL (0.15-1.2)
[2023-12-06 06:22] LABS: Anion Gap 17.4 (5-19); Potassium 3.4 mmol/L (3.5-5.1)
[2023-12-06 06:23] LABS: Ammonia 89 umol/L (16-60)
[2023-12-06] MEDS: midodrine 5 mg TABLET 10 MG PO ×3 (09:53→20:28)
[2023-12-06] MEDS: gabapentin 300 mg Capsule PO ×2 (09:53→15:54)
[2023-12-06] MEDS: sodium chloride 0.9% 1,000 ML 50 ML IV (10:38)
--- NOTE | 2023-12-06 11:06 | PC.CHAP ---
Pastoral Care Encounter/Spiritual Assessment Type of Contact [x] Declined field artillery targeting technician visit [] Patient/Family/Request visit [] Outpatient visit [] Follow-up visit [] Physician referral [] Code/Alert [] Routine visit [] Staff referral [] Actively dying [] Patient sleeping [] Family support [] [] Out of room [] Palliative care [] [] Receiving care in room [] Pre-surgical visit [] Trauma [] Long length of stay [] ICU visit [] Other: Relational/Emotional Strength [] Patient feels connected with others/family/visitors/staff [] Distress [] Loneliness/isolation [] Abandonment Spirituality of Patient [] Person of Marie [] Attends Oriental Orthodox of their Marie [] Believes in Prayer [] Reads Bible or Congregation materials [] There are Spiritual issues to be addressed Mail Processing Associate Interventions [] Prayer [] Active listening [] Non-anxious presence [] Spiritual/emotional support [] Crisis/trauma care [] Spiritual counseling [] Bereavement support [] Provided bereavement packet [] Provided Bible/devotional materials [] Provided toy/stuffed animal, coloring book to patient or family member [] Provided Communion [] Anointing/[place] [] Salvation [] Completed spiritual assessment [] Other: Impact on Illness or Injury [] Angry [] Fearful [] Anxious [] Often cries [] Exhaustion [] Unable to work [] Unable to attend nondenominational [] Unable to walk/stand [] Unable to read [] Unable to drive [] Unable to eat/drink [] Unable to sleep [] Unable to be with family [] Patient intubated [] Other: Summary Time spent with patient
--- NOTE | 2023-12-06 17:07 | P.PN_ITS ---
Subjective 2 Subjective: Leukocytosis is increasing to 28K today, continues to appear very dehydrated. BP better. Echo reveiwed from [facility] - EF 65%, no gross diatolsic dysfunction Medications: Reviewed: Yes Vitals/I&O/Wt Last Vital Signs Temp 97.5 F L 12/06/23 07:33 Pulse 81 12/06/23 11:39 Resp 17 12/06/23 11:39 BP 90/61 12/06/23 11:39 Pulse Ox 97 12/06/23 11:39 O2 Del Method Room Air 12/06/23 11:39 12/06/23 12/06/23 12/06/23 06:59 14:59 22:59 Intake Total 1240 / 1240 Output Total 50 / 900 Balance -50 / 458.484 6205 / 1240 Weight last 48 hrs Weight 83.518 kg Weight 82.236 kg Weight 82.242 kg Physical Exam 2 Narrative: General: dehydarted AO x3, cachexic HEENT: PERRLA, pupils bilaterally equal and reactive, pallors not present Chest: Normal vesicular breath sounds, no added sounds, equal good air entry bilaterally CVS: S1-S2 regular, no murmurs, no tachycardia, no gallops, no rubs Abdomen: Soft, nontender, no organomegaly, bowel sounds present Neuro: No focal deficits, no facial deformity, AO x3, power 5/5 in all limbs Urinary Catheter Management: Jaramillo: Cath Placed During This Visit: yes Urinary Catheter Date of Insertion: 12/05/23 Urinary Catheter Time of Insertion: 16:20 Data 12/06/23 05:50 12/06/23 05:50 Micro: Microbiology 12/05/23 12:36 Gram Stain - Final Peritoneal Fluid Body Fluid Culture - Preliminary 12/04/23 15:25 Urine Culture - Preliminary Urine,Clean Catch Gram Negative Rods 12/04/23 12:54 Blood Culture - Preliminary Blood NEGATIVE TO DATE 12/04/23 12:50 Blood Culture - Preliminary Blood NEGATIVE TO DATE A&P Assessment and plan (1) Cirrhosis: (2) Hepatic encephalopathy: (3) Portal hypertension: (4) Ascites: (5) Primary adenocarcinoma of tail of pancreas: Plan 68-year-old male with adenocarcinoma, liver cirrhosis with decompensated state, ascites, presenting to the hospital today with chief complaints of generalized weakness, malaise, noted to be hypotensive at an outpatient visit earlier today. Patient currently clinically appears to be volume depleted, showing signs of dehydration though does have ascites. His skin is wrinkled, parched. I believe he is intravascularly depleted and spite of having ascites as a result of portal hypertension. Start gentle IV fluids normal saline at 50 cc an hour, closely monitor for any respiratory decompensation Noted to have ascites, elevated white blood cell count and lactate, could possibly have SBP. Start empiric ceftriaxone 1 g IV every 24 hours Ultrasound-guided paracentesis for diagnostic and therapeutic paracentesis in the a.m. by radiology. Ammonia noted to be at 112. Patient is currently awake alert and oriented, however his speech is intermittently slurred, he is slow to respond, takes time to understand the questions being asked to him. This is related to hepatic encephalopathy. Start lactulose 20 mg every 6 hours, titrate to 4-6 bowel movements per day. Trend ammonia level. Hold gabapentin CT of the abdomen and pelvis showing large left pleural effusion. Possible cholelithiasis or focal gallbladder wall thickening for which neoplastic disease is in the differential diagnosis. Last PET scan dating back to September 2023 had shown disease localized to the pancreas. There was additional concern for possible splenic infarct versus artifact. 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 DEDRA likely related to dehydration, cannot rule out hepatorenal syndrome. Start midodrine 10 mg 3 times daily, if persistently hypotensive would add albumin every 8 hours DVT prophylaxis: Heparin 5000 subcutaneously every 12 hours Patient states he is a DNR/DNI, however he would like to be full code until his Sister Shruti and get here from [place] to be at his bedside. December 06, 2023: WBC increasing to 28,000 today. This may be partially related to removal of over 5 L fluids from the abdomen yesterday. Labs do not appear to be consistent with SBP. Thus far body fluid culture with negative Gram stain. Urine culture showing gram-negative rods pending further identification. Broaden antibiotic from ceftriaxone to meropenem given elevation in white blood cell count; Prior urine cultures from July and August have shown Pseudomonas aeruginosa. Echocardiogram obtained from [facility], systolic function at 65% EF, no gross diastolic dysfunction noted. Will increase fluids to normal saline at 100 cc an hour as patient appears to be grossly dehydrated clinically, add albumin every 8 hours. Attestations 2 Medical Necessity Statement*: Increasing white blood cell count urine culture showing gram-negative rods pending identification, broaden antibiotics. Coding Level of Care Code Acute Code for [facility] Fwd Diagnoses Cirrhosis K74.60 Hepatic encephalopathy K76.82 Portal hypertension K76.6 Ascites R18.8 Primary adenocarcinoma of tail of pancreas C25.2
[2023-12-06] MEDS: albumin 25 G/100 ML BAG 60 G IV (17:40)
[2023-12-06] MEDS: meropenem 1,000 mg SDV 1000 MG IVP (20:28)
[2023-12-07] VITALS (11 sets, daily range): BP systolic 94–117; BP diastolic 52–73; PULSE 75–94; RESP 16–19; TEMP 36.4–36.6; O2SAT 91–97
[2023-12-07] MEDS: albumin 25 G/100 ML BAG 60 G IV ×3 (00:21→18:10)
[2023-12-07] MEDS: lactulose oral liq 20 gm/30 mL UDC PO ×4 (00:21→18:10)
[2023-12-07] MEDS: sodium chloride 0.9% 1,000 ML 100 ML IV ×3 (02:26→20:30)
[2023-12-07] MEDS: meropenem 1,000 mg SDV 1000 MG IVP ×2 (03:01→12:35)
[2023-12-07 03:47] LABS: Basophils % 0.1 %; Eosinophils # 0.1 10^3/uL (0.0-0.8); Eosinophils % 0.8 %; Hematocrit 25.8 % (37-53); Lymphocytes # 2.5 10^3/uL (0.8-4.8); Lymphocytes % 17.4 %; Mean Corpuscular Volume 88.7 fl (82-101); Mean Platelet Volume 11.5 fL (7.4-10.4); Monocytes # 0.8 10^3/uL (0.2-0.9); Monocytes % 5.4 %; Neutrophils # 11.05 10^3/uL (1.8-7.7); Neutrophils % 75.8 %; Nucleated Red Blood Cells # 0.1 /100WBC; Nucleated Red Blood Cells % 0.3 %; Platelet Count 68 10^3/cmm (157-399); Red Blood Count 2.91 10^6/uL (3.85-5.65); Red Cell Distribution Width 16.7 % (12.1-15.1); White Blood Count 14.59 10^3/uL (3.29-11.43)
[2023-12-07 04:14] LABS: Alanine Aminotransferase 9 U/L (0-41); Albumin Level 2.6 g/dL (3.5-5.2); Alkaline Phosphatase 130 U/L (40-130); Anion Gap 13.6 (5-19); Aspartate Amino Transferase 14 U/L (0-40); Blood Urea Nitrogen 24 mg/dL (8-23); Calcium 7.7 mg/dL (8.5-10.5); Carbon Dioxide 21 mmol/L (22-29); Chloride 101 mmol/L (98-107); Creatinine Clr Calc Pharmacy 97.6243; Globulin 2.3 g/dL (1.3-4.6); Glomerular Filtration Rate 84.4 mL/min (90-130); Glucose 103 mg/dL (65-115); Magnesium 1.6 mg/dL (1.7-2.3); Osmolality Calculated 280 mOsm/kg (285-295); Sodium 133 mmol/L (136-145); Total Bilirubin 3.6 mg/dL (0.15-1.2); Total Protein 4.9 g/dL (6.6-8.7)
[2023-12-07 04:22] LABS: Potassium 2.6 mmol/L (3.5-5.1)
[2023-12-07] MEDS: lidocaine 1% 5 ML in potassium chloride premix 100 ML 26.25 ML IV (05:11)
[2023-12-07] MEDS: midodrine 5 mg TABLET 10 MG PO ×3 (09:21→20:30)
--- NOTE | 2023-12-07 17:20 | P.PN_ITS ---
Subjective 2 Subjective: Patient appearing to be much improved today. Leukocytosis down to 14,000. He is much better hydrated. Medications: Reviewed: Yes Vitals/I&O/Wt Last Vital Signs Temp 97.7 F 12/07/23 15:45 Pulse 79 12/07/23 15:45 Resp 18 12/07/23 15:45 BP 105/71 12/07/23 15:45 Pulse Ox 95 12/07/23 15:45 O2 Del Method Room Air 12/07/23 15:45 12/07/23 12/07/23 12/07/23 06:59 14:59 22:59 Intake Total 748.333 / 2440.000 1568.333 / 1568.333 100 / 1668.333 Output Total 225 / 825 Balance 523.333 / 8148.595 4513.333 / 1568.333 100 / 1668.333 Weight last 48 hrs Weight 85.417 kg Weight 83.518 kg Physical Exam 2 Narrative: General: dehydarted AO x3, cachexic HEENT: PERRLA, pupils bilaterally equal and reactive, pallors not present Chest: Normal vesicular breath sounds, no added sounds, equal good air entry bilaterally CVS: S1-S2 regular, no murmurs, no tachycardia, no gallops, no rubs Abdomen: Soft, nontender, no organomegaly, bowel sounds present Neuro: No focal deficits, no facial deformity, AO x3, power 5/5 in all limbs Urinary Catheter Management: Jaramillo: Cath Placed During This Visit: yes Reason for Continuing Indwelling Catheter: Acute Urinary Retention or Obstruction Urinary Catheter Date of Insertion: 12/05/23 Urinary Catheter Time of Insertion: 16:20 Data 12/07/23 02:58 12/07/23 02:58 Micro: Microbiology 12/05/23 12:36 Gram Stain - Final Peritoneal Fluid Body Fluid Culture - Preliminary 12/04/23 15:25 Urine Culture - Final Urine,Clean Catch Pseudomonas aeruginosa Organism 1 Pseudomonas aeruginosa [place] Count >100,000 CFU/ml DAY 2 P aerugino [facility] RX --------- ------ * Amikacin <=16 S * Aztreonam <=4 S * Cefepime <=8 S * Ciprofloxacin <=1 S * Gentamicin <=2 S * Imipenem <=1 S * Levofloxacin <=2 S * Piperacillin/Tazobactam <=16 S A&P Assessment and plan (1) Cirrhosis: (2) Hepatic encephalopathy: (3) Portal hypertension: (4) Ascites: (5) Primary adenocarcinoma of tail of pancreas: Plan 68-year-old male with adenocarcinoma, liver cirrhosis with decompensated state, ascites, presenting to the hospital today with chief complaints of generalized weakness, malaise, noted to be hypotensive at an outpatient visit earlier today. Patient currently clinically appears to be volume depleted, showing signs of dehydration though does have ascites. His skin is wrinkled, parched. I believe he is intravascularly depleted and spite of having ascites as a result of portal hypertension. Start gentle IV fluids normal saline at 50 cc an hour, closely monitor for any respiratory decompensation Noted to have ascites, elevated white blood cell count and lactate, could possibly have SBP. Start empiric ceftriaxone 1 g IV every 24 hours Ultrasound-guided paracentesis for diagnostic and therapeutic paracentesis in the a.m. by radiology. Ammonia noted to be at 112. Patient is currently awake alert and oriented, however his speech is intermittently slurred, he is slow to respond, takes time to understand the questions being asked to him. This is related to hepatic encephalopathy. Start lactulose 20 mg every 6 hours, titrate to 4-6 bowel movements per day. Trend ammonia level. Hold gabapentin CT of the abdomen and pelvis showing large left pleural effusion. Possible cholelithiasis or focal gallbladder wall thickening for which neoplastic disease is in the differential diagnosis. Last PET scan dating back to September 2023 had shown disease localized to the pancreas. There was additional concern for possible splenic infarct versus artifact. 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 DEDRA likely related to dehydration, cannot rule out hepatorenal syndrome. Start midodrine 10 mg 3 times daily, if persistently hypotensive would add albumin every 8 hours DVT prophylaxis: Heparin 5000 subcutaneously every 12 hours Patient states he is a DNR/DNI, however he would like to be full code until his Sister Shruti and get here from [place] to be at his bedside. December 05, 2023: Status post paracentesis today. Removal of 5 L fluid from the abdomen. Cell count does not appear to be consistent with SBP. Urine culture showing gram- negative rods pending further identification. Continue IV fluids. Awaiting echocardiogram results from [facility]. Continue midodrine, continue fluids. Discontinue heparin prophylaxis, patient's home list has been updated, start Pradaxa 150 mg p.o. twice daily as he takes at home. Additionally resume home dose of gabapentin Add rifaximin 550 mg p.o. twice daily for hepatic encephalopathy.Continue lactulose December 07, 2023 Clinically improving today. He is alert awake and oriented. Niece is at his bedside. WBC improving down to 14,000. Urine culture showing Pseudomonas aeruginosa. Antibiotics changed to ciprofloxacin 500 mg p.o. twice daily in keeping with culture results. Gabapentin to remain on hold. He is going to have bowel movements today. Continue IV fluids normal saline 100 cc an hour. Thus far does not appear to have reaccumulated any fluid in the abdomen as ascites. Add Protonix 40 mg p.o. twice daily for GI prophylaxis. Discontinue Pradaxa as platelet count down to 68,000 today. Attestations 2 Medical Necessity Statement*: Continued need for antibiotics, slowly improving. Check ammonia with a.m. labs. With continued improvement anticipate discharge in the upcoming 24 to 48 hours. Coding Level of Care Code Acute Code for Chg Fwd High MDM includes number and complexity of problems actively addressed during encounter, amount and/or complexity of data reviewed/ordered and described risk of complication, morbidity or mortality of management as documented Diagnoses Cirrhosis K74.60 Hepatic encephalopathy K76.82 Portal hypertension K76.6 Ascites R18.8 Primary adenocarcinoma of tail of pancreas C25.2
[2023-12-07] MEDS: pantoprazole DR 40 mg Tablet PO (18:10)
[2023-12-07] MEDS: ciprofloxacin 500 mg Tablet PO (20:30)
[2023-12-08] VITALS (9 sets, daily range): BP systolic 106–124; BP diastolic 62–75; PULSE 80–103; RESP 16–20; TEMP 36.4–36.8; O2SAT 95–98
[2023-12-08] MEDS: albumin 25 G/100 ML BAG 60 G IV ×3 (00:26→18:05)
[2023-12-08] MEDS: lactulose oral liq 20 gm/30 mL UDC PO ×4 (00:26→18:05)
[2023-12-08 04:26] LABS: Eosinophils # 0.2 10^3/uL (0.0-0.8); Eosinophils % 2.8 %; Hematocrit 26.4 % (37-53); Lymphocytes # 2.5 10^3/uL (0.8-4.8); Mean Corpuscular HGB Conc 35.2 g/dL (30-55); Mean Corpuscular Hemoglobin 32.1 pg (27-33); Mean Platelet Volume 11.1 fL (7.4-10.4); Monocytes # 0.8 10^3/uL (0.2-0.9); Monocytes % 10.4 %; Neutrophils % 52.1 %; Nucleated Red Blood Cells # 0.1 /100WBC; Nucleated Red Blood Cells % 0.8 %; Platelet Count 64 10^3/cmm (157-399); Red Cell Distribution Width 17.2 % (12.1-15.1); White Blood Count 7.48 10^3/uL (3.29-11.43)
[2023-12-08 04:45] LABS: Alanine Aminotransferase 8 U/L (0-41); Albumin Level 3.1 g/dL (3.5-5.2); Alkaline Phosphatase 88 U/L (40-130); Anion Gap 14.9 (5-19); Aspartate Amino Transferase 12 U/L (0-40); Blood Urea Nitrogen 20 mg/dL (8-23); Calcium 7.6 mg/dL (8.5-10.5); Carbon Dioxide 18 mmol/L (22-29); Chloride 108 mmol/L (98-107); Creatinine Clr Calc Pharmacy 110.8032; Globulin 1.9 g/dL (1.3-4.6); Glomerular Filtration Rate 112.8 mL/min (90-130); Glucose 88 mg/dL (65-115); Osmolality Calculated 288 mOsm/kg (285-295); Sodium 138 mmol/L (136-145); Total Bilirubin 2.9 mg/dL (0.15-1.2)
[2023-12-08 04:46] LABS: Ammonia 45 umol/L (16-60)
[2023-12-08 05:11] LABS: Potassium 2.9 mmol/L (3.5-5.1)
[2023-12-08] MEDS: lidocaine 1% 5 ML in potassium chloride premix 100 ML 26.25 ML IV ×2 (06:30→12:14)
[2023-12-08] MEDS: sodium chloride 0.9% 1,000 ML 100 ML IV (06:31)
[2023-12-08] MEDS: rifaximin 200 mg Tablet 400 MG PO (08:59)
[2023-12-08] MEDS: ciprofloxacin 500 mg Tablet PO ×2 (08:59→20:58)
[2023-12-08] MEDS: midodrine 5 mg TABLET 10 MG PO ×3 (08:59→20:58)
[2023-12-08] MEDS: pantoprazole DR 40 mg Tablet PO ×2 (09:11→18:05)
--- NOTE | 2023-12-08 17:56 | PM.PN ---
Subjective Subjective: Patient is much improved today. Leukocytosis has resolved. Appears to be much better and hydrated, in good spirits. Hepatic encephalopathy also resolved. Medications: Reviewed: Yes Vitals/I&O/Wt Last Vital Signs Temp 98.0 F 12/08/23 11:45 Pulse 103 H 12/08/23 11:45 Resp 18 12/08/23 11:45 BP 124/75 12/08/23 11:45 Pulse Ox 96 12/08/23 11:45 O2 Del Method Room Air 12/08/23 07:40 12/08/23 12/08/23 12/08/23 06:59 14:59 22:59 Intake Total 1100 / 3811.666 840 / 840 100 / 940 Output Total 450 / 450 Balance 650 / 3361.666 840 / 840 100 / 940 Weight last 48 hrs Weight 87.572 kg Weight 85.417 kg Physical Exam Narrative: General: No acute distress, AO x3 HEENT: PERRLA, pupils bilaterally equal and reactive, pallors not present Chest: Normal vesicular breath sounds, no added sounds, equal good air entry bilaterally CVS: S1-S2 regular, no murmurs, no tachycardia, no gallops, no rubs Abdomen: Soft, nontender, no organomegaly, bowel sounds present Neuro: No focal deficits, no facial deformity, AO x3, power 5/5 in all limbs Urinary Catheter Management: Jaramillo: Cath Placed During This Visit: yes Reason for Continuing Indwelling Catheter: Acute Urinary Retention or Obstruction Urinary Catheter Date of Insertion: 12/05/23 Urinary Catheter Time of Insertion: 16:20 Data 12/08/23 04:17 12/08/23 04:17 Micro: Microbiology 12/05/23 12:36 Gram Stain - Final Peritoneal Fluid Body Fluid Culture - Final A&P Assessment and plan (1) Cirrhosis: (2) Hepatic encephalopathy: (3) Portal hypertension: (4) Ascites: (5) Primary adenocarcinoma of tail of pancreas: Plan 68-year-old male with adenocarcinoma, liver cirrhosis with decompensated state, ascites, presenting to the hospital today with chief complaints of generalized weakness, malaise, noted to be hypotensive at an outpatient visit earlier today. Patient currently clinically appears to be volume depleted, showing signs of dehydration though does have ascites. His skin is wrinkled, parched. I believe he is intravascularly depleted and spite of having ascites as a result of portal hypertension. Start gentle IV fluids normal saline at 50 cc an hour, closely monitor for any respiratory decompensation Noted to have ascites, elevated white blood cell count and lactate, could possibly have SBP. Start empiric ceftriaxone 1 g IV every 24 hours Ultrasound-guided paracentesis for diagnostic and therapeutic paracentesis in the a.m. by radiology. Ammonia noted to be at 112. Patient is currently awake alert and oriented, however his speech is intermittently slurred, he is slow to respond, takes time to understand the questions being asked to him. This is related to hepatic encephalopathy. Start lactulose 20 mg every 6 hours, titrate to 4-6 bowel movements per day. Trend ammonia level. Hold gabapentin CT of the abdomen and pelvis showing large left pleural effusion. Possible cholelithiasis or focal gallbladder wall thickening for which neoplastic disease is in the differential diagnosis. Last PET scan dating back to September 2023 had shown disease localized to the pancreas. There was additional concern for possible splenic infarct versus artifact. 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 DEDRA likely related to dehydration, cannot rule out hepatorenal syndrome. Start midodrine 10 mg 3 times daily, if persistently hypotensive would add albumin every 8 hours DVT prophylaxis: Heparin 5000 subcutaneously every 12 hours Patient states he is a DNR/DNI, however he would like to be full code until his Sister Shruti and get here from [place] to be at his bedside. December 05, 2023: Status post paracentesis today. Removal of 5 L fluid from the abdomen. Cell count does not appear to be consistent with SBP. Urine culture showing gram-negative rods pending further identification. Continue IV fluids. Awaiting echocardi[facility] results from [facility]. Continue midodrine, continue fluids. Discontinue heparin prophylaxis, patient's home list has been updated, start Pradaxa 150 mg p.o. twice daily as he takes at home. Additionally resume home dose of gabapentin Add rifaximin 550 mg p.o. twice daily for hepatic encephalopathy.Continue lactulose December 07, 2023 Clinically improving today. He is alert awake and oriented. Niece is at his bedside. WBC improving down to 14,000. Urine culture showing Pseudomonas aeruginosa. Antibiotics changed to ciprofloxacin 500 mg p.o. twice daily in keeping with culture results. Gabapentin to remain on hold. He is going to have bowel movements today. Continue IV fluids normal saline 100 cc an hour. Thus far does not appear to have reaccumulated any fluid in the abdomen as ascites. Add Protonix 40 mg p.o. twice daily for GI prophylaxis. Discontinue Pradaxa as platelet count down to 68,000 today. December 08, 2023 Continues to clinically improved. Leukocytosis now resolved. Renal function back to normal. Ammonia now normal at 45. Continuing lactulose. Patient is having several bowel movements. Hospital does not have rifaximin in stock anymore therefore he received his last dose today. Gabapentin to remain on hold. Continuing to hold Pradaxa due to platelet count of 64,000. Patient was recently diagnosed with A-fib with RVR and placed on anticoagulation for stroke prophylaxis. However his HAS-BLED score is currently at 4, correlating with an 8.9% risk of major bleeding. Therefore would likely not continue Pradaxa at the time of discharge. Discontinue IV fluids today. Encourage p.o. intake. Patient is stable for discharge today, however his niece is unable to pick him up and he has no way of getting home. Therefore we will plan to discharge him tomorrow morning when his family will pick him up tomorrow. Hypokalemia repleted IV. Attestations Medical Necessity Statement*: Hypokalemia, discontinue IV fluids, disposition planning, patient unable to get home today due to physically having no transport. Coding Level of Care Code Acute Code for Chg Fwd Moderate MDM includes number and complexity of problems actively addressed during encounter, amount and/or complexity of data reviewed/ordered and described risk of complication, morbidity or mortality of management as documented Diagnoses Cirrhosis K74.60 Hepatic encephalopathy K76.82 Portal hypertension K76.6 Ascites R18.8 Primary adenocarcinoma of tail of pancreas C25.2
--- NOTE | 2023-12-08 18:11 | PC.NURSE ---
Patient up and walked with walker from bed to door and back to other side of bed. Patient sitting on side of bed eating at the moment.
[2023-12-09] MEDS: lactulose oral liq 20 gm/30 mL UDC PO ×2 (00:26→06:08)
[2023-12-09] MEDS: acetaminophen 325 mg Tablet 650 MG PO (03:08)
[2023-12-09] MEDS: albumin 25 G/100 ML BAG 60 G IV (03:12)
[2023-12-09 04:00] VITALS: BP 101/62; PULSE 80; RESP 21; TEMP 36.5; O2SAT 98
[2023-12-09 04:20] LABS: Basophils % 0.2 %; Eosinophils # 0.2 10^3/uL (0.0-0.8); Eosinophils % 3.6 %; Hematocrit 23.8 % (37-53); Lymphocytes # 2.4 10^3/uL (0.8-4.8); Lymphocytes % 40.5 %; Mean Corpuscular HGB Conc 35.7 g/dL (30-55); Mean Corpuscular Hemoglobin 32.2 pg (27-33); Mean Corpuscular Volume 90.2 fl (82-101); Monocytes # 0.6 10^3/uL (0.2-0.9); Monocytes % 9.5 %; Neutrophils # 2.65 10^3/uL (1.8-7.7); Neutrophils % 44.8 %; Nucleated Red Blood Cells # 0.1 /100WBC; Platelet Count 59 10^3/cmm (157-399); Red Blood Count 2.64 10^6/uL (3.85-5.65)
[2023-12-09 04:49] LABS: Alanine Aminotransferase 8 U/L (0-41); Albumin Level 3.2 g/dL (3.5-5.2); Alkaline Phosphatase 88 U/L (40-130); Anion Gap 14.3 (5-19); Aspartate Amino Transferase 13 U/L (0-40); Blood Urea Nitrogen 15 mg/dL (8-23); Calcium 7.8 mg/dL (8.5-10.5); Carbon Dioxide 19 mmol/L (22-29); Chloride 109 mmol/L (98-107); Creatinine Clr Calc Pharmacy 112.8515; Globulin 1.6 g/dL (1.3-4.6); Glomerular Filtration Rate 112.8 mL/min (90-130); Glucose 93 mg/dL (65-115); Osmolality Calculated 289 mOsm/kg (285-295); Potassium 3.3 mmol/L (3.5-5.1); Sodium 139 mmol/L (136-145); Total Bilirubin 3.7 mg/dL (0.15-1.2); Total Protein 4.8 g/dL (6.6-8.7)
[2023-12-09 05:18] VITALS: PULSE 87
[2023-12-09 07:48] VITALS: BP 112/65; PULSE 85; RESP 18; TEMP 36.4; O2SAT 97
[2023-12-09] MEDS: midodrine 5 mg TABLET 10 MG PO (08:32)
[2023-12-09] MEDS: ciprofloxacin 500 mg Tablet PO (08:32)
[2023-12-09] MEDS: pantoprazole DR 40 mg Tablet PO (08:32)
--- NOTE | 2023-12-09 10:32 | P.DS_ITS ---
Discharge Providers Date of Admission: 12/04/23 17:39 Date of Discharge: December 09, 2023 Attending Provider at Admission: Olivia Ayers MD Attending Provider at Discharge: Lexx Hoyos MD Primary Care Provider: Debora Garcia MD Diagnoses at Discharge Discharge Diagnosis (1) Cirrhosis: Status: Acute (2) Hepatic encephalopathy: Status: Acute (3) Portal hypertension: Status: Acute (4) Ascites: Status: Acute (5) Primary adenocarcinoma of tail of pancreas: Status: Acute Reason for Visit Reason for Visit: low bp, Dr. norton sent over Hospital Course Hospital Course 68-year-old male who was admitted to the hospital for management evaluation decompensated liver cirrhosis, he has been diagnosed with alcohol liver cirrhosis, in the hospital he was treated for ascites, UTI, dehydration DEDRA hepatic encephalopathy. He has hepatic encephalopathy improved with use of lactulose and rifaximin. Status post 5 L paracentesis. Patient improved clinically during hospitalization. He was given IV fluids because he was intravascular depleted. He follows up with [facility] for adenocarcinoma of tail of pancreas he is considered not a good candidate because of liver cirrhosis. Home health services will be arranged at the time of discharge, he lives alone. Will also give him referral for paracentesis on as-needed basis. Pathology report is showing no signs of cancer. Patient does not have typical SBP presentation. Patient counseled on alcohol cessation. Will add Lasix, spironolactone, potassium supplementation and lactulose Patient was recently diagnosed with A-fib with RVR and placed on anticoagulation for stroke prophylaxis. However his HAS-BLED score is currently at 4, correlating with an 8.9% risk of major bleeding. Therefore would likely not continue Pradaxa at the time of discharge. Physical Exam Narrative: Hemodynamically stable Awake and alert GCS 15 S1, S2 Currently on room air Urinary Catheter Management: Jaramillo: Cath Placed During This Visit: yes Reason for Continuing Indwelling Catheter: Acute Urinary Retention or Obstruction Urinary Catheter Date of Insertion: 12/05/23 Urinary Catheter Time of Insertion: 16:20 Discharge Data Studies Completed and Pending Completed Studies During Hospitalization Category Date Time Status CT chest abdomen pelvis [CT chest abdpel w/*[id number] Cat Scan 12/04/23 14:12 Completed ] Stat XR chest 1V portable [id number] Stat Exams 12/04/23 12:11 Com[place] paracentesis abd w [id number] Routine Ultrasound 12/05/23 18:35 Completed Pending at discharge Category Date Time Status Amylase, Peritoneal Fluid Routine Lab 12/04/23 18:36 Ordered Blood Culture Stat Lab 12/04/23 12:54 Results Cytology [PTH] Routine Pth 12/04/23 18:36 Received Radiology Impressions Chest X-Ray 12/04/23 12:11 IMPRESSION: Stable chest without acute/subacute abnormality. Chest/Abdomen/Pelvis CT 12/04/23 14:12 IMPRESSION: Large left pleural effusion. IMPRESSION: 1. Question cholelithiasis or focal gallbladder wall thickening, in which neoplastic disease is in the differential diagnosis. Ultrasound follow-up is recommended for clarification. 2. 2.6 x 2.2 x 2.4 cm enhancing lesion in the pancreatic tail. In keeping with known history of pancreatic carcinoma. 3. Concern for a focal splenic infarct versus artifact. 4. Cirrhosis and severely decompensated portal hypertension. 5. Acute enterocolitis or portal entero colopathy. COMMENTS: 1. Please review chest CT performed concomitantly for other important findings. 2. Consistent with the [employer]'s Incidental Findings Committee white paper (J Am Nitin Radiol 2018): Any incidental renal lesion less than 1 cm or classified as too small to characterize, or any incidental cystic renal lesion characterized as simple-appearing, is likely benign. No follow-up imaging is recommended for these lesions per consensus recommendations based on imaging criteria. Paracentesis Ultrasound 12/05/23 18:35 IMPRESSION: Uncomplicated ultrasound-guided paracentesis. Removal of 5000 cc Laboratory Results WBC 5.90 10^3/uL (3.29-11.43) 12/09/23 02:57 RBC 2.64 10^6/uL (3.85-5.65) L 12/09/23 02:57 Hgb 8.50 g/dL (11.27-16.99) L 12/09/23 02:57 Hct 23.8 % (37-53) L 12/09/23 02:57 MCV 90.2 fl (82-101) 12/09/23 02:57 MCH 32.2 pg (27-33) 12/09/23 02:57 MCHC 35.7 g/dL (30-55) 12/09/23 02:57 RDW 17.0 % (12.1-15.1) H 12/09/23 02:57 Plt Count 59 10^3/cmm (157-399) L 12/09/23 02:57 MPV 12.0 fL (7.4-10.4) H 12/09/23 02:57 Neut % (Auto) 44.8 % 12/09/23 02:57 Lymph % (Auto) 40.5 % 12/09/23 02:57 Luna % (Auto) 9.5 % 12/09/23 02:57 Eos % (Auto) 3.6 % 12/09/23 02:57 Baso % (Auto) 0.2 % 12/09/23 02:57 Neut # (Auto) 2.65 10^3/uL (1.8-7.7) 12/09/23 02:57 Lymph # (Auto) 2.4 10^3/uL (0.8-4.8) 12/09/23 02:57 Luna # (Auto) 0.6 10^3/uL (0.2-0.9) 12/09/23 02:57 Eos # (Auto) 0.2 10^3/uL (0.0-0.8) 12/09/23 02:57 Baso # (Auto) 0.0 10^3/uL (0.0-0.1) 12/09/23 02:57 Nucleated RBC % (auto) 1.0 % 12/09/23 02:57 Nucleated RBCs # 0.1 /100WBC 12/09/23 02:57 Differential Comment Yes 12/05/23 12:36 PT 22.90 SECONDS (12.1-14.9) H 12/04/23 12:54 INR 1.95 (0.8-1.2) H 12/04/23 12:54 APTT 39.9 SECONDS (23.9-36.7) H 12/04/23 12:54 Specimen Type Arterial 12/04/23 14:28 Sample Site Radial, right 12/04/23 14:28 ABG pH 7.54 (7.35-7.45) H 12/04/23 14:28 ABG pCO2 20.2 mmHg (35-45) L 12/04/23 14:28 ABG pO2 80.7 mmHg (80.0-100.0) 12/04/23 14:28 ABG PO2/FiO2 Ratio 384 12/04/23 14:28 ABG HCO3 17.2 mmol/L (22-26) L 12/04/23 14:28 ABG O2 Saturation 97.5 12/04/23 14:28 ABG Base Excess -3.6 mmol/L (-2.0-2.0) L 12/04/23 14:28 Julio C Test Pos 12/04/23 14:28 A-a O2 Gradient 5.5 mmHg (5-10) 12/04/23 14:28 Hematocrit 35.6 % (42-52) L 12/04/23 14:28 Hgb O2 Saturation 96.2 % (95-100) 12/04/23 14:28 Carboxyhemoglobin 0.9 %THgb (0.4-20.1) 12/04/23 14:28 Methemoglobin 0.4 % (0.4-1.5) 12/04/23 14:28 Total Hemoglobin 11.6 g/dL (14-18) L 12/04/23 14:28 Sodium 128.0 mmol/L (131-143) L 12/04/23 14:28 Potassium 3.3 mmol/L (3.5-5.0) L 12/04/23 14:28 Glucose 143.0 mg/dL (70-115) H 12/04/23 14:28 Ionized Calcium 1.1 mmol/L (1.1-1.4) 12/04/23 14:28 O2 Delivery Device Room air 12/04/23 14:28 FiO2 21.0 % 12/04/23 14:28 Generating Plant Superintendent ID [place] 12/04/23 14:28 Sodium 139 mmol/L (136-145) 12/09/23 02:57 Potassium 3.3 mmol/L (3.5-5.1) L 12/09/23 02:57 Chloride 109 mmol/L (98-107) H 12/09/23 02:57 Carbon Dioxide 19 mmol/L (22-29) L 12/09/23 02:57 Anion Gap 14.3 (5-19) 12/09/23 02:57 BUN 15 mg/dL (8-23) 12/09/23 02:57 Creatinine 0.7 mg/dL (0.7-1.2) 12/09/23 02:57 GFR Calculation 112.8 mL/min (90-130) 12/09/23 02:57 Glucose 93 mg/dL (65-115) 12/09/23 02:57 Calculated Osmolality 289 mOsm/kg (285-295) 12/09/23 02:57 Lactic Acid 9.7 mmol/L (0.5-2.2) H* 12/04/23 12:54 Lactic Acid (Sepsis) 7.5 mmol/L (0.5-2.2) H* 12/04/23 16:02 Calcium 7.8 mg/dL (8.5-10.5) L 12/09/23 02:57 Magnesium 1.6 mg/dL (1.7-2.3) L 12/07/23 02:58 Total Bilirubin 3.7 mg/dL (0.15-1.2) H 12/09/23 02:57 AST 13 U/L (0-40) 12/09/23 02:57 ALT 8 U/L (0-41) 12/09/23 02:57 Alkaline Phosphatase 88 U/L (40-130) 12/09/23 02:57 Ammonia 45 umol/L (16-60) 12/08/23 04:17 C-Reactive Protein 43.9 mg/L (0.0-4.9) H 12/04/23 12:54 NT-Pro-B Natriuret Pep 1532 pg/mL (0-125) H 12/04/23 12:54 Total Protein 4.8 g/dL (6.6-8.7) L 12/09/23 02:57 Albumin 3.2 g/dL (3.5-5.2) L 12/09/23 02:57 Globulin 1.6 g/dL (1.3-4.6) 12/09/23 02:57 Lipase 19 U/L (13-60) 12/04/23 12:54 Urine Color Other (Yellow) A 12/04/23 15:25 Urine Appearance Slightly cloudy (CLEAR) 12/04/23 15:25 Urine pH 5 (5-7) 12/04/23 15:25 Ur Specific [place] 1.020 (1.005-1.030) 12/04/23 15:25 Urine Protein 1+ (Negative) H 12/04/23 15:25 Urine Glucose (UA) Norm (Normal) 12/04/23 15:25 Urine Ketones Negative (Negative) 12/04/23 15:25 Urine Blood 2+ (Negative) H 12/04/23 15:25 Urine Nitrate Negative (Negative) 12/04/23 15:25 Urine Bilirubin 2+ (Negative) H 12/04/23 15:25 Urine Urobilinogen 4+ mg/dL (Negative) H 12/04/23 15:25 Ur Leukocyte Esterase 1+ (Negative) H 12/04/23 15:25 Urine RBC None /hpf (0-2) 12/04/23 15:25 Urine WBC 11-20 /hpf (0-5) 12/04/23 15:25 Ur Squamous Epith Cells 0-4 /hpf (0-5) H 12/04/23 15:25 Amorphous Sediment Not Reportable 12/04/23 15:25 Urine Bacteria 2+ /hpf (NONE) H 12/04/23 15:25 Fluid Color Yellow 12/05/23 12:36 Fluid Appearance Cloudy 12/05/23 12:36 Fluid WBC 171 /uL 12/05/23 12:36 Fluid RBC 0 10^3/uL 12/05/23 12:36 Fld Polynuclear WBCs # 0.041 12/05/23 12:36 Fld Polynuclear WBCs % 24.000 % 12/05/23 12:36 Fl Mononucl WBCs #(Auto) 0.130 12/05/23 12:36 Fl Mononuclear % Auto 76.000 % 12/05/23 12:36 Fld Crystal Laterality Paracentesis 12/05/23 12:36 Fluid Albumin 0.9 g/dL 12/05/23 12:36 Fluid Alk Phosphatase 30 IU/L 12/05/23 12:36 Fluid Uric Acid 9 mg/dL 12/05/23 12:36 Vitals Last Vital Signs Temp 97.5 F L 12/09/23 07:48 Pulse 85 12/09/23 07:48 Resp 18 12/09/23 07:48 BP 112/65 12/09/23 07:48 Pulse Ox 97 12/09/23 07:48 O2 Del Method Room Air 12/09/23 07:48 Discharge Plan Discharge Patient Disposition: Home Condition: Stable Prescriptions: New ciprofloxacin HCl 500 mg Tablet 500 mg PO BID@0900,2100 Qty: 6 0RF spironolactone 25 mg tablet 12.5 mg PO DAILY Qty: 60 2RF Rx Instructions: hold if bp lower than 100/60mmhg lactulose 20 gram/30 mL Solution 20 g PO TID Qty: 3000 1RF midodrine 5 mg Tablet 10 mg PO TID Qty: 90 0RF furosemide [Lasix] 20 mg tablet 20 mg PO DAILY Qty: 60 3RF potassium chloride 10 mEq tablet extended release 10 meq PO DAILY Qty: 60 1RF Rx Instructions: with lasix only Continued cholecalciferol (vitamin D3) 25 mcg (1,000 unit) capsule 25 mcg PO DAILY fluticasone propion-salmeterol [Wixela Inhub] 250-50 mcg/dose blister with device 1 inh inhalation BID PRN (Reason: Shortness Of Breath Or Wheezing) gabapentin 300 mg capsule 300 mg PO TID Qty: 90 3RF tramadol 50 mg tablet 50 mg PO BID PRN (Reason: pain related to cancer and spine) Qty: 15 0RF Rx Instructions: Not to be taken with alcohol other opioids or benzodiazepines. diltiazem HCl 240 mg capsule,extended release 24 hr 240 mg PO DAILY Qty: 30 0RF clobetasol 0.05 % Ointment See Rx Instructions .ROUTE .COMPLEX Rx Instructions: APPLY SPARINGLY TO AFFECTED AREAS TO EXTREMITIES NEEDED. MO MORE THAN 2-3 WEEKS [facility] [place] TRIAMCINOL[place]. Discontinued atorvastatin 40 mg tablet 20 mg PO QPM hydrochlorothiazide 25 mg Tablet 25 mg PO DAILY methocarbamol 750 mg Tablet 750 mg PO BID PRN (Reason: MUSCLE SPASMS) Pradaxa 150 mg Capsule 150 mg PO BID Discharge Orders: Discharge Order (Routine); Ordered 12/09/23 Ordered By: Lexx Hoyos Other Ambulatory Orders: US paracentesis abd w [id number] (Routine) Timeframe: 1 Week Facility: [facility] - Location: Radiology Ordered By: Olivia Ayers Referrals: Debora Garcia MD [Primary Care Provider] - 4-7 days Patient Instructions: Opioid Safety Discharge Attestations Time Spent in Discharge Care*: greater than 30 min Quality Metrics Clinical Quality Measures [ No reported AMI, CVA or VTE this stay] Coding Level of Care Code Acute Code for Chg Fwd Diagnoses Cirrhosis K74.60 Hepatic encephalopathy K76.82 Portal hypertension K76.6 Ascites R18.8 Primary adenocarcinoma of tail of pancreas C25.2
[2023-12-09 11:37] VITALS: BP 102/71; PULSE 102; RESP 16; TEMP 36.4; O2SAT 97
--- NOTE | 2023-12-09 11:44 | PC.SOCIAL ---
IMM Updated Updated pt on IMM. No questions voiced. Provided pt a copy. Initialed, dated, & timed copy in chart.
--- NOTE | 2023-12-09 12:40 | PC.NURSE ---
1100 - diaz catheter removed. Intact. Tolerated well.
--- NOTE | 2023-12-09 12:59 | PC.NURSE ---
Pt discharge delay d/t waiting for urination p diaz removal.
--- NOTE | 2023-12-09 13:00 | PC.NURSE ---
Ref Lactulose d/t not wanting to have a BM during discharge trip home.
--- NOTE | 2023-12-09 14:40 | PC.NURSE ---
Pt continues to retain urine despite attempts to go. Bladder scan shows >999. Dr. Hoyos notified. New diaz placed. Urology follow-up made prior to discharge.
--- NOTE | 2023-12-09 15:37 | PC.NURSE ---
Niece and pt educated, in-depth, on diaz catheter use. 2 leg bags given to pt for home use.
[2023-12-09 15:38] VITALS: BP 102/71; PULSE 102; RESP 16; TEMP 36.4; O2SAT 97
[2023-12-10 20:14] LABS: Amylase, Peritoneal Fluid <10 U/L
== END 2023-12-09 15:39 | disposition home health service (06) | DRG 433 ==
LOC: ER 17:13 → MEDSURG 17:39
PROVIDERS: Admitting Provider Student in an Organized Health Care Education/Training Program; Emergency Provider Emergency Medicine; PCP Family Medicine; Visit Provider Internal Medicine
DX: K70.31 Alcoholic cirrhosis of liver with ascites (principal); C25.2 Malignant neoplasm of tail of pancreas; K76.6 Portal hypertension; N39.0 Urinary tract infection, site not specified; N17.9 Acute kidney failure, unspecified; J90 Pleural effusion, not elsewhere classified; F10.90 Alcohol use, unspecified, uncomplicated; K76.82 Hepatic encephalopathy; B96.5 Pseudomonas (aeruginosa) (mallei) (pseudomallei) as the cause of diseases classified elsewhere; E86.0 Dehydration; I50.9 Heart failure, unspecified; G62.9 Polyneuropathy, unspecified; I10 Essential (primary) hypertension; J44.9 Chronic obstructive pulmonary disease, unspecified; K52.9 Noninfective gastroenteritis and colitis, unspecified; I48.91 Unspecified atrial fibrillation; E87.6 Hypokalemia; Z87.891 Personal history of nicotine dependence; Z79.01 Long term (current) use of anticoagulants; Z66 Do not resuscitate
CPT/HCPCS: 36415; 36600; 49083; 51702; 71045; 71260; 74177; 80051; 80053; 80503; 81001; 82042; 82140; 82150; 82330; 82805; 83605; 83690; 83735; 83880; 84075; 84560; 85025; 85610; 85730; 86140; 87040; 87070; 87075; 87077; 87086; 87186; 87205; 88112; 89050; 93005; 96365; 96372; 96375; 97116; 97161; 97530; 99205; 99212; 99285; J0696; J1644; J2020; J2185; J3480; J7030; P9046; Q9967